=== PATIENT | male | born 1950 | race Caucasian/White ===

== ENCOUNTER → 2020-07-10 09:47 | Outpatient (BNVA) | payer MEDICARE, OTHER, SELFPAY | PROVIDERS: PCP Physician Assistant; Visit Provider Internal Medicine | DX: I48.19 Other persistent atrial fibrillation (principal); Z51.81 Encounter for therapeutic drug level monitoring; Z79.01 Long term (current) use of anticoagulants | CPT/HCPCS: 99211 ==

== ENCOUNTER → 2020-07-24 09:35 | Outpatient (BNVA) | payer MEDICARE, OTHER, SELFPAY | PROVIDERS: PCP Physician Assistant; Visit Provider Internal Medicine | DX: I48.19 Other persistent atrial fibrillation (principal); Z51.81 Encounter for therapeutic drug level monitoring; Z79.01 Long term (current) use of anticoagulants | CPT/HCPCS: Q3014 ==

== ENCOUNTER → 2020-08-07 08:54 | Outpatient (BNVA) | payer MEDICARE, OTHER, SELFPAY | PROVIDERS: PCP Physician Assistant; Visit Provider Internal Medicine | DX: Z76.89 Persons encountering health services in other specified circumstances (principal) ==

== ENCOUNTER → 2020-08-21 14:40 | Outpatient (BNVA) | payer MEDICARE, OTHER, SELFPAY | PROVIDERS: PCP Physician Assistant; Visit Provider Internal Medicine | DX: I48.19 Other persistent atrial fibrillation (principal); Z51.81 Encounter for therapeutic drug level monitoring; Z79.01 Long term (current) use of anticoagulants | CPT/HCPCS: 99211 ==

== ENCOUNTER → 2020-09-02 13:48 | Outpatient (BNVA) | payer MEDICARE, OTHER, SELFPAY | PROVIDERS: PCP Physician Assistant; Visit Provider Internal Medicine | DX: Z76.89 Persons encountering health services in other specified circumstances (principal) ==

== ENCOUNTER → 2020-09-11 14:20 | Outpatient (BNVA) | payer MEDICARE, OTHER, SELFPAY | PROVIDERS: PCP Physician Assistant; Visit Provider Internal Medicine | DX: Z76.89 Persons encountering health services in other specified circumstances (principal) ==

== ENCOUNTER → 2020-09-25 15:13 | Outpatient (BNVA) | payer MEDICARE, OTHER, SELFPAY | PROVIDERS: PCP Physician Assistant; Visit Provider Internal Medicine | DX: Z76.89 Persons encountering health services in other specified circumstances (principal) ==

== ENCOUNTER → 2020-10-09 14:06 | Outpatient (BNVA) | payer MEDICARE, OTHER, SELFPAY | PROVIDERS: PCP Physician Assistant; Visit Provider Internal Medicine | DX: Z76.89 Persons encountering health services in other specified circumstances (principal) ==

== ENCOUNTER → 2020-10-25 14:18 | Outpatient (BNVA) | payer MEDICARE, OTHER, SELFPAY | PROVIDERS: PCP Physician Assistant; Visit Provider Internal Medicine ==

== ENCOUNTER → 2020-11-08 15:03 | Outpatient (BNVA) | payer MEDICARE, OTHER, SELFPAY | PROVIDERS: PCP Physician Assistant; Visit Provider Internal Medicine ==

== ENCOUNTER 2020-11-11 13:42 | Outpatient (REF) | payer MEDICARE, OTHER, SELFPAY | END 2020-11-11 13:43 | disposition home or self-care (01) | LOC: HO.LAB 13:42 | PROVIDERS: Visit Provider Internal Medicine | DX: Z20.822 Contact with and (suspected) exposure to COVID-19 (principal) | CPT/HCPCS: 36415; C9803; U0003; U0005 ==

== ENCOUNTER → 2020-11-20 11:28 | Outpatient (BNVA) | payer MEDICARE, OTHER, SELFPAY | PROVIDERS: PCP Physician Assistant; Visit Provider Internal Medicine ==

== ENCOUNTER → 2020-11-27 16:27 | Outpatient (BNVA) | payer MEDICARE, OTHER, SELFPAY | PROVIDERS: PCP Physician Assistant; Visit Provider Internal Medicine ==

== ENCOUNTER → 2020-12-11 13:22 | Outpatient (BNVA) | payer MEDICARE, OTHER, SELFPAY | PROVIDERS: PCP Physician Assistant; Visit Provider Internal Medicine ==

== ENCOUNTER 2020-12-17 10:09 | Outpatient (REF) | payer MEDICARE, OTHER, SELFPAY | END 2020-12-17 10:10 | disposition home or self-care (01) | LOC: HO.LAB 10:09 | PROVIDERS: Visit Provider Internal Medicine | DX: Z13.89 Encounter for screening for other disorder (principal) | CPT/HCPCS: 36415; C9803; U0003 ==

== ENCOUNTER 2020-12-17 11:10 | Outpatient (REF) | payer MEDICARE, OTHER, SELFPAY ==
[2020-12-17 13:33] LABS: Estimated Average Glucose 108 mg/dL; Hemoglobin A1c % 5.4 %
[2020-12-17 13:38] LABS: Hematocrit 48.4 % (42-52); Hemoglobin 16.9 g/dl (14.0-18.0); Mean Corpuscular HGB Conc 34.9 g/dl (31.0-36.0); Mean Corpuscular Hemoglobin 33.7 pg (27.0-33.0); Mean Corpuscular Volume 96.4 fL (80-98); Mean Platelet Volume 11.8 fL (9.4-12.4); Platelet Count 179 X10*3/uL (160-400); Red Blood Count 5.02 X10*6/uL (4.60-5.80); Red Cell Distribution Width 14.8 % (11.0-16.0); White Blood Count 8.4 X10*3/uL (4.8-10.8)
[2020-12-17 13:44] LABS: Alanine Aminotransferase 22 U/L (0-40); Albumin Level 4.1 g/dL (3.5-5.0); Alkaline Phosphatase 44 U/L (39-117); Anion Gap 10 (12-20); Aspartate Amino Transferase 25 U/L (5-37); Bilirubin Total 0.9 mg/dL (0.0-1.0); Blood Urea Nitrogen 21 mg/dL (9-16); Calcium 8.5 mg/dL (8.4-10.2); Carbon Dioxide 26 mmol/L (22-29); Chloride 108 mmol/L (96-108); Cholesterol 157 mg/dL; Estimated Glomerular Filt Rate > 60; Glucose Fasting 96 mg/dL (60-99); HDL Cholesterol 44 mg/dL; LDL Cholesterol Calculated 85 mg/dl; Potassium 4.4 mmol/L (3.3-5.1); Sodium 140 mmol/L (135-145); Total Protein 6.7 g/dL (6.5-8.0); Triglycerides 140 mg/dL
[2020-12-17 13:57] LABS: TSH reflex Free T4 2.25 uIU/mL (0.32-4.0)
== END 2020-12-17 11:11 | disposition home or self-care (01) ==
LOC: HO.10HDL 11:10
PROVIDERS: Visit Provider Physician Assistant
DX: I10 Essential (primary) hypertension (principal); I48.19 Other persistent atrial fibrillation; E78.2 Mixed hyperlipidemia; Z20.822 Contact with and (suspected) exposure to COVID-19
CPT/HCPCS: 36415; 80053; 80061; 83036; 84443; 85027; C9803; U0003

== ENCOUNTER → 2020-12-25 12:41 | Outpatient (BNVA) | payer MEDICARE, OTHER, SELFPAY | PROVIDERS: PCP Physician Assistant; Visit Provider Internal Medicine ==

== ENCOUNTER → 2021-01-08 11:18 | Outpatient (BNVA) | payer MEDICARE, OTHER, SELFPAY | PROVIDERS: PCP Physician Assistant; Visit Provider Internal Medicine | DX: I48.19 Other persistent atrial fibrillation (principal); Z51.81 Encounter for therapeutic drug level monitoring; Z79.01 Long term (current) use of anticoagulants | CPT/HCPCS: Q3014 ==

== ENCOUNTER 2021-01-14 11:01 | Outpatient (REF) | payer MEDICARE, OTHER, SELFPAY | END 2021-01-14 11:02 | disposition home or self-care (01) | LOC: HO.LAB 11:01 | PROVIDERS: Visit Provider Internal Medicine | DX: Z20.822 Contact with and (suspected) exposure to COVID-19 (principal) | CPT/HCPCS: C9803; U0003; U0005 ==

== ENCOUNTER → 2021-01-16 10:23 | Outpatient (BNVA) | payer MEDICARE, OTHER, SELFPAY | PROVIDERS: PCP Physician Assistant; Visit Provider Internal Medicine | DX: I48.19 Other persistent atrial fibrillation (principal); Z79.01 Long term (current) use of anticoagulants; Z51.81 Encounter for therapeutic drug level monitoring | CPT/HCPCS: Q3014 ==

== ENCOUNTER → 2021-01-22 14:57 | Outpatient (BNVA) | payer MEDICARE, OTHER, SELFPAY | PROVIDERS: PCP Physician Assistant; Visit Provider Internal Medicine ==

== ENCOUNTER → 2021-01-29 14:41 | Outpatient (BNVA) | payer MEDICARE, OTHER, SELFPAY | PROVIDERS: PCP Physician Assistant; Visit Provider Internal Medicine ==

== ENCOUNTER → 2021-02-12 13:36 | Outpatient (BNVA) | payer MEDICARE, OTHER, SELFPAY | PROVIDERS: PCP Physician Assistant; Visit Provider Internal Medicine ==

== ENCOUNTER → 2021-02-26 12:02 | Outpatient (BNVA) | payer MEDICARE, OTHER, SELFPAY | PROVIDERS: PCP Physician Assistant; Visit Provider Internal Medicine ==

== ENCOUNTER → 2021-03-12 13:32 | Outpatient (BNVA) | payer MEDICARE, OTHER, SELFPAY | PROVIDERS: PCP Physician Assistant; Visit Provider Internal Medicine | DX: I48.19 Other persistent atrial fibrillation (principal) | CPT/HCPCS: Q3014 ==

== ENCOUNTER → 2021-03-19 15:50 | Outpatient (BNVA) | payer MEDICARE, OTHER, SELFPAY | PROVIDERS: PCP Physician Assistant; Visit Provider Internal Medicine ==

== ENCOUNTER → 2021-04-03 11:18 | Outpatient (BNVA) | payer MEDICARE, OTHER, SELFPAY | PROVIDERS: PCP Physician Assistant; Visit Provider Internal Medicine | DX: I48.19 Other persistent atrial fibrillation (principal); Z51.81 Encounter for therapeutic drug level monitoring; Z79.01 Long term (current) use of anticoagulants | CPT/HCPCS: Q3014 ==

== ENCOUNTER → 2021-04-21 11:42 | Outpatient (BNVA) | payer MEDICARE, OTHER, SELFPAY | PROVIDERS: PCP Physician Assistant; Visit Provider Internal Medicine ==

== ENCOUNTER → 2021-05-07 13:52 | Outpatient (BNVA) | payer MEDICARE, OTHER, SELFPAY | PROVIDERS: PCP Physician Assistant; Visit Provider Internal Medicine | DX: I48.19 Other persistent atrial fibrillation (principal) | CPT/HCPCS: Q3014 ==

== ENCOUNTER → 2021-05-09 15:12 | Outpatient (BNVA) | payer MEDICARE, OTHER, SELFPAY | PROVIDERS: PCP Physician Assistant; Visit Provider Internal Medicine | DX: I48.19 Other persistent atrial fibrillation (principal) | CPT/HCPCS: Q3014 ==

== ENCOUNTER → 2021-05-12 16:36 | Outpatient (BNVA) | payer MEDICARE, OTHER, SELFPAY | PROVIDERS: PCP Physician Assistant; Visit Provider Internal Medicine | DX: Z13.89 Encounter for screening for other disorder (principal) | CPT/HCPCS: Q3014 ==

== ENCOUNTER → 2021-05-21 13:15 | Outpatient (BNVA) | payer MEDICARE, OTHER, SELFPAY | PROVIDERS: PCP Physician Assistant; Visit Provider Internal Medicine | DX: I48.19 Other persistent atrial fibrillation (principal); Z51.81 Encounter for therapeutic drug level monitoring; Z79.01 Long term (current) use of anticoagulants | CPT/HCPCS: 85610; 99211 ==

== ENCOUNTER → 2021-05-23 13:43 | Outpatient (BNVA) | payer MEDICARE, OTHER, SELFPAY | PROVIDERS: PCP Physician Assistant; Visit Provider Internal Medicine | DX: I48.19 Other persistent atrial fibrillation (principal) | CPT/HCPCS: Q3014 ==

== ENCOUNTER → 2021-05-27 14:11 | Outpatient (BNVA) | payer MEDICARE, OTHER, SELFPAY | PROVIDERS: PCP Physician Assistant; Visit Provider Internal Medicine ==

== ENCOUNTER → 2021-06-03 10:46 | Outpatient (BNVA) | payer MEDICARE, OTHER, SELFPAY | PROVIDERS: PCP Physician Assistant; Visit Provider Internal Medicine ==

== ENCOUNTER 2021-06-04 15:52 | Outpatient (REF) | payer MEDICARE, OTHER, SELFPAY ==
[2021-06-04 17:05] LABS: Hematocrit 47.4 % (42-52); Hemoglobin 16.4 g/dl (14.0-18.0); Mean Corpuscular HGB Conc 34.6 g/dl (31.0-36.0); Mean Corpuscular Hemoglobin 33.3 pg (27.0-33.0); Mean Corpuscular Volume 96.3 fL (80-98); Mean Platelet Volume 10.8 fL (9.4-12.4); Platelet Count 217 X10*3/uL (160-400); Red Blood Count 4.92 X10*6/uL (4.60-5.80); Red Cell Distribution Width 15.3 % (11.0-16.0); White Blood Count 8.7 X10*3/uL (4.8-10.8)
[2021-06-04 17:26] LABS: Alanine Aminotransferase 18 U/L (0-40); Alkaline Phosphatase 47 U/L (39-117); Anion Gap 10 (12-20); Aspartate Amino Transferase 23 U/L (5-37); Bilirubin Direct 0.2 mg/dL (0.0-0.5); Bilirubin Total 0.5 mg/dL (0.0-1.0); Blood Urea Nitrogen 23 mg/dL (9-16); Calcium 9.2 mg/dL (8.4-10.2); Carbon Dioxide 28 mmol/L (22-29); Chloride 106 mmol/L (96-108); Estimated Glomerular Filt Rate > 60; Glucose Random 100 mg/dL (60-115); Potassium 4.4 mmol/L (3.3-5.1); Sodium 140 mmol/L (135-145); Total Protein 6.7 g/dL (6.5-8.0)
== END 2021-06-04 15:53 | disposition home or self-care (01) ==
LOC: HO.LAB 15:52
PROVIDERS: Visit Provider Physician Assistant
DX: Z01.818 Encounter for other preprocedural examination (principal); I10 Essential (primary) hypertension
CPT/HCPCS: 36415; 80048; 80076; 85027

== ENCOUNTER 2021-06-10 11:39 | Outpatient (REF) | payer MEDICARE, OTHER, SELFPAY | END 2021-06-10 11:40 | disposition home or self-care (01) | LOC: HO.LAB 11:39 | PROVIDERS: PCP Physician Assistant; Visit Provider Internal Medicine | DX: Z20.822 Contact with and (suspected) exposure to COVID-19 (principal) | CPT/HCPCS: C9803; U0003; U0005 ==

== ENCOUNTER → 2021-06-11 12:58 | Outpatient (BNVA) | payer MEDICARE, OTHER, SELFPAY | PROVIDERS: PCP Physician Assistant; Visit Provider Internal Medicine | DX: I48.19 Other persistent atrial fibrillation (principal); Z51.81 Encounter for therapeutic drug level monitoring; Z79.01 Long term (current) use of anticoagulants | CPT/HCPCS: Q3014 ==

== ENCOUNTER → 2021-06-27 13:57 | Outpatient (BNVA) | payer MEDICARE, OTHER, SELFPAY | PROVIDERS: PCP Physician Assistant; Visit Provider Internal Medicine | DX: I48.19 Other persistent atrial fibrillation (principal); Z51.81 Encounter for therapeutic drug level monitoring; Z79.01 Long term (current) use of anticoagulants | CPT/HCPCS: Q3014 ==

== ENCOUNTER → 2021-06-30 09:43 | Outpatient (BNVA) | payer MEDICARE, OTHER, SELFPAY | PROVIDERS: PCP Physician Assistant; Visit Provider Internal Medicine | DX: I48.19 Other persistent atrial fibrillation (principal) | CPT/HCPCS: Q3014 ==

== ENCOUNTER → 2021-07-02 09:48 | Outpatient (BNVA) | payer MEDICARE, OTHER, SELFPAY | PROVIDERS: PCP Physician Assistant; Visit Provider Internal Medicine | DX: I48.19 Other persistent atrial fibrillation (principal) | CPT/HCPCS: Q3014 ==

== ENCOUNTER → 2021-07-04 14:22 | Outpatient (BNVA) | payer MEDICARE, OTHER, SELFPAY | PROVIDERS: PCP Physician Assistant; Visit Provider Internal Medicine | DX: I48.19 Other persistent atrial fibrillation (principal) | CPT/HCPCS: Q3014 ==

== ENCOUNTER → 2021-07-07 13:26 | Outpatient (BNVA) | payer MEDICARE, OTHER, SELFPAY | PROVIDERS: PCP Physician Assistant; Visit Provider Internal Medicine | DX: I48.19 Other persistent atrial fibrillation (principal) | CPT/HCPCS: Q3014 ==

== ENCOUNTER → 2021-07-08 14:33 | Outpatient (BNVA) | payer MEDICARE, OTHER, SELFPAY | PROVIDERS: PCP Physician Assistant; Visit Provider Internal Medicine | DX: I48.19 Other persistent atrial fibrillation (principal) | CPT/HCPCS: Q3014 ==

== ENCOUNTER → 2021-07-09 11:08 | Outpatient (BNVA) | payer MEDICARE, OTHER, SELFPAY | PROVIDERS: PCP Physician Assistant; Visit Provider Internal Medicine | DX: I48.19 Other persistent atrial fibrillation (principal) | CPT/HCPCS: Q3014 ==

== ENCOUNTER → 2021-07-10 15:16 | Outpatient (BNVA) | payer MEDICARE, OTHER, SELFPAY | PROVIDERS: PCP Physician Assistant; Visit Provider Internal Medicine | DX: I48.19 Other persistent atrial fibrillation (principal) | CPT/HCPCS: Q3014 ==

== ENCOUNTER → 2021-07-16 09:59 | Outpatient (BNVA) | payer MEDICARE, OTHER, SELFPAY | PROVIDERS: PCP Physician Assistant; Visit Provider Internal Medicine | DX: I48.19 Other persistent atrial fibrillation (principal); Z51.81 Encounter for therapeutic drug level monitoring; Z79.01 Long term (current) use of anticoagulants | CPT/HCPCS: Q3014 ==

== ENCOUNTER → 2021-07-23 15:48 | Outpatient (BNVA) | payer MEDICARE, OTHER, SELFPAY | PROVIDERS: PCP Physician Assistant; Visit Provider Internal Medicine ==

== ENCOUNTER → 2021-07-31 08:12 | Outpatient (BNVA) | payer MEDICARE, OTHER, SELFPAY | PROVIDERS: PCP Physician Assistant; Visit Provider Internal Medicine | DX: I48.19 Other persistent atrial fibrillation (principal) | CPT/HCPCS: Q3014 ==

== ENCOUNTER → 2021-08-07 09:35 | Outpatient (BNVA) | payer MEDICARE, OTHER, SELFPAY | PROVIDERS: PCP Physician Assistant; Visit Provider Internal Medicine ==

== ENCOUNTER → 2021-08-13 14:53 | Outpatient (BNVA) | payer MEDICARE, OTHER, SELFPAY | PROVIDERS: PCP Physician Assistant; Visit Provider Internal Medicine | DX: I48.19 Other persistent atrial fibrillation (principal); Z51.81 Encounter for therapeutic drug level monitoring; Z79.01 Long term (current) use of anticoagulants | CPT/HCPCS: Q3014 ==

== ENCOUNTER → 2021-09-03 13:24 | Outpatient (BNVA) | payer MEDICARE, OTHER, SELFPAY | PROVIDERS: PCP Physician Assistant; Visit Provider Internal Medicine | DX: I48.19 Other persistent atrial fibrillation (principal) | CPT/HCPCS: Q3014 ==

== ENCOUNTER → 2021-09-10 15:19 | Outpatient (BNVA) | payer MEDICARE, OTHER, SELFPAY | PROVIDERS: PCP Physician Assistant; Visit Provider Internal Medicine | DX: I48.19 Other persistent atrial fibrillation (principal) | CPT/HCPCS: Q3014 ==

== ENCOUNTER → 2021-09-17 14:13 | Outpatient (BNVA) | payer MEDICARE, OTHER, SELFPAY | PROVIDERS: PCP Physician Assistant; Visit Provider Internal Medicine ==

== ENCOUNTER → 2021-09-24 15:48 | Outpatient (BNVA) | payer MEDICARE, OTHER, SELFPAY | PROVIDERS: PCP Physician Assistant; Visit Provider Internal Medicine ==

== ENCOUNTER → 2021-10-01 12:53 | Outpatient (BNVA) | payer MEDICARE, OTHER, SELFPAY | PROVIDERS: PCP Physician Assistant; Visit Provider Internal Medicine ==

== ENCOUNTER → 2021-10-08 15:18 | Outpatient (BNVA) | payer MEDICARE, OTHER, SELFPAY | PROVIDERS: PCP Physician Assistant; Visit Provider Internal Medicine ==

== ENCOUNTER → 2021-10-15 15:08 | Outpatient (BNVA) | payer MEDICARE, OTHER, SELFPAY | PROVIDERS: PCP Physician Assistant; Visit Provider Internal Medicine ==

== ENCOUNTER → 2021-10-29 15:34 | Outpatient (BNVA) | payer MEDICARE, OTHER, SELFPAY | PROVIDERS: PCP Physician Assistant; Visit Provider Internal Medicine ==

== ENCOUNTER → 2021-11-13 14:12 | Outpatient (BNVA) | payer MEDICARE, OTHER, SELFPAY | PROVIDERS: PCP Physician Assistant; Visit Provider Internal Medicine | DX: Z13.89 Encounter for screening for other disorder (principal) ==

== ENCOUNTER → 2021-11-26 11:44 | Outpatient (BNVA) | payer MEDICARE, OTHER, SELFPAY | PROVIDERS: PCP Physician Assistant; Visit Provider Internal Medicine | DX: Z13.89 Encounter for screening for other disorder (principal) ==

== ENCOUNTER → 2021-12-10 13:06 | Outpatient (BNVA) | payer MEDICARE, OTHER, SELFPAY | PROVIDERS: PCP Physician Assistant; Visit Provider Internal Medicine | DX: Z13.89 Encounter for screening for other disorder (principal) ==

== ENCOUNTER → 2021-12-24 13:59 | Outpatient (BNVA) | payer MEDICARE, OTHER, SELFPAY | PROVIDERS: PCP Physician Assistant; Visit Provider Internal Medicine | DX: Z13.89 Encounter for screening for other disorder (principal) ==

== ENCOUNTER → 2022-01-13 12:00 | Outpatient (BNVA) | payer MEDICARE, OTHER, SELFPAY | PROVIDERS: PCP Physician Assistant; Visit Provider Internal Medicine | DX: I48.19 Other persistent atrial fibrillation (principal); Z51.81 Encounter for therapeutic drug level monitoring; Z79.01 Long term (current) use of anticoagulants | CPT/HCPCS: Q3014 ==

== ENCOUNTER → 2022-01-20 15:38 | Outpatient (BNVA) | payer MEDICARE, OTHER, SELFPAY | PROVIDERS: PCP Physician Assistant; Visit Provider Internal Medicine | DX: Z13.89 Encounter for screening for other disorder (principal) ==

== ENCOUNTER → 2022-02-04 14:20 | Outpatient (BNVA) | payer MEDICARE, OTHER, SELFPAY | PROVIDERS: PCP Physician Assistant; Visit Provider Internal Medicine | DX: Z13.89 Encounter for screening for other disorder (principal) ==

== ENCOUNTER → 2022-02-18 13:57 | Outpatient (BNVA) | payer MEDICARE, OTHER, SELFPAY | PROVIDERS: PCP Physician Assistant; Visit Provider Internal Medicine | DX: Z79.01 Long term (current) use of anticoagulants (principal) ==

== ENCOUNTER → 2022-03-05 13:56 | Outpatient (BNVA) | payer MEDICARE, OTHER, SELFPAY | PROVIDERS: PCP Physician Assistant; Visit Provider Internal Medicine | DX: Z79.01 Long term (current) use of anticoagulants (principal) ==

== ENCOUNTER 2022-04-28 10:58 | Outpatient (REF) | payer MEDICARE, OTHER, SELFPAY ==
[2022-04-28 13:43] LABS: Hematocrit 46.2 % (42.0-52.0); Hemoglobin 15.9 g/dl (14.0-18.0); Mean Corpuscular HGB Conc 34.4 g/dl (31.0-36.0); Mean Corpuscular Hemoglobin 32.8 pg (27.0-33.0); Mean Corpuscular Volume 95.3 fL (80.0-98.0); Mean Platelet Volume 11.2 fL (9.4-12.4); Platelet Count 215 X10*3/uL (160-400); Red Blood Count 4.85 X10*6/uL (4.60-5.80); Red Cell Distribution Width 15.3 % (11.0-16.0)
[2022-04-28 16:10] LABS: Anion Gap 11 (12-20); Blood Urea Nitrogen 18 mg/dL (9-16); Calcium 8.7 mg/dL (8.4-10.2); Carbon Dioxide 26 mmol/L (22-29); Chloride 109 mmol/L (96-108); Estimated Glomerular Filt Rate > 60; Glucose Random 77 mg/dL (60-115); Iron 117 mcg/dL (45-160); Potassium 4.5 mmol/L (3.3-5.1); Sodium 141 mmol/L (135-145)
[2022-04-28 16:11] LABS: Percent Iron Saturation 49 % (15-50); Total Iron Binding Capacity 240 mcg/dL (228-428); Unsaturated Iron Binding 123 ug/dL
== END 2022-04-28 10:59 | disposition home or self-care (01) ==
LOC: HO.10HDL 10:58
PROVIDERS: Visit Provider Physician Assistant
DX: I95.0 Idiopathic hypotension (principal); D50.9 Iron deficiency anemia, unspecified
CPT/HCPCS: 36415; 80048; 83540; 85027

== ENCOUNTER → 2022-05-13 13:42 | Outpatient (BNVA) | payer MEDICARE, OTHER, SELFPAY | PROVIDERS: PCP Physician Assistant; Visit Provider Internal Medicine | DX: I48.19 Other persistent atrial fibrillation (principal); Z79.01 Long term (current) use of anticoagulants; Z51.81 Encounter for therapeutic drug level monitoring | CPT/HCPCS: Q3014 ==

== ENCOUNTER → 2022-05-21 13:06 | Outpatient (BNVA) | payer MEDICARE, OTHER, SELFPAY | PROVIDERS: PCP Physician Assistant; Visit Provider Internal Medicine | DX: I48.19 Other persistent atrial fibrillation (principal); Z79.01 Long term (current) use of anticoagulants; Z51.81 Encounter for therapeutic drug level monitoring | CPT/HCPCS: 85610; 99211 ==

== ENCOUNTER → 2022-06-04 15:17 | Outpatient (BNVA) | payer MEDICARE, OTHER, SELFPAY | PROVIDERS: PCP Physician Assistant; Visit Provider Internal Medicine | DX: I48.19 Other persistent atrial fibrillation (principal); Z51.81 Encounter for therapeutic drug level monitoring; Z79.01 Long term (current) use of anticoagulants | CPT/HCPCS: Q3014 ==

== ENCOUNTER → 2022-08-18 09:52 | Outpatient (BNVA) | payer MEDICARE, OTHER, SELFPAY | PROVIDERS: PCP Physician Assistant; Visit Provider Psychiatry & Neurology Neurology | DX: G30.9 Alzheimer's disease, unspecified (principal); F02.80 Dementia in other diseases classified elsewhere, unspecified severity, without behavioral disturbance, psychotic disturbance, mood disturbance, and anxiety; G47.33 Obstructive sleep apnea (adult) (pediatric) | CPT/HCPCS: 99202 ==

== ENCOUNTER → 2022-09-23 10:56 | Outpatient (BNVA) | payer MEDICARE, OTHER, SELFPAY | PROVIDERS: PCP Physician Assistant; Visit Provider Internal Medicine | DX: Z79.01 Long term (current) use of anticoagulants (principal) ==

== ENCOUNTER → 2022-09-29 15:10 | Outpatient (BNVA) | payer MEDICARE, OTHER, SELFPAY | PROVIDERS: PCP Physician Assistant; Visit Provider Internal Medicine | DX: Z79.01 Long term (current) use of anticoagulants (principal) ==

== ENCOUNTER → 2022-10-07 13:07 | Outpatient (BNVA) | payer MEDICARE, OTHER, SELFPAY | PROVIDERS: PCP Physician Assistant; Visit Provider Internal Medicine | DX: Z79.01 Long term (current) use of anticoagulants (principal) ==

== ENCOUNTER → 2022-10-14 10:43 | Outpatient (BNVA) | payer MEDICARE, OTHER, SELFPAY | PROVIDERS: PCP Physician Assistant; Visit Provider Internal Medicine | DX: Z79.01 Long term (current) use of anticoagulants (principal) ==

== ENCOUNTER → 2022-10-22 14:59 | Outpatient (BNVA) | payer MEDICARE, OTHER, SELFPAY | PROVIDERS: PCP Physician Assistant; Visit Provider Internal Medicine | DX: Z79.01 Long term (current) use of anticoagulants (principal) ==

== ENCOUNTER → 2022-10-28 13:17 | Outpatient (BNVA) | payer MEDICARE, OTHER, SELFPAY | PROVIDERS: PCP Physician Assistant; Visit Provider Internal Medicine | DX: Z79.01 Long term (current) use of anticoagulants (principal) ==

== ENCOUNTER → 2022-11-04 10:42 | Outpatient (BNVA) | payer MEDICARE, OTHER, SELFPAY | PROVIDERS: PCP Physician Assistant; Visit Provider Internal Medicine | DX: Z79.01 Long term (current) use of anticoagulants (principal) ==

== ENCOUNTER → 2022-11-18 11:54 | Outpatient (BNVA) | payer MEDICARE, OTHER, SELFPAY | PROVIDERS: PCP Physician Assistant; Visit Provider Internal Medicine | DX: Z79.01 Long term (current) use of anticoagulants (principal) ==

== ENCOUNTER → 2022-12-02 10:41 | Outpatient (BNVA) | payer MEDICARE, OTHER, SELFPAY | PROVIDERS: PCP Physician Assistant; Visit Provider Internal Medicine | DX: Z79.01 Long term (current) use of anticoagulants (principal) ==

== ENCOUNTER → 2022-12-16 09:08 | Outpatient (BNVA) | payer MEDICARE, OTHER, SELFPAY | PROVIDERS: PCP Physician Assistant; Visit Provider Internal Medicine | DX: Z79.01 Long term (current) use of anticoagulants (principal) ==

== ENCOUNTER → 2022-12-30 14:31 | Outpatient (BNVA) | payer MEDICARE, OTHER, SELFPAY | PROVIDERS: PCP Physician Assistant; Visit Provider Internal Medicine | DX: Z79.01 Long term (current) use of anticoagulants (principal) ==

== ENCOUNTER → 2023-01-13 14:50 | Outpatient (BNVA) | payer MEDICARE, OTHER, SELFPAY | PROVIDERS: PCP Physician Assistant; Visit Provider Internal Medicine ==

== ENCOUNTER 2023-01-20 09:47 | Outpatient (REF) | payer MEDICARE, OTHER, SELFPAY ==
[2023-01-20 11:06] LABS: Anion Gap 10 (12-20); Blood Urea Nitrogen 19 mg/dL (9-16); Calcium 8.8 mg/dL (8.4-10.2); Carbon Dioxide 30 mmol/L (22-29); Chloride 107 mmol/L (96-108); Cholesterol 141 mg/dL; Estimated Glomerular Filt Rate > 60; Glucose Fasting 101 mg/dL (60-99); HDL Cholesterol 38 mg/dL; LDL Cholesterol Calculated 77 mg/dl; Potassium 4.6 mmol/L (3.3-5.1); Sodium 142 mmol/L (135-145); Triglycerides 131 mg/dL
[2023-01-20 11:23] LABS: Prostate Specific Antigen 1.35 ng/mL (<0.05-4.0)
== END 2023-01-20 09:48 | disposition home or self-care (01) ==
LOC: HO.LAB 09:47
PROVIDERS: Nurse Practitioner Family; PCP Physician Assistant; Visit Provider Physician Assistant
DX: Z12.5 Encounter for screening for malignant neoplasm of prostate (principal); Z13.1 Encounter for screening for diabetes mellitus; E78.5 Hyperlipidemia, unspecified
CPT/HCPCS: 36415; 80048; 80061; 84153

== ENCOUNTER → 2023-01-27 13:26 | Outpatient (BNVA) | payer MEDICARE, OTHER, SELFPAY | PROVIDERS: PCP Physician Assistant; Visit Provider Internal Medicine ==

== ENCOUNTER → 2023-02-10 14:48 | Outpatient (BNVA) | payer MEDICARE, OTHER, SELFPAY | PROVIDERS: PCP Physician Assistant; Visit Provider Internal Medicine ==

== ENCOUNTER → 2023-02-16 10:44 | Outpatient (BNVA) | payer MEDICARE, OTHER, SELFPAY | PROVIDERS: PCP Physician Assistant; Visit Provider Psychiatry & Neurology Neurology | DX: G30.9 Alzheimer's disease, unspecified (principal); F02.80 Dementia in other diseases classified elsewhere, unspecified severity, without behavioral disturbance, psychotic disturbance, mood disturbance, and anxiety; G47.33 Obstructive sleep apnea (adult) (pediatric) | CPT/HCPCS: 99212 ==

== ENCOUNTER → 2023-02-24 13:54 | Outpatient (BNVA) | payer MEDICARE, OTHER, SELFPAY | PROVIDERS: PCP Physician Assistant; Visit Provider Internal Medicine ==

== ENCOUNTER → 2023-03-10 11:49 | Outpatient (BNVA) | payer MEDICARE, OTHER, SELFPAY | PROVIDERS: PCP Physician Assistant; Visit Provider Internal Medicine ==

== ENCOUNTER → 2023-03-24 09:12 | Outpatient (BNVA) | payer MEDICARE, OTHER, SELFPAY | PROVIDERS: PCP Physician Assistant; Visit Provider Internal Medicine ==

== ENCOUNTER → 2023-04-07 13:38 | Outpatient (BNVA) | payer MEDICARE, OTHER, SELFPAY | PROVIDERS: PCP Physician Assistant; Visit Provider Internal Medicine ==

== ENCOUNTER → 2023-04-21 13:56 | Outpatient (BNVA) | payer MEDICARE, OTHER, SELFPAY | PROVIDERS: PCP Physician Assistant; Visit Provider Internal Medicine ==

== ENCOUNTER → 2023-05-05 11:37 | Outpatient (BNVA) | payer MEDICARE, OTHER, SELFPAY | PROVIDERS: PCP Physician Assistant; Visit Provider Internal Medicine ==

== ENCOUNTER → 2023-05-19 08:49 | Outpatient (BNVA) | payer MEDICARE, OTHER, SELFPAY | PROVIDERS: PCP Physician Assistant; Visit Provider Internal Medicine ==

== ENCOUNTER → 2023-06-02 13:17 | Outpatient (BNVA) | payer MEDICARE, OTHER, SELFPAY | PROVIDERS: PCP Physician Assistant; Visit Provider Internal Medicine ==

== ENCOUNTER 2023-07-06 08:37 | Outpatient (REF) | payer MEDICARE, OTHER, SELFPAY ==
[2023-07-06 09:46] LABS: Hematocrit 47.3 % (42.0-52.0); Hemoglobin 16.4 g/dl (14.0-18.0); Mean Corpuscular HGB Conc 34.7 g/dl (31.0-36.0); Mean Corpuscular Hemoglobin 33.2 pg (27.0-33.0); Mean Corpuscular Volume 95.7 fL (80.0-98.0); Mean Platelet Volume 10.4 fL (9.4-12.4); Platelet Count 226 X10*3/uL (160-400); Red Blood Count 4.94 X10*6/uL (4.60-5.80); Red Cell Distribution Width 14.8 % (11.0-16.0); White Blood Count 9.2 X10*3/uL (4.8-10.8)
[2023-07-06 10:37] LABS: Prostate Specific Antigen Scr 1.61 ng/mL (<0.05-4.0)
[2023-07-06 10:39] LABS: Alanine Aminotransferase 18 U/L (0-40); Albumin Level 3.8 g/dL (3.5-5.0); Alkaline Phosphatase 41 U/L (39-117); Anion Gap 11 (12-20); Aspartate Amino Transferase 20 U/L (5-37); Bilirubin Total 0.8 mg/dL (0.0-1.0); Blood Urea Nitrogen 16 mg/dL (9-16); Carbon Dioxide 28 mmol/L (22-29); Chloride 107 mmol/L (96-108); Cholesterol 136 mg/dL (<200); Estimated Glomerular Filt Rate > 60; Glucose Fasting 103 mg/dL (60-99); HDL Cholesterol 45 mg/dL (>40); LDL Cholesterol Calculated 69 mg/dL (<100); Sodium 142 mmol/L (135-145); Total Protein 6.5 g/dL (6.5-8.0); Triglycerides 113 mg/dL (<150)
[2023-07-06 10:42] LABS: TSH reflex Free T4 2.91 uIU/mL (0.32-4.0)
== END 2023-07-06 08:38 | disposition home or self-care (01) ==
LOC: HO.LAB 08:37
PROVIDERS: PCP Physician Assistant; Visit Provider Physician Assistant
DX: I48.19 Other persistent atrial fibrillation (principal); E78.2 Mixed hyperlipidemia; Z12.5 Encounter for screening for malignant neoplasm of prostate
CPT/HCPCS: 36415; 80053; 80061; 84153; 84443; 85027

== ENCOUNTER 2023-08-19 15:09 | Outpatient (AMB) | payer MEDICARE, OTHER, SELFPAY ==
--- NOTE | 2023-08-19 15:37 | A.OFFVIS_ITS ---
Intake Vital Signs 08/19/23 15:39 Height 5 ft 11 in Weight 227 lb 4 oz BMI 31.7 BP 112/68 Blood Pressure Location Rt brachial Position Sitting Respiration 17 Pulse 68 Pulse Source Pulse Oximeter Pulse Oximetry (%) 97 Oxygen Delivery Method Room Air Intake Visit Reasons: 6 mnts f/u appt - Confirmed Intake Note: Pt presents to office for a 6 month follow up for dementia and Alzheimer's. Pt presents with his . She reports he has been sleepier than usual. Ruling Machine Set Up Operator Required: No Allergies cat dander [CAT DANDER] Allergy (Unknown, Verified 08/24/23 10:38) COUGHING seasonal Allergy (Unknown, Uncoded 08/19/23 15:38) UNKNOWN Medication List - Last Reconciled 08/19/23 by Therese Covarrubias MD [Alzheimers monoclonolantibody intravenously every 2 weeks for Alzheimer's research ] donepezil 10 mg PO DAILY finasteride 5 mg PO DAILY gabapentin 300 mg PO BEDTIME mecobalamin (vitamin B12) 1,000 mcg sublingual DAILY memantine 28 mg PO DAILY 90 days memantine ER (Namenda XR) PO PER PKG DIRections [NEURO MAG PO] rivaroxaban (Xarelto) 20 mg PO DAILY simvastatin 20 mg PO BEDTIME 90 days HPI HPI Comments History of Present Illness Details 72y/o male comes for further management of dementia ( Alzheimers ) .He is part of a study in [place] for amyloid plaques. He is sleeping more now - not sure if it is due to memantine. He started new CPAP and is using it regularly. In 2017 - he had a study that documented AMyloid Plaques and he started the study in 2019( Iv Antibody treatment q 2 weeks ). According to his he started having short term memory issues over 10 years ago which progressed. He was evaluated at [facility] and was diagnosed with A Lzheimers dementia. He has h/o VISHAL on CPAP. He is compliant with CPAP and sleeps good .He is followed up at Sleep Medicine services, [facility] home care. According to his he has declined . He is independent in all his ADLs, needs some cuing by , for dressing and showering.He is also more disinhibited. Both his parents had dementia His father had it in his 60s. [facility] Medical History DVT (deep venous thrombosis) Pre-op evaluation Surgical History History of hernia repair History of colonoscopy History of surgery Hx of arthrodesis S/P tendon repair Day[place] filter in place History of vasectomy History of splenectomy Family History Father Heart problem Cardiac arrest Dementia Mother Hypertension Dementia Glaucoma Daughter In good health Daughter In good health Daughter In good health Son In good health Housing: House Alcohol intake: current Alcohol intake frequency: holidays/special occasions only Alcohol type: beer Patient Tobacco Use Status: Never used Tobacco e-Cigarette/Vaping Use: Never Used Second Hand Smoke Exposure: No service: No Current occupational status: retired Cognitive needs: No Hearing needs: No Vision needs: No Physical Exam Vital Signs: Last Vital Signs Pulse 68 08/19/23 15:39 Resp 17 08/19/23 15:39 BP 112/68 08/19/23 15:39 Pulse Ox 97 08/19/23 15:39 Oxygen Delivery Method Room Air 08/19/23 15:39 BMI result Body Mass Index 31.7 Const General: cooperative, healthy appearing and comfortable Orientation/consciousness: oriented to person Limitations: no limitations Eyes Pupils: Equal, round and reactive pupils present Neck Neck: Yes no meningeal signs Neuro General: oriented to person, gait normal, tone normal, moves all extremities and no meningeal signs Cranial nerves: Yes CN's II-XII intact bilaterally, Yes Facial sensation intact/muscles of mastication intact, Yes Equal, round and reactive pupils present, Yes Bilaterally intact EOM present, Yes Nystagmus not present, Yes Normal facial strength present and Yes Midline tongue present Gait exam (Neuro): Normal gait present Motor exam (neuro): 5/5 motor strength present throughout, Normal motor muscle tone present throughout and Motor abnormalities not present Coordination: [id number] test normal Psych Appearance: grossly normal Speech and movement: Normal speech and movement present Assessment & Plan Assessment & Plan (1) Alzheimer's dementia: Comment: with disinhibition Code(s): G30.9 - Alzheimer's disease, unspecified; F02.80 - Dementia in other diseases classified elsewhere, unspecified severity, without behavioral disturbance, psychotic disturbance, mood disturbance, and anxiety Qualifiers: Alzheimer's disease onset: unspecified onset Dementia behavioral disturbance: without behavioral disturbance Qualified Code(s): G30.9 - Alzheimer's disease, unspecified; F02.80 - Dementia in other diseases classified elsewhere without behavioral disturbance (2) Obstructive sleep apnea: Code(s): G47.33 - Obstructive sleep apnea (adult) (pediatric) Plan Continue aricept 10mg qd Memantine XR 28 mg qd Continue CPAP . Medications: Refilled memantine 28 mg PO DAILY 90 ea 6RF 90 days donepezil 10 mg PO DAILY 90 tabs 2RF F02.80 - Dementia in other diseases classified elsewhere, unspecified severity, without behavioral disturbance, psychotic disturbance, mood disturbance, and anxiety, G30.9 - Alzheimer's disease, unspecified Coding Level of Care Code Est Pt Level 4 (22697) Diagnoses Alzheimer's dementia without behavioral disturbance, unspecified timing of dementia onset G30.9; F02.80 Alzheimer's disease onset: unspecified onset Dementia behavioral disturbance: without behavioral disturbance Obstructive sleep apnea G47.33
[2023-08-19 15:39] VITALS: BP 112/68; PULSE 68; RESP 17; O2SAT 97; BMI 31.7
== END 2023-08-19 16:04 | disposition home or self-care (01) ==
PROVIDERS: Visit Provider Psychiatry & Neurology Neurology
DX: G30.9 Alzheimer's disease, unspecified (principal); F02.80 Dementia in other diseases classified elsewhere, unspecified severity, without behavioral disturbance, psychotic disturbance, mood disturbance, and anxiety; G47.33 Obstructive sleep apnea (adult) (pediatric)
CPT/HCPCS: 99214

== ENCOUNTER → 2023-08-19 15:09 | Outpatient (BNVA) | payer MEDICARE, OTHER, SELFPAY | PROVIDERS: Visit Provider Psychiatry & Neurology Neurology | DX: G30.9 Alzheimer's disease, unspecified (principal); F02.80 Dementia in other diseases classified elsewhere, unspecified severity, without behavioral disturbance, psychotic disturbance, mood disturbance, and anxiety; G47.33 Obstructive sleep apnea (adult) (pediatric) | CPT/HCPCS: 99212 ==

== ENCOUNTER 2023-08-24 10:21 | Outpatient (AMB) | payer MEDICARE, OTHER, SELFPAY ==
--- NOTE | 2023-08-24 10:30 | MHC.PC.OV ---
Vital Signs 08/24/23 10:31 Height 5 ft 11 in Weight 225 lb 8 oz BMI 31.4 BP 112/60 Blood Pressure Location Lt brachial Position Sitting Pulse 65 Pulse Source Pulse Oximeter Pulse Oximetry (%) 97 Oxygen Delivery Method Room Air Intake Visit Reasons: f/u HLD Intake Note: Patient is here to follow up on HLD. Boarding Machine Operator Required: No Machine Cutter: Present Accompanied by: Daughter Allergies cat dander [CAT DANDER] Allergy (Unknown, Verified 08/24/23 10:38) COUGHING seasonal Allergy (Unknown, Uncoded 08/19/23 15:38) UNKNOWN Medication List - Last Reconciled 08/24/23 by Fabien Yang PA-C [Alzheimers monoclonolantibody intravenously every 2 weeks for Alzheimer's research ] donepezil 10 mg PO DAILY finasteride 5 mg PO DAILY gabapentin 300 mg PO BEDTIME mecobalamin (vitamin B12) 1,000 mcg sublingual DAILY memantine 28 mg PO DAILY 90 days [NEURO MAG PO] rivaroxaban (Xarelto) 20 mg PO DAILY simvastatin 20 mg PO BEDTIME 90 days Tobacco use date assessed: 08/24/23 Fall risk assessment: No Falls in past year Last assessed Fall Risk: 08/24/23 Dental Screening Dental Screen Date: 08/24/23 Did you have a dental visit in the last 12 months?: Yes Did you have a dental problem in the last 6 months where you did not have access to dental care?: No Was dental information given to patient?: Patient has dentist HPI f/u HLD HPI Details Patient is a 73-year-old male here ?today for follow-up visit..? Patient has a past medical history significant for persistent AFib, hyperlipidemia, BPH. .. Paroxysmal AFib:? Has been transition to Xarelto no overt signs of bleeding..? Denies any reports of chest discomfort, palpitations or shortness of breath. ? Obstructive sleep apnea:? patient uses CPAP nightly with Good affect. .. Alzheimer's disease:? Will be seeing a new neurologist in near future. At this time his makes all of his medical decisions. Continues on Namenda on denies a pill. reports his Alzheimer symptoms have been stable. Elevated fasting blood sugar: Noted elevated fasting blood sugar 103 on most recent labs. Will work on lifestyle modifications to reduce his blood sugars. .. Laboratory Tests 07/06/23 09:14 RBC 4.94 Fasting Glucose 103 H Cholesterol 136 LDL Cholesterol, C alc 69 PSA Screen 1.61 TSH 2.91 PFSH Medical History DVT (deep venous thrombosis) Pre-op evaluation Surgical History History of hernia repair History of colonoscopy History of surgery Hx of arthrodesis S/P tendon repair Froid filter in place History of vasectomy History of splenectomy Family History Father Heart problem Cardiac arrest Dementia Mother Hypertension Dementia Glaucoma Daughter In good health Daughter In good health Daughter In good health Son In good health Housing: House Alcohol intake: current Alcohol intake frequency: holidays/special occasions only Alcohol type: beer Patient Tobacco Use Status: Never used Tobacco e-Cigarette/Vaping Use: Never Used Second Hand Smoke Exposure: No service: No Current occupational status: retired Cognitive needs: No Hearing needs: No Vision needs: No Questionnaire Thrive Questionnaire Date Thrive assessed: 01/25/23 ROYER-7 AMB Questionnaire ROYER-7 Date ROYER - 7 assessed: 01/25/23 Source: Developed by Drs. Negro Hunt, Yee Castellano, Arya Singh and colleagues, with an educational randall from [employer]. Review of Systems Const Denies headache(s) Eyes Denies loss of vision ENT Denies vertigo, Denies dizziness, Denies headache(s) and Denies sore throat Card Denies chest pain, Denies leg edema and Denies lightheadedness Resp Denies cough, Denies hemoptysis and Denies wheezing GI Denies abdominal pain, Denies melena, Denies constipation, Denies diarrhea and Denies vomiting Denies dysuria, Denies urinary frequency and Denies urinary urgency Musc Denies arthralgias, Denies joint swelling, Denies numbness and Denies tingling Neuro Denies Abnormal speech present, Denies behavioral changes, Denies vertigo, Denies dizziness, Denies headache(s), Denies loss of vision, Denies memory loss, Denies numbness and Denies tingling Psych Denies anxiety, Denies behavioral changes, Denies depression, Denies memory loss and Denies panic attacks Bret/Lymph Denies easy bleeding and Denies easy bruising Aller/Immun Denies wheezing Physical exam (Primary Care) Vital Signs: Last Vital Signs Pulse 65 08/24/23 10:31 BP 112/60 08/24/23 10:31 Pulse Ox 97 08/24/23 10:31 Oxygen Delivery Method Room Air 08/24/23 10:31 BMI result Body Mass Index 31.4 BMI Assessment/Plan discussion: High Tobacco/Smoking Status: Tobacco use Status Tobacco use date assessed 08/24/23 08/24/23 10:36 Patient Tobacco Use Status Never used Tobacco 08/24/23 10:36 e-Cigarette/Vaping Use Never Used 08/24/23 10:36 Thrive Assessment: Date of Thrive Assessment Date Thrive assessed 01/25/23 08/24/23 10:36 Const Other: Obese General: healthy appearing, no acute distress, alert and awake Nutritional Appearance: well nourished Orientation/consciousness: oriented to person, oriented to place and oriented to time HENMT Ears: TM's normal bilaterally General nose exam: Normal nasal mucous membranes and turbinates present Eyes Conjunctivae: conjunctivae normal Sclerae: sclerae normal Pupils: Equal, round and reactive pupils present Neck Neck: Yes no lymphadenopathy and Yes no JVD Thyroid: Thyroid normal Carotids: no bruits Resp Effort & Inspection: normal respiratory effort and not tachypneic Auscultation: no crackles, no rales, no rhonchi and no wheezes Cardio Rate: regular rate Rhythm: regular rhythm Heart sounds: no murmurs and normal S1 and S2 GI Palpation (GI): Soft to palpation, nontender, no hepatomegaly and no splenomegaly Auscultation: normal bowel sounds Skin General skin exam: no rashes or lesions noted and dry skin Neuro General: oriented to person, oriented to place and oriented to time Cranial nerves: Yes Equal, round and reactive pupils present Speech: No Abnormal speech present Gait exam (Neuro): Normal gait present Motor exam (neuro): no tremor noted Extrem Right upper extremity: full ROM Left upper extremity: full ROM Right lower extremity: full ROM; no edema Left lower extremity: full ROM; no edema Psych Mental Status: mental status grossly normal Speech and movement: Normal speech and movement present Affect: normal affect Attitude: cooperative Thought process: Normal thought process present Assessment and Plan Assessment & Plan (1) Alzheimer's dementia: Comment: with disinhibition Code(s): G30.9 - Alzheimer's disease, unspecified; F02.80 - Dementia in other diseases classified elsewhere, unspecified severity, without behavioral disturbance, psychotic disturbance, mood disturbance, and anxiety Qualifiers: Alzheimer's disease onset: unspecified onset Dementia behavioral disturbance: without behavioral disturbance Qualified Code(s): G30.9 - Alzheimer's disease, unspecified; F02.80 - Dementia in other diseases classified elsewhere without behavioral disturbance Plan: Patient has a fairly advanced Alzheimer's dementia. Neurology Has made an adjustment in his medication. reports Alzheimer's symptoms have been stable. (2) Persistent atrial fibrillation: Code(s): I48.19 - Other persistent atrial fibrillation Plan: Patient anticoagulation has been transition to a DOAC. Has been stable without any overt signs of bleeding. (3) HLD (hyperlipidemia): Code(s): E78.5 - Hyperlipidemia, unspecified Qualifiers: Hyperlipidemia type: mixed hyperlipidemia Qualified Code(s): E78.2 - Mixed hyperlipidemia Plan: Patient continues on low-dose statin therapy without any side effect. Goal LDL to be below 130 (4) Obese: Code(s): E66.9 - Obesity, unspecified Qualifiers: Body mass index: BMI 30.0-30.9 Obesity classification: adult class 1 (BMI 30 - 34.9) Obesity type: due to excess calories Serious obesity comorbidity presence: without serious comorbidity Qualified Code(s): E66.09 - Other obesity due to excess calories; Z68.30 - Body mass index [BMI] 30.0-30.9, adult Plan: Patient does understand his BMI is over 30 and will work on better eating habits to reduce his weight Orders: Orders Lipid Panel 6 Months E78.2 - Mixed hyperlipidemia Complete Blood Count no Diff 6 Months I48.19 - Other persistent atrial fibrillation Comprehensive [place]. Panel Fast 6 Months I48.19 - Other persistent atrial fibrillation Hemoglobin A1c 6 Months R73.01 - Impaired fasting glucose Coding Level of Care Code Est Pt Level 4 (49030) Diagnoses Alzheimer's dementia without behavioral disturbance, unspecified timing of dementia onset G30.9; F02.80 Alzheimer's disease onset: unspecified onset Dementia behavioral disturbance: without behavioral disturbance Persistent atrial fibrillation I48.19 Mixed hyperlipidemia E78.2 Hyperlipidemia type: mixed hyperlipidemia Class 1 obesity due to excess calories without serious comorbidity with body mass index (BMI) of 30.0 to 30.9 in adult E66.09; Z68.30 Body mass index: BMI 30.0-30.9 Obesity classification: adult class 1 (BMI 30 - 34.9) Obesity type: due to excess calories Serious obesity comorbidity presence: without serious comorbidity
[2023-08-24 10:31] VITALS: BP 112/60; PULSE 65; O2SAT 97; BMI 31.4
== END 2023-08-24 10:56 | disposition home or self-care (01) ==
PROVIDERS: PCP Physician Assistant; Visit Provider Physician Assistant
DX: G30.9 Alzheimer's disease, unspecified (principal); F02.80 Dementia in other diseases classified elsewhere, unspecified severity, without behavioral disturbance, psychotic disturbance, mood disturbance, and anxiety; I48.19 Other persistent atrial fibrillation; E78.2 Mixed hyperlipidemia; E66.09 Other obesity due to excess calories; Z68.30 Body mass index [BMI] 30.0-30.9, adult
CPT/HCPCS: 99214

== ENCOUNTER 2024-02-03 10:19 | Outpatient (REF) | payer MEDICARE, OTHER, SELFPAY ==
[2024-02-03 11:12] LABS: Hematocrit 48.1 % (42.0-52.0); Hemoglobin 16.6 g/dl (14.0-18.0); Mean Corpuscular HGB Conc 34.5 g/dl (31.0-36.0); Mean Corpuscular Hemoglobin 33.4 pg (27.0-33.0); Mean Corpuscular Volume 96.8 fL (80.0-98.0); Platelet Count 217 X10*3/uL (160-400); Red Blood Count 4.97 X10*6/uL (4.60-5.80); Red Cell Distribution Width 15.3 % (11.0-16.0); White Blood Count 8.9 X10*3/uL (4.8-10.8)
[2024-02-03 11:20] LABS: Estimated Average Glucose 114 mg/dL; Hemoglobin A1c % 5.6 % (<6.0)
[2024-02-03 12:12] LABS: Alanine Aminotransferase 24 U/L (0-40); Albumin Level 3.9 g/dL (3.5-5.0); Alkaline Phosphatase 44 U/L (39-117); Anion Gap 12 (12-20); Aspartate Amino Transferase 25 U/L (5-37); Bilirubin Total 0.7 mg/dL (0.0-1.0); Blood Urea Nitrogen 21 mg/dL (9-16); Calcium 9.7 mg/dL (8.4-10.2); Carbon Dioxide 27 mmol/L (22-29); Chloride 106 mmol/L (96-108); Cholesterol 124 mg/dL (<200); Estimated Glomerular Filt Rate > 60; Glucose Fasting 103 mg/dL (60-99); HDL Cholesterol 41 mg/dL (>40); LDL Cholesterol Calculated 57 mg/dL (<100); Sodium 141 mmol/L (135-145); Total Protein 6.8 g/dL (6.5-8.0); Triglycerides 130 mg/dL (<150)
== END 2024-02-03 10:20 | disposition home or self-care (01) ==
LOC: HO.LAB 10:19
PROVIDERS: PCP Physician Assistant; Visit Provider Physician Assistant
DX: E78.2 Mixed hyperlipidemia (principal); I48.19 Other persistent atrial fibrillation; R73.01 Impaired fasting glucose
CPT/HCPCS: 36415; 80053; 80061; 83036; 85027

== ENCOUNTER 2024-02-22 11:06 | Outpatient (AMB) | payer MEDICARE, OTHER, SELFPAY ==
[2024-02-22 11:12] VITALS: BP 90/62; PULSE 51; O2SAT 95; BMI 31.4
--- NOTE | 2024-02-22 11:12 | A.OFFPC_ITS ---
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 Accompanied by: Spouse Allergies cat dander [CAT DANDER] Allergy (Unknown, Verified 02/22/24 11:35) COUGHING seasonal Allergy (Unknown, Uncoded 02/22/24 11:35) UNKNOWN Medication List - Last Reconciled 02/22/24 by Fabien Yang PA-C [Alzheimers monoclonolantibody intravenously every 2 weeks for Alzheimer's research ] donepezil 10 mg PO DAILY finasteride 5 mg PO DAILY gabapentin 300 mg PO BEDTIME mecobalamin (vitamin B12) 500 mcg sublingual DAILY memantine 28 mg PO DAILY 90 days [NEURO MAG PO] rivaroxaban (Xarelto) 20 mg PO DAILY simvastatin 20 mg PO BEDTIME 90 days Tobacco use date assessed: 02/22/24 Fall risk assessment: No Falls in past year Last assessed Fall Risk: 02/22/24 Dental Screening Dental Screen Date: 02/22/24 Did you have a dental visit in the last 12 months?: Yes Did you have a dental problem in the last 6 months where you did not have access to dental care?: No Was dental information given to patient?: Patient has dentist HPI f/u HLD/ AFIB HPI Details Patient is a 73-year-old male here ?today for follow-up visit..? Patient has a past medical history significant for persistent AFib, hyperlipidemia, BPH. .. Paroxysmal AFib:? Has been transition to Xarelto no overt signs of bleeding..? Denies any reports of chest discomfort, palpitations or shortness of breath. Noted low blood pressure reading today in office. Patient is completely asymptomatic. ? Obstructive sleep apnea:? patient uses CPAP nightly with Good affect. .. Alzheimer's disease:? Continues to follow a neurologist in [place]. Continues on a experimental treatment for Alzheimer's disease. At this time his makes all of his medical decisions. Continues on Namenda on denies a pill. reports his Alzheimer symptoms have been stable. Elevated fasting blood sugar: Noted elevated fasting blood sugar 103 on most recent labs. Will work on lifestyle modifications to reduce his blood sugars. Laboratory Tests 07/06/23 02/03/24 09:14 10:32 RBC 4.97 Creatinine 0.87 Fasting Glucose 103 H 103 H Hemoglobin A1c % 5.6 Cholesterol 124 REPLACED BY [facility] Medical History DVT (deep venous thrombosis) Pre-op evaluation Surgical History History of hernia repair History of colonoscopy History of surgery Hx of arthrodesis S/P tendon repair [place] filter in place History of vasectomy History of splenectomy Family History Father Heart problem Cardiac arrest Dementia Mother Hypertension Dementia Glaucoma Daughter In good health Daughter In good health Daughter In good health Son In good health Social History Housing: House Alcohol intake: current Alcohol intake frequency: holidays/special occasions only Alcohol type: beer Patient Tobacco Use Status: Never used Tobacco e-Cigarette/Vaping Use: Never Used Second Hand Smoke Exposure: No service: No Current occupational status: retired Cognitive needs: No Hearing needs: No Vision needs: No Questionnaire PHQ-9 Over the last 2 weeks, how often have you been bothered by any of the following problems? 1. Little interest or pleasure in doing things: not at all 2. Feeling down, depressed, or hopeless: not at all 3. Trouble falling or staying asleep, or sleeping too much: not at all 4. Feeling tired or having little energy: not at all 5. Poor appetite or overeating: not at all 6. Feeling bad about yourself - or that you are a failure or have let yourself or your family down: not at all 7. Trouble concentrating on things, such as reading the newspaper or watching television: not at all 8. Moving or speaking so slowly that other people could have noticed. Or the opposite - being so fidgety or restless that you have been moving around a lot more than usual: not at all 9. Thoughts that you would be better off or of hurting yourself in some way: not at all Total score: 0 Depression Screening Interpretation: Negative Depression Screening Done: Yes [id number] - PHQ-9 Billing: Yes Source: Developed by Drs. Negro Hunt, Arya Ramos and colleagues, with an educational randall from [facility]. Thrive Questionnaire Date Thrive assessed: 02/22/24 I am a: Patient What is your living situation today?: I have a steady place to live Within the past 12 months, did the food you bought not last and you didn't have the money to get more?: Never true Within the past 12 months, did you worry whether your food would run out before you got money to buy more?: Never true Do you have trouble paying for medicines?: No Do you have trouble getting transportation to medical appointments?: No Do you have trouble paying your heating and electricity bill?: No Do you have trouble taking care of your child, family member or friend?: No Do you have trouble with day-to-day activities such as bathing, preparing meals, shopping, managing finances, etc.?: No Are you currently unemployed and looking for a job?: No Are you interested in more education?: No Please select the resources that you would like help with: None Currently or been in a relationship where the following occur: no concerns reported THRIVE Score: 0 AUDIT C Alcohol Use Questionnaire (AUDIT-C) 1. How often do you have a drink containing alcohol?: Never 3. How often do you have six or more drinks on one occasion?: Never Total Score: 0 ROYER-7 AMB Questionnaire ROYER-7 Date ROYER - 7 assessed: 02/22/24 Feeling nervous, anxious, or on edge: 0 = Not at all Not being able to stop or control worryin = Not at all Worrying too much about different things: 0 = Not at all Trouble relaxin = Not at all Being so restless that it is hard to sit still: 0 = Not at all Becoming easily annoyed or irritable: 0 = Not at all Feeling afraid as if something awful might happen: 0 = Not at all Total ROYER-7 score (0-4 normal; 5-9 mild; 10-14 moderate; 15-21 severe): 0 Source: Developed by Yee Riddle Kurt Kroenke and colleagues, with an educational randall from [facility]. ROYER-7 Assessment Billing ROYER-7 Assessment Tool: ROYER-7 Assessment 24675 Review of Systems Const Denies headache(s) Eyes Denies loss of vision ENT Denies vertigo, Denies dizziness, Denies headache(s) and Denies sore throat Card Denies chest pain, Denies leg edema and Denies lightheadedness Resp Denies cough, Denies hemoptysis and Denies wheezing GI Denies abdominal pain, Denies melena, Denies constipation, Denies diarrhea and Denies vomiting Denies dysuria, Denies urinary frequency and Denies urinary urgency Musc Denies arthralgias, Denies joint swelling, Denies numbness and Denies tingling Neuro Denies Abnormal speech present, Denies behavioral changes, Denies vertigo, Denies dizziness, Denies headache(s), Denies loss of vision, Denies memory loss, Denies numbness and Denies tingling Psych Denies anxiety, Denies behavioral changes, Denies depression, Denies memory loss and Denies panic attacks Bret/Lymph Denies easy bleeding and Denies easy bruising Aller/Immun Denies wheezing Physical exam (Primary Care) Vital Signs: Last Vital Signs Pulse 51 02/22/24 11:12 BP 90/62 02/22/24 11:12 Pulse Ox 95 02/22/24 11:12 Oxygen Delivery Method Room Air 02/22/24 11:12 BMI result Body Mass Index 31.4 BMI Assessment/Plan discussion: High BMI High, discussed plan: lifestyle, weight reduction and dietary Tobacco/Smoking Status: Tobacco use Status Tobacco use date assessed 02/22/24 02/22/24 11:28 Patient Tobacco Use Status Never used Tobacco 02/22/24 11:12 e-Cigarette/Vaping Use Never Used 02/22/24 11:12 PHQ-9: PHQ-9 Score PHQ-9: Total score 0 02/22/24 11:37 Depression Screening Interpretation: Negative Thrive Assessment: Date of Thrive Assessment Date Thrive assessed 02/22/24 02/22/24 11:15 Currently or been in a relationship where the following occur: no concerns reported Const General: healthy appearing, no acute distress, alert and awake Nutritional Appearance: well nourished Orientation/consciousness: oriented to person, oriented to place and oriented to time HENMT Ears: TM's normal bilaterally General nose exam: Normal nasal mucous membranes and turbinates present Eyes Conjunctivae: conjunctivae normal Sclerae: sclerae normal Pupils: Equal, round and reactive pupils present Neck Neck: Yes no lymphadenopathy and Yes no JVD Thyroid: Thyroid normal Carotids: no bruits Resp Effort & Inspection: normal respiratory effort and not tachypneic Auscultation: no crackles, no rales, no rhonchi and no wheezes Cardio Rate: regular rate Rhythm: regular rhythm Heart sounds: no murmurs and normal S1 and S2 GI Palpation (GI): Soft to palpation, nontender, no hepatomegaly and no splenomegaly Auscultation: normal bowel sounds Skin General skin exam: no rashes or lesions noted and dry skin Neuro General: oriented to person, oriented to place and oriented to time Cranial nerves: Yes Equal, round and reactive pupils present Speech: No Abnormal speech present Gait exam (Neuro): Normal gait present Motor exam (neuro): no tremor noted Extrem Right upper extremity: full ROM Left upper extremity: full ROM Right lower extremity: full ROM; no edema Left lower extremity: full ROM; no edema Psych Mental Status: mental status grossly normal Speech and movement: Normal speech and movement present Affect: normal affect Attitude: cooperative Thought process: Normal thought process present Assessment and Plan Assessment & Plan (1) Alzheimer's dementia: Comment: with disinhibition Code(s): G30.9 - Alzheimer's disease, unspecified; F02.80 - Dementia in other diseases classified elsewhere, unspecified severity, without behavioral disturbance, psychotic disturbance, mood disturbance, and anxiety Qualifiers: Alzheimer's disease onset: unspecified onset Dementia behavioral d isturbance: without behavioral disturbance Qualified Code(s): G30.9 - Alzheimer's disease, unspecified; F02.80 - Dementia in other diseases classified elsewhere without behavioral disturbance Plan: Patient has a fairly advanced Alzheimer's dementia. Neurology Has made an adjustment in his medication. reports Alzheimer's symptoms have been stable. (2) Persistent atrial fibrillation: Code(s): I48.19 - Other persistent atrial fibrillation Plan: Patient anticoagulation has been transition to a DOAC. Has been stable without any overt signs of bleeding. He otherwise denies any dizziness, presyncopal episodes or heart palpitations. (3) HLD (hyperlipidemia): Code(s): E78.5 - Hyperlipidemia, unspecified Qualifiers: Hyperlipidemia type: mixed hyperlipidemia Qualified Code(s): E78.2 - Mixed hyperlipidemia Plan: Patient continues on low-dose statin therapy without any side effect. Goal LDL to be below 130 (4) Obese: Code(s): E66.9 - Obesity, unspecified Qualifiers: Body mass index: BMI 30.0-30.9 Obesity classification: adult class 1 (BMI 30 - 34.9) Obesity type: due to excess calories Serious obesity comorbidity presence: without serious comorbidity Qualified Code(s): E66.09 - Other obesity due to excess calories; Z68.30 - Body mass index [BMI] 30.0-30.9, adult Plan: Patient does understand his BMI is over 30 and will work on better eating habits to reduce his weight (5) Asthma: Code(s): J45.909 - Unspecified asthma, uncomplicated Qualifiers: Asthma complication type: uncomplicated Asthma persistence: intermittent Asthma severity: mild Qualified Code(s): J45.20 - Mild intermittent asthma, uncomplicated Plan: Reports having intermittent episodes of wheezing worse in the mornings and on exertion. Will supply patient with an albuterol inhaler to use on an as needed basis Orders: Orders Prostate Specific Antigen Scr 02/22/24 N40.0 - Benign prostatic hyperplasia w ithout lower urinary tract symptoms, Z12.5 - Encounter for screening for malignant neoplasm of prostate Lipid Panel 02/22/24 E78.2 - Mixed hyperlipidemia Complete Blood Count no Diff 02/22/24 I48.19 - Other persistent atrial fibrillation Comprehensive [place]. Panel Fast 02/22/24 E78.2 - Mixed hyperlipidemia Medications: New albuterol sulfate 90 mcg/actuation 1 inh inhalation QID PRN 8.5 grams 1RF shortness of breath or wheezing 30 days J45.20 - Mild intermittent asthma, uncomplicated Patient Instructions: Goals: LDL to remain below 130 Barriers: Adherence to physical activity and healthy eating habits. Coding Level of Care Code Est Pt Level 4 (45067) Diagnoses Alzheimer's dementia without behavioral disturbance, unspecified timing of dementia onset G30.9; F02.80 Alzheimer's disease onset: unspecified onset Dementia behavioral disturbance: without behavioral disturbance Persistent atrial fibrillation I48.19 Mixed hyperlipidemia E78.2 Hyperlipidemia type: mixed hyperlipidemia Class 1 obesity due to excess calories without serious comorbidity with body mass index (BMI) of 30.0 to 30.9 in adult E66.09; Z68.30 Body mass index: BMI 30.0-30.9 Obesity classification: adult class 1 (BMI 30 - 34.9) Obesity type: due to excess calories Serious obesity comorbidity presence: without serious comorbidity Mild intermittent asthma without complication J45.20 Asthma complication type: uncomplicated Asthma persistence: intermittent Asthma severity: mild Additional Codes ROYER-7 Assessment Billing - ROYER-7 Assessment Tool: ROYER-7 Assessment 18582 ([id number])
== END 2024-02-22 11:52 | disposition home or self-care (01) ==
PROVIDERS: PCP Physician Assistant; Visit Provider Physician Assistant
DX: G30.9 Alzheimer's disease, unspecified (principal); F02.80 Dementia in other diseases classified elsewhere, unspecified severity, without behavioral disturbance, psychotic disturbance, mood disturbance, and anxiety; I48.19 Other persistent atrial fibrillation; E78.2 Mixed hyperlipidemia; E66.09 Other obesity due to excess calories; Z68.30 Body mass index [BMI] 30.0-30.9, adult; J45.20 Mild intermittent asthma, uncomplicated
CPT/HCPCS: 99214

== ENCOUNTER 2024-08-10 08:25 | Outpatient (REF) | payer MEDICARE, OTHER, SELFPAY ==
[2024-08-10 09:11] LABS: Hematocrit 46.8 % (42.0-52.0); Hemoglobin 16.4 g/dl (14.0-18.0); Mean Corpuscular Hemoglobin 33.3 pg (27.0-33.0); Mean Corpuscular Volume 94.9 fL (80.0-98.0); Mean Platelet Volume 9.7 fL (9.4-12.4); Platelet Count 267 X10*3/uL (160-400); Red Blood Count 4.93 X10*6/uL (4.60-5.80); Red Cell Distribution Width 14.6 % (11.0-16.0); White Blood Count 9.7 X10*3/uL (4.8-10.8)
[2024-08-10 10:14] LABS: Alanine Aminotransferase 25 U/L (0-40); Albumin Level 3.8 g/dL (3.5-5.0); Alkaline Phosphatase 46 U/L (39-117); Anion Gap 11 (12-20); Aspartate Amino Transferase 29 U/L (5-37); Bilirubin Total 0.5 mg/dL (0.0-1.0); Blood Urea Nitrogen 18 mg/dL (9-16); Carbon Dioxide 29 mmol/L (22-29); Chloride 107 mmol/L (96-108); Cholesterol 131 mg/dL (<200); Estimated Glomerular Filt Rate > 60; Glucose Fasting 106 mg/dL (60-99); HDL Cholesterol 42 mg/dL (>40); LDL Cholesterol Calculated 69 mg/dL (<100); Sodium 142 mmol/L (135-145); Total Protein 6.8 g/dL (6.5-8.0); Triglycerides 103 mg/dL (<150)
[2024-08-10 10:39] LABS: Prostate Specific Antigen Scr 1.74 ng/mL (<0.05-4.0)
== END 2024-08-10 08:26 | disposition home or self-care (01) ==
LOC: HO.LAB 08:25
PROVIDERS: PCP Physician Assistant; Visit Provider Physician Assistant
DX: E78.2 Mixed hyperlipidemia (principal); N40.0 Benign prostatic hyperplasia without lower urinary tract symptoms; I48.19 Other persistent atrial fibrillation; Z12.5 Encounter for screening for malignant neoplasm of prostate
CPT/HCPCS: 36415; 80053; 80061; 84153; 85027

== ENCOUNTER 2024-08-21 12:18 | Outpatient (AMB) | payer MEDICARE, OTHER, SELFPAY ==
[2024-08-21 12:43] VITALS: BP 98/72; BMI 32.1
--- NOTE | 2024-08-21 12:43 | A.OFFVIS_ITS ---
Vital Signs 08/21/24 12:43 Height 5 ft 10 in Weight 224 lb BMI 32.1 BP 98/72 Blood Pressure Location Rt brachial Position Sitting Intake Visit Reasons: 1 yr f/u - LVM w/appt Intake Note: Patient presents for 1 year follow up Allergies cat dander [CAT DANDER] Allergy (Unknown, Verified 08/21/24 12:44) COUGHING seasonal Allergy (Unknown, Uncoded 08/21/24 12:44) UNKNOWN Medication List - Last Reconciled 08/21/24 by Reina Alejandre PA-C albuterol sulfate 90 mcg/actuation 1 inh inhalation QID PRN 30 days [Alzheimers monoclonolantibody intravenously every 2 weeks for Alzheimer's research ] donepezil 10 mg PO DAILY finasteride 5 mg PO DAILY gabapentin 300 mg PO BEDTIME mecobalamin (vitamin B12) 500 mcg sublingual DAILY memantine 28 mg PO DAILY 90 days [NEURO MAG PO] rivaroxaban (Xarelto) 20 mg PO DAILY simvastatin 20 mg PO BEDTIME 90 days HPI Comments Details: 72y/o male comes for further management of dementia ( Alzheimers ). He is part of a study in [place] for amyloid plaques. In 2017 - he had a study that documented AMyloid Plaques and he started the study in 2019( Iv Antibody treatment q 2 weeks ). According to his he started having short term memory issues over 10 years ago which progressed. He was evaluated at [facility] and was diagnosed with ALzheimers dementia. He has h/o VISHAL on CPAP. He is compliant with CPAP and sleeps good .He is followed up at Sleep Medicine services, [facility] home [facility]. His VISHAL compliance report today is > 4 hours 84% Autoset pressures [id number], AHI 1.1. According to his he has declined. He is independent in all his ADLs, needs some cuing by , for dressing and showering. He is also more disinhibited. Both his parents had dementia His father had it in his 60s. He has Raynauds, his notices his finger R. hand second digit blanching. He has urinary incontinence mainly overnight, waking daily with wet briefs. He is making more trips to the bathroom, frequency > urgency. [facility] Medical History DVT (deep venous thrombosis) Pre-op evaluation Surgical History History of hernia repair History of colonoscopy History of surgery Hx of arthrodesis S/P tendon repair [place] filter in place History of vasectomy History of splenectomy Family History Father Heart problem Cardiac arrest Dementia Mother Hypertension Dementia Glaucoma Daughter In good health Daughter In good health Daughter In good health Son In good health Social History Housing: House Alcohol intake: current Alcohol intake frequency: holidays/special occasions only Alcohol type: beer Patient Tobacco Use Status: Never used Tobacco e-Cigarette/Vaping Use: Never Used Second Hand Smoke Exposure: No service: No Current occupational status: retired Cognitive needs: No Hearing needs: No Vision needs: No Review of Systems ENT Reports Normal hearing present Neuro Reports Normal hearing present Physical Exam Vital Signs: Last Vital Signs BP 98/72 08/21/24 12:43 BMI result Body Mass Index 32.1 Const General: cooperative, comfortable and no acute distress Nutritional Appearance: obese Orientation/consciousness: patient oriented x3 HEENT Face and sinus: Yes normal facial exam and Yes face symmetric Eyes Pupils: Equal, round and reactive pupils present, Pupils normal by confrontation and Pupil accommodation reflex normal Neck Neck: Yes full ROM and Yes supple Resp Effort & Inspection: normal respiratory effort and able to speak in complete sentences Neuro General: patient oriented x3, gait normal, moves all extremities and Normal light touch and pain sensation Cranial nerves: Yes CN's II-XII intact bilaterally, Yes Facial sensation intact/muscles of mastication intact, Yes Equal, round and reactive pupils present, Yes Nystagmus not present, Yes Normal facial strength present, Yes Midline tongue present, Yes Normal hearing present, Yes Ability to bilaterally rotate head present and Yes Ability to bilaterally elevate shoulders present Motor exam (neuro): 5/5 motor strength present throughout and Normal motor muscle tone present throughout Deep tendon reflexes (DTR's): Right triceps reflex intensity grade: 2+, Left triceps reflex intensity grade: 2+, Rt Biceps (C5, C6): 2+, Left biceps reflex intensity grade: 2+, Right brachioradialis reflex intensity grade: 2+, Left br achioradialis reflex intensity grade: 2+, Right patellar reflex intensity grade: 2+ and Left patellar reflex intensity grade: 2+ Coordination: [id number] test normal Orientation What is the (year) (season) (date) (day) (month)?: season and month Where are we (state) (county) (town or city) (hospital) (floor)?: state and county Registration Name of 3 unrelated objects clearly and slowly, then ask patient to repeat all 3 of them. (1st repeat determines score. Make sure they can repeat all three): object 1, object 2 and object 3 Attention & Calculation (CHOOSE ONE) Ask pt to begin with 100 & count backward by 7. Stop after 5 repeats. If pt cannot ask them to spell the word WORLD backward.: 93, 86, 79, 72 and 65 Spell WORLD backwards (DLROW): 5 letters Language Show patient a wristwatch & ask what it is. Repeat for pencil.: watch and pencil Ask the patient to repeat the phrase 'No ifs, ands, or buts' after you.: correct Ask the patient to 'take a piece of paper with their right hand' 'fold paper in half' 'place paper on floor': take paper in right hand, fold paper in half and place paper on floor Print the sentence 'CLOSE YOUR EYES' on a piece. If patient actually closes eyes then score.: followed written direction Give patient a blank piece of paper & ask to write a sentence. Score if it contains a noun & verb.: sentence contains subject and verb Ask patient to copy figure of intersecting pentagons exactly. Score if all 10 angles & 2 intersects are included.: all 10 angles present & 2 are intersected Score Score: 26 Results Reviewed Results Reviewed: avoid fluids avoid intake of fluid wear thick pads at night Assessment & Plan Assessment & Plan (1) Alzheimer's dementia: Comment: with disinhibition Code(s): G30.9 - Alzheimer's disease, unspecified; F02.80 - Dementia in other diseases classified elsewhere, unspecified severity, without behavioral disturbance, psychotic disturbance, mood disturbance, and anxiety Category: Medical Qualifiers: Alzheimer's disease onset: unspecified onset Dementia behavioral disturbance: without behavioral disturbance Qualified Code(s): G30.9 - Alzheimer's disease, unspecified; F02.80 - Dementia in other diseases classified elsewhere without behavioral disturbance Plan PET Brain Beta Amyloid - Patient is in a controlled Alzheimers Dementia study w ith infusions every 2 weeks. VISHAL - Patient is compliant uses his device nightly. -Incontinence- Patient education, limiting fluid intake 3-4 hours prior to bed time, scheduled timed toileting breaks through the day. -Limit caffeine intake to no more than 1-2 beverages a day. -Exercise daily and routinely as tolerable, and monitor caloric intake to achieve and maintain BMI in the normal range. Orders: Orders PET Brain beta amyloid 08/21/24 F02.80 - Dementia in other diseases classified elsewhere, unspecified severity, without behavioral disturbance, psychotic disturbance, mood disturbance, and anxiety, G30.9 - Alzheimer's disease, unspecified Coding Level of Care Code Est Pt Level 4 (58113) Complex EM visit Add On G2211 Diagnoses Alzheimer's dementia without behavioral disturbance, unspecified timing of dementia onset G30.9; F02.80 Alzheimer's disease onset: unspecified onset Dementia behavioral disturbance: without behavioral disturbance
== END 2024-08-21 13:21 | disposition home or self-care (01) ==
PROVIDERS: PCP Physician Assistant; Visit Provider Physician Assistant Medical
DX: G30.9 Alzheimer's disease, unspecified (principal); F02.80 Dementia in other diseases classified elsewhere, unspecified severity, without behavioral disturbance, psychotic disturbance, mood disturbance, and anxiety
CPT/HCPCS: 99214; G2211

== ENCOUNTER → 2024-08-21 12:18 | Outpatient (BNVA) | payer MEDICARE, OTHER, SELFPAY | PROVIDERS: PCP Physician Assistant; Visit Provider Physician Assistant Medical | DX: G30.9 Alzheimer's disease, unspecified (principal); F02.80 Dementia in other diseases classified elsewhere, unspecified severity, without behavioral disturbance, psychotic disturbance, mood disturbance, and anxiety | CPT/HCPCS: 99212 ==

== ENCOUNTER 2024-08-28 11:27 | Outpatient (AMB) | payer MEDICARE, OTHER, SELFPAY ==
--- NOTE | 2024-08-28 11:25 | MHC.PC.OV ---
Vital Signs 08/28/24 11:46 Height 5 ft 10 in Weight 220 lb 2 oz BMI 31.6 BP 104/58 L Blood Pressure Location Lt brachial Position Sitting Pulse 60 Pulse Source Pulse Oximeter Pulse Oximetry (%) 96 Oxygen Delivery Method Room Air Intake Visit Reasons: PE Intake Note: Patient is here today for a physical. 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 Accompanied by: Spouse Allergies cat dander [CAT DANDER] Allergy (Unknown, Verified 08/28/24 11:47) COUGHING seasonal Allergy (Unknown, Uncoded 08/28/24 11:47) UNKNOWN Medication List - Last Reconciled 08/28/24 by Fabien Yang PA-C albuterol sulfate 90 mcg/actuation 1 inh inhalation QID PRN 30 days [Alzheimers monoclonolantibody intravenously every 2 weeks for Alzheimer's research ] donepezil 10 mg PO DAILY finasteride 5 mg PO DAILY mecobalamin (vitamin B12) 500 mcg sublingual DAILY memantine 28 mg PO DAILY 90 days [NEURO MAG PO] rivaroxaban (Xarelto) 20 mg PO DAILY simvastatin 20 mg PO BEDTIME 90 days Tobacco use date assessed: 02/22/24 Fall risk assessment: No Falls in past year Last assessed Fall Risk: 08/28/24 Dental Screening Dental Screen Date: 02/22/24 HPI PE HPI Details Patient is a 74-year-old male here ?today for routine annual physical? Patient has a past medical history significant for persistent AFib, hyperlipidemia, BPH. .. Paroxysmal AFib:? Has been transition to Xarelto no overt signs of bleeding..? Denies any reports of chest discomfort, palpitations or shortness of breath. Noted low blood pressure reading today in office. Patient is completely asymptomatic. ? Obstructive sleep apnea:? patient uses CPAP nightly with Good affect. .. Alzheimer's disease:? Continues to follow a neurologist in [place]. Continues on a experimental treatment for Alzheimer's disease which has been FDA approved recently. At this time his makes all of his medical decisions. reports his Alzheimer symptoms have been stable. Elevated fasting blood sugar: Noted elevated fasting blood sugar 103 on most recent labs. Will work on lifestyle modifications to reduce his blood sugars. Vaccine: Up-to-date with tetanus, pneumonia, COVID vaccines. Considering flu vaccine in near future Colorectal cancer screening: Up-to-date with colonoscopy Laboratory Tests 08/10/24 08:51 RBC 4.93 Creatinine 0.82 Fasting Glucose 106 H Cholesterol 131 PSA Screen 1.74 PFSH Medical History DVT (deep venous thrombosis) Pre-op evaluation Surgical History History of hernia repair History of colonoscopy History of surgery Hx of arthrodesis S/P tendon repair Prather filter in place History of vasectomy History of splenectomy Family History Father Heart problem Cardiac arrest Dementia Mother Hypertension Dementia Glaucoma Daughter In good health Daughter In good health Daughter In good health Son In good health Social History Housing: House Alcohol intake: current Alcohol intake frequency: holidays/special occasions only Alcohol type: beer Patient Tobacco Use Status: Never used Tobacco e-Cigarette/Vaping Use: Never Used Second Hand Smoke Exposure: No service: No Current occupational status: retired Cognitive needs: No Hearing needs: No Vision needs: No Questionnaire PHQ-9 Over the last 2 weeks, how often have you been bothered by any of the following problems? 1. Little interest or pleasure in doing things: not at all 2. Feeling down, depressed, or hopeless: not at all 3. Trouble falling or staying asleep, or sleeping too much: not at all 4. Feeling tired or having little energy: not at all 5. Poor appetite or overeating: not at all 6. Feeling bad about yourself - or that you are a failure or have let yourself or your family down: not at all 7. Trouble concentrating on things, such as reading the newspaper or watching television: not at all 8. Moving or speaking so slowly that other people could have noticed. Or the opposite - being so fidgety or restless that you have been moving around a lot more than usual: not at all 9. Thoughts that you would be better off or of hurting yourself in some way: not at all Total score: 0 Depression Screening Interpretation: Negative Depression Screening Done: Yes 16812 - PHQ-9 Billing: Yes Source: Developed by Drs. Negro Hunt, Yee Castellano, Arya Singh and colleagues, with an educational randall from [employer]. Thrive Questionnaire Date Thrive assessed: 08/28/24 I am a: Patient What is your living situation today?: I have a steady place to live Within the past 12 months, did the food you bought not last and you didn't have the money to get more?: Never true Within the past 12 months, did you worry whether your food would run out before you got money to buy more?: Never true Do you have trouble paying for medicines?: No Do you have trouble getting transportation to medical appointments?: No Do you have trouble paying your heating and electricity bill?: No Do you have trouble taking care of your child, family member or friend?: No Do you have trouble with day-to-day activities such as bathing, preparing meals, shopping, managing finances, etc.?: No Are you currently unemployed and looking for a job?: No Are you interested in more education?: No Please select the resources that you would like help with: None THRIVE Score: 0 ROYER-7 AMB Questionnaire ROYER-7 Date ROYER - 7 assessed: 02/22/24 Source: Developed by Drs. Negro Hunt, Yee Castellano, Arya Singh and colleagues, with an educational randall from [employer]. Review of Systems Const Denies body aches, Denies chills, Denies excessive sweating, Denies fatigue, Denies fever(s) and Denies headache(s) Eyes Denies blurry vision ENT Denies dysphagia, Denies vertigo, Denies dizziness, Denies headache(s), Denies hearing loss and Denies tinnitus Card Denies chest pain, Denies chest pain with activity, Denies syncope, Denies irregular heart rhythm and Denies dyspnea Resp Denies chest congestion, Denies cough, Denies hemoptysis, Denies dyspnea and Denies wheezing GI Denies abdominal pain, Denies melena, Denies hematochezia, Denies coffee ground emesis, Denies dysphagia, Denies diarrhea, Denies nausea and Denies vomiting Denies difficulty urinating, Denies dysuria, Denies urinary frequency, Denies urinary hesitancy and Denies urinary urgency Musc Denies arthralgias, Denies limited range of motion, Denies muscle cramps and Denies muscle weakness Skin/Breast Denies rash and Denies skin ulcer Neuro Denies Abnormal speech present, Denies confusion, Denies vertigo, Denies dizziness, Denies syncope, Denies headache(s), Denies memory loss and Denies seizure-like activity Psych Denies anxiety, Denies confusion, Denies depression, Denies memory loss, Denies panic attacks and Denies paranoia Endo Denies excessive sweating, Denies fatigue, Denies flushing, Denies polydipsia and Denies polyuria Aller/Immun Denies wheezing Physical exam (Primary Care) Vital Signs: Last Vital Signs Pulse 60 08/28/24 11:46 BP 104/58 L 08/28/24 11:46 Pulse Ox 96 08/28/24 11:46 Oxygen Delivery Method Room Air 08/28/24 11:46 BMI result Body Mass Index 31.6 Tobacco/Smoking Status: Tobacco use Status Tobacco use date assessed 02/22/24 08/28/24 11:25 Patient Tobacco Use Status Never used Tobacco 08/28/24 11:25 e-Cigarette/Vaping Use Never Used 08/28/24 11:25 PHQ-9: PHQ-9 Score PHQ-9: Total score 0 08/28/24 11:51 Depression Screening Interpretation: Negative Thrive Assessment: Date of Thrive Assessment Date Thrive assessed 08/28/24 08/28/24 11:25 Const General: cooperative, comfortable, no acute distress, alert and awake; No confusion Orientation/consciousness: oriented to person, oriented to place, patient oriented x3 and No confusion HENMT Head: Yes normocephalic Ears: external ears normal and TM's normal bilaterally Face and sinus: No sinus tenderness Mouth: Normal oral and palatal mucosa present and tongue normal Teeth and gingiva: dentition normal and gingiva normal Throat: Yes posterior oropharynx normal, Yes tonsils normal and Yes uvula midline Eyes Conjunctivae: conjunctivae normal Sclerae: sclerae normal Pupils: Equal, round and reactive pupils present EOM: EOMs intact bilaterally Direct Ophthalmoscopy: No no photophobia Neck Neck: Yes no lymphadenopathy, No tender and Yes no JVD Thyroid: Thyroid normal Carotids: no bruits Chest Chest palpation & inspection: no tenderness Resp Effort & Inspection: normal respiratory effort, no audible wheezes, not labored and no stridor Auscultation: no crackles, no rales, no rhonchi and no wheezes Cardio Jugular venous distension: no JVD Rate: regular rate, not bradycardic and not tachycardic Rhythm: regular rhythm Bruits: no carotid bruits Peripheral pulses: Peripheral pulses 2+ throughout GI Inspection: Yes normal to inspection, No abdominal wall ecchymosis and No visible herniation Palpation (GI): Soft to palpation, nontender, no guarding, not rigid and No hepatosplenomegaly present Auscultation: normoactive bowel sounds General: Yes no CVA tenderness Back/Spine/Pelvis Back: no CVA tenderness and No back tenderness Cervical Spine: cervical ROM normal Thoracic/Lumbar Spine: thoracic and lumbar spine normal to inspection, straight leg raise negative bilaterally, No thoraco-lumbar ROM limited and No lumbar spinal tenderness Skin Lesions: no lesions Rashes: no rashes Wounds: no wounds Neuro General: oriented to person, oriented to place, patient oriented x3, CN's II-XI intact bilaterally and No confusion Cranial nerves: Yes Equal, round and reactive pupils present and Yes Normal accommodation reflex present Cognition (Neuro): normal cognition Speech: No Abnormal speech present Gait exam (Neuro): Normal gait present Motor exam (neuro): 5/5 motor strength present throughout Extrem Right upper extremity: full ROM; no cyanosis Left upper extremity: full ROM; no cyanosis Right lower extremity: no edema Left lower extremity: no edema Psych Appearance: grossly normal Mental Status: mental status grossly normal Affect: normal affect Attitude: cooperative Thought process: Normal thought process present Office Procedures Flu Questionnaire Does the patient have a severe egg allergy?: No Immunizations Fluarix Triv [id number] (PF) 45 mcg (15 mcg x 3)/0.5 mL IM syringe Performing Provider: Fabien Yang PA-C Performing [place] [facility] Documented (not given) by: THAD Brown on 08/28/24 11:47 Reason Not Given: Patient Refused Coding Level of Care Code Est Pt Prev Care >65y(03514) Diagnoses Adult general medical exam Z00.00 Obstructive sleep apnea G47.33 Mixed hyperlipidemia E78.2 Hyperlipidemia type: mixed hyperlipidemia Persistent atrial fibrillation I48.19 Elevated fasting glucose R73.01 Additional Codes PHQ-9 - 16827 - PHQ-9 Billing: Yes ([id number]) Assessment & Plan Assessment & Plan (1) Adult general medical exam: Code(s): Z00.00 - Encounter for general adult medical examination without abnormal findings Category: Medical Plan: As per HPI (2) Obstructive sleep apnea: Code(s): G47.33 - Obstructive sleep apnea (adult) (pediatric) Category: Medical Plan: Patient using CPAP machine on a nightly basis with good effect. (3) HLD (hyperlipidemia): Code(s): E78.5 - Hyperlipidemia, unspecified Category: Medical Qualifiers: Hyperlipidemia type: mixed hyperlipidemia Qualified Code(s): E78.2 - Mixed hyperlipidemia Plan: Patient's most recent lipid panel showing excellent control of his total cholesterol and LDL. Will continue current dose of simvastatin 20 mg. Goal LDL is to remain below 130 (4) Persistent atrial fibrillation: Code(s): I48.19 - Other persistent atrial fibrillation Category: Medical Plan: Patient denies any dizziness, heart palpitations or chest pain. He continues with the use of Xarelto for his anticoagulation without any signs of overt bleeding. (5) Elevated fasting glucose: Code(s): R73.01 - Impaired fasting glucose Category: Medical Plan: Patient's fasting blood sugar remains slightly elevated. Will work on low carbohydrate diet. Orders: Orders Complete Blood Count no Diff 08/28/24 I48.19 - Other persistent atrial fibrillation Comprehensive [place]. Panel Fast 08/28/24 E78.2 - Mixed hyperlipidemia Influenza [id number] Immunization 08/28/24 Z23 - Encounter for immunization Lipid Panel 08/28/24 E78.2 - Mixed hyperlipidemia Prostate Specific Antigen Scr 08/28/24 E78.2 - Mixed hyperlipidemia, Z12.5 - Encounter for screening for malignant neoplasm of prostate
[2024-08-28 11:46] VITALS: BP 104/58; PULSE 60; O2SAT 96; BMI 31.6
== END 2024-08-28 12:04 | disposition home or self-care (01) ==
PROVIDERS: PCP Physician Assistant; Visit Provider Physician Assistant
DX: Z00.00 Encounter for general adult medical examination without abnormal findings (principal); G47.33 Obstructive sleep apnea (adult) (pediatric); E78.2 Mixed hyperlipidemia; I48.19 Other persistent atrial fibrillation; R73.01 Impaired fasting glucose

== ENCOUNTER → 2024-08-28 11:27 | Outpatient (BNVA) | payer MEDICARE, OTHER, SELFPAY | PROVIDERS: PCP Physician Assistant; Visit Provider Physician Assistant | DX: Z00.00 Encounter for general adult medical examination without abnormal findings (principal); E78.2 Mixed hyperlipidemia; G47.33 Obstructive sleep apnea (adult) (pediatric); I48.19 Other persistent atrial fibrillation; R73.01 Impaired fasting glucose | CPT/HCPCS: 90471; 96127; 99397 ==

== ENCOUNTER 2024-10-03 09:47 | Outpatient (REF) | payer MEDICARE, OTHER, SELFPAY ==
[2024-10-03 10:56] LABS: Hematocrit 47.6 % (42.0-52.0); Hemoglobin 16.7 g/dl (14.0-18.0); Mean Corpuscular HGB Conc 35.1 g/dl (31.0-36.0); Mean Corpuscular Hemoglobin 33.6 pg (27.0-33.0); Mean Corpuscular Volume 95.8 fL (80.0-98.0); Mean Platelet Volume 10.4 fL (9.4-12.4); Platelet Count 195 X10*3/uL (160-400); Red Blood Count 4.97 X10*6/uL (4.60-5.80); Red Cell Distribution Width 15.5 % (11.0-16.0); White Blood Count 8.5 X10*3/uL (4.8-10.8)
[2024-10-03 11:48] LABS: Alanine Aminotransferase 20 U/L (0-40); Albumin Level 3.8 g/dL (3.5-5.0); Alkaline Phosphatase 46 U/L (39-117); Anion Gap 10 (12-20); Aspartate Amino Transferase 26 U/L (5-37); Blood Urea Nitrogen 21 mg/dL (9-16); Calcium 9.1 mg/dL (8.4-10.2); Carbon Dioxide 28 mmol/L (22-29); Chloride 109 mmol/L (96-108); Cholesterol 138 mg/dL (<200); Estimated Glomerular Filt Rate > 60; Glucose Fasting 107 mg/dL (60-99); HDL Cholesterol 47 mg/dL (>40); LDL Cholesterol Calculated 69 mg/dL (<100); Potassium 4.7 mmol/L (3.3-5.1); Sodium 142 mmol/L (135-145); Total Protein 6.7 g/dL (6.5-8.0); Triglycerides 114 mg/dL (<150)
[2024-10-03 12:00] LABS: Prostate Specific Antigen Scr 2.09 ng/mL (<0.05-4.0)
[2024-10-03 12:09] LABS: TSH reflex Free T4 2.61 uIU/mL (0.32-4.0)
[2024-10-03 12:12] LABS: Vitamin B12 953 pg/mL (200-900)
== END 2024-10-03 09:48 | disposition home or self-care (01) ==
LOC: HO.LAB 09:47
PROVIDERS: PCP Physician Assistant; Referring Provider Psychiatry & Neurology Neurology; Visit Provider Physician Assistant Medical
DX: G30.9 Alzheimer's disease, unspecified (principal); F02.80 Dementia in other diseases classified elsewhere, unspecified severity, without behavioral disturbance, psychotic disturbance, mood disturbance, and anxiety; F09 Unspecified mental disorder due to known physiological condition; E78.2 Mixed hyperlipidemia; Z12.5 Encounter for screening for malignant neoplasm of prostate; I48.19 Other persistent atrial fibrillation
CPT/HCPCS: 36415; 80053; 80061; 82607; 82746; 84153; 84443; 85027

== ENCOUNTER 2024-11-29 16:11 | Outpatient (REF) | payer MEDICARE, OTHER, SELFPAY ==
--- NOTE | ~2024-11-29 | MR_ITS ---
CLINICAL HISTORY: F02.80 - Dementia in other diseases classified elsewhere, unspecified se... MR Brain without gadolinium Comparison: CT/SR - BRAIN WO IV CONTRAST [id number] - 11/09/16 18:03 EST , brain MRI report dated 03/13/2024, no images provided. Findings: No restricted diffusion. No intracranial mass or hemorrhage. No evidence of acute or chronic stroke. Moderately diffuse cerebral atrophy, most severe in the anterior temporal lobes. There are a few small T2 and FLAIR hyperintensities in the periventricular and subcortical white matter consistent with mild chronic small-vessel ischemic gliosis. No midline shift. No hydrocephalus. Vascular flow voids are intact. Orbital contents are unremarkable. Mucosal thickening of the right ethmoid and maxillary sinuses. No focal bone lesion. IMPRESSION: 1. Moderately diffuse cerebral atrophy with most prominent disease in the anterior temporal lobes, slightly progressed in comparison to head CT from 2016, but likely similar in comparison to MRI report from 2023. This document has been electronically signed by: Manolo Jackson MD on 11/29/2024 18:53:33
--- OUTSIDE RECORDS SUMMARY | 2024-11-29 19:39 | XMS_ITS | Encounter Summary ---
Author Organization [facility] Address [address] [place] [id number] Care Team Providers Care Washer Engineer Name Role Phone No, Pcp (Do Not Change Name) Primary Care Provid er Unavailable Encounter Details Date Type Department Care Team ([facility] st Contact Info) Description 01/17/2021 Scanned Document INTERFACE DEFAULT [address] [place] [id number] System, Provider Not In Social History Tobacco Use Types Packs/Day Years Used Date Smoking Tobacco: Never Smokeless Tobacco: Never Alcohol Use Standard Drinks/Week Comments Yes 7 (1 standard drink = 0.6 oz pur e alcohol) One a day Sex and Gender Information Value Date Recorded Sex Assigned at Not on file Legal Sex Male 11:14 AM EST Gender Identity Not on file Sexual Orientation Not on file COVID-19 Exposure Response Date Recorded In the last month, have you been in contact with someone who was confirmed or suspected to have Coronavirus / COVID-19? No / Unsure 01/17/2021 9:37 AM EDT documented as of this encounter Plan of Treatment Not on file documented as of this encounter Visit Diagnoses Not on filedocumented in this encounter Care Teams Washer Engineer Relationship Specialty Start Date End Date No, Pcp (Do Not Change Name) PCP - General 12/21/19 documented as of this encounter
== END 2024-11-29 16:12 | disposition home or self-care (01) ==
LOC: HO.MRI 16:11
PROVIDERS: PCP Physician Assistant; Visit Provider Physician Assistant Medical
DX: G30.9 Alzheimer's disease, unspecified (principal); F02.80 Dementia in other diseases classified elsewhere, unspecified severity, without behavioral disturbance, psychotic disturbance, mood disturbance, and anxiety
CPT/HCPCS: 70551

== ENCOUNTER → 2024-11-29 16:11 | Outpatient (BNV) | payer MEDICARE, OTHER, SELFPAY | PROVIDERS: PCP Physician Assistant; Visit Provider Radiology Diagnostic Radiology | DX: G31.9 Degenerative disease of nervous system, unspecified (principal) | CPT/HCPCS: 70551 ==

== ENCOUNTER 2025-01-03 13:00 | Outpatient (RCR) | payer MEDICARE, OTHER, SELFPAY ==
--- NOTE | 2024-11-06 12:25 | MHC.PT.EP ---
[facility] [place] [facility] [place] [facility] [place] [facility] [address] Janeen Koenig [address] [phone] F: [phone] F: [phone] F: [phone] F: [phone] Physical Therapy Plan of Care Date of Evaluation: 11/06/24 Date of Surgery: Diagnosis: other abnormalities of gait and mobility Assessment: Patient is a 74 year old R handed male who presents with s/s consistent with other abnormalities of gait and mobility, most notably a shuffling gait pattern. He is retired from a career in teaching. Patient past medical history includes alzheimers, quad tendon repair and ankle arthrodesis. Current impairments include pain, balance, ROM, strength, activity tolerance and functional mobility. Functional limitations include decreased ability to transfer, stand, walk, negotiate stairs and be active in the community. Patient is motivated with good rehab potential. Skilled PT will address impairments and functional limitations in order to achieve goals. Frequency and Duration: The patient will be seen 2x/week for 5 weeks Short Term Goals: I with HEP -2 weeks SLB > 5 seconds b/l - 3 weeks LE strength 4+/5 grossly - 3 weeks Care Home Goals: DGI 24/24 - 5 weeks SLB > 10 seconds b/l - 5 weeks LEFS 48/80 - 5 weeks Treatment Plan: Modalities to reduce pain, spasms and effusion. Manual therapy to restore motion and function. Therapeutic exercise to improve strength and flexibility. Neuromuscular re-education for posture and balance. Therapeutic activities to return to functional activities of daily living. Electronically signed by: Selvin Hobbs PT Please sign and return to therapist. Thank you for your referral.
--- NOTE | 2025-04-13 09:23 | MHC.PT.DC ---
[facility] [place] [facility] [place] [facility] [place] [facility] [address] Janeen Koenig [address] [phone] F: [phone] F: [phone] F: [phone] F: [phone] Physical Therapy Discharge Report Diagnosis: other abnormalities of gait and mobility Date of Surgery: Date of Evaluation: 11/06/24 Date of Discharge: Treatments to Date: 8 Cancellations to Date: No Shows to Date: Discharge Status: Improved Function Independent with HEP Discharge Summary: 01/03/25: pt has been feeling good overall. motivated throughout. I with HEP. SLB 5 seconds b/l. DGI . Pt is motivated to continue on his own. He has updated HEP and will d/c to HEP at this time. 12/20/24: pt progressing well. improved balance and strength since start of PT. continue to progress as tolerated and d/c to HEP [place]. 12/06/24: pt progressed with strength/resistance ex. fatigued by end of program. continue to progress as tolerated. 11/29/24: pt progressing slowly, improved carryover. we have been able to progress weights with ex with no adverse reactions. reduced HH assist used today. 11/21/24: pt with no pain. notes he needs to do a better job with his home exercises. progressed weight with retro/lat walking. continue to progress as tolerated. 11/15/24: pt progressing well. needs redirected at times and guarded often as carryover is lacking regarding exercise and safety. 11/13/24: pt progressing well with skilled PT. no adverse reactions. hep issued. Patient is a 74 year old R handed male who presents with s/s consistent with other abnormalities of gait and mobility, most notably a shuffling gait pattern. He is retired from a career in teaching. Patient past medical history includes alzheimers, quad tendon repair and ankle arthrodesis. Current impairments include pain, balance, ROM, strength, activity tolerance and functional mobility. Functional limitations include decreased ability to transfer, stand, walk, negotiate stairs and be active in the community. Patient is motivated with good rehab potential. Skilled PT will address impairments and functional limitations in order to achieve goals. Electronically signed by: Selvin Hobbs PT Please sign and return to therapist. Thank you for your referral.
== END 2025-04-13 09:23 | disposition home or self-care (01) ==
LOC: HO.PTCHIC 13:00
PROVIDERS: PCP Physician Assistant; Visit Provider Physician Assistant Medical
DX: R26.89 Other abnormalities of gait and mobility (principal)
CPT/HCPCS: 97110; 97112; 97163

== ENCOUNTER 2025-02-01 11:26 | Outpatient (REF) | payer MEDICARE, OTHER, SELFPAY ==
[2025-02-01 14:18] LABS: Hematocrit 48.9 % (42.0-52.0); Hemoglobin 17.3 g/dl (14.0-18.0); Mean Corpuscular HGB Conc 35.4 g/dl (31.0-36.0); Mean Corpuscular Volume 96.1 fL (80.0-98.0); Platelet Count 203 X10*3/uL (160-400); Red Blood Count 5.09 X10*6/uL (4.60-5.80); Red Cell Distribution Width 15.4 % (11.0-16.0); White Blood Count 7.6 X10*3/uL (4.8-10.8)
[2025-02-01 14:33] LABS: Alanine Aminotransferase 19 U/L (0-40); Albumin Level 3.9 g/dL (3.5-5.0); Alkaline Phosphatase 48 U/L (39-117); Anion Gap 10 (12-20); Aspartate Amino Transferase 27 U/L (5-37); Bilirubin Total 0.8 mg/dL (0.0-1.0); Blood Urea Nitrogen 32 mg/dL (9-16); Calcium 8.9 mg/dL (8.4-10.2); Carbon Dioxide 27 mmol/L (22-29); Chloride 108 mmol/L (96-108); Cholesterol 124 mg/dL (<200); Estimated Glomerular Filt Rate > 60; Glucose Fasting 105 mg/dL (60-99); HDL Cholesterol 41 mg/dL (>40); LDL Cholesterol Calculated 66 mg/dL (<100); Sodium 141 mmol/L (135-145); Total Protein 6.8 g/dL (6.5-8.0); Triglycerides 85 mg/dL (<150)
== END 2025-02-01 11:27 | disposition home or self-care (01) ==
LOC: HO.10HDL 11:26
PROVIDERS: Visit Provider Physician Assistant
DX: I48.19 Other persistent atrial fibrillation (principal); E78.2 Mixed hyperlipidemia
CPT/HCPCS: 36415; 80053; 80061; 85027

== ENCOUNTER 2025-02-27 08:17 | Outpatient (AMB) | payer MEDICARE, OTHER, SELFPAY ==
[2025-02-27 08:22] VITALS: BP 108/62; PULSE 69; O2SAT 96; BMI 31.3
--- NOTE | 2025-02-27 08:22 | A.OFFPC_ITS ---
Vital Signs 02/27/25 08:22 Height 5 ft 10 in Weight 218 lb 8 oz BMI 31.3 BP 108/62 Blood Pressure Location Lt brachial Position Sitting Pulse 69 Pulse Source Pulse Oximeter Pulse Oximetry (%) 96 Oxygen Delivery Method Room Air Intake Visit Reasons: f/u HLD/ IGM [place] Production Line Required: No Accompanied by: Self / Same As Patient Allergies cat dander [CAT DANDER] Allergy (Unknown, Verified 02/27/25 08:31) COUGHING seasonal Allergy (Unknown, Uncoded 02/27/25 08:31) UNKNOWN Medication List - Last Reconciled 02/27/25 by Fabien Yang PA-C albuterol sulfate 90 mcg/actuation 1 inh inhalation QID PRN 30 days [Alzheimers monoclonolantibody intravenously every 2 weeks for Alzheimer's research ] donepezil 10 mg PO DAILY finasteride 5 mg PO DAILY mecobalamin (vitamin B12) 500 mcg sublingual DAILY memantine 28 mg PO DAILY 90 days [NEURO MAG PO] rivaroxaban (Xarelto) 20 mg PO DAILY simvastatin 20 mg PO BEDTIME 90 days Tobacco use date assessed: 02/27/25 Fall risk assessment: No Falls in past year Last assessed Fall Risk: 02/27/25 Dental Screening Dental Screen Date: 02/27/25 Did you have a dental visit in the last 12 months?: No Did you have a dental problem in the last 6 months where you did not have access to dental care?: No Was dental information given to patient?: Patient has dentist HPI f/u HLD/ IGM HPI Details Patient is a 74-year-old male here ?today for a follow-up visit.? Patient has a past medical history significant for persistent AFib, hyperlipidemia, BPH. .. Paroxysmal AFib:? Has been transition to Xarelto no overt signs of bleeding..? Denies any reports of chest discomfort, palpitations or shortness of breath. Noted low blood pressure reading today in office. Patient is completely asymptomatic. ? Obstructive sleep apnea:? patient uses CPAP nightly with Good affect. .. Alzheimer's disease:? Continues to follow a neurologist . Continues on a experimental treatment for Alzheimer's disease which has been FDA approved recently. At this time his makes all of his medical decisions. His Alzheimer's has not seem to progress much as per . He recently had PET scan which did not show evidence of amyloid packs though will follow up with neurologist on interpretation in comparison to initial PET scan.. Elevated fasting blood sugar: Noted elevated fasting blood sugar 105 on most recent labs. Will work on lifestyle modifications to reduce his blood sugars. Laboratory Tests 10/03/24 02/01/25 10:32 11:30 RBC 5.09 Creatinine 0.84 Fasting Glucose 107 H 105 H Cholesterol 138 124 [facility] Medical History DVT (deep venous thrombosis) Pre-op evaluation Surgical History History of hernia repair History of colonoscopy History of surgery Hx of arthrodesis S/P tendon repair [place] filter in place History of vasectomy History of splenectomy Family History Father Heart problem Cardiac arrest Dementia Mother Hypertension Dementia Glaucoma Daughter In good health Daughter In good health Daughter In good health Son In good health Social History Housing: House Alcohol intake: current Alcohol intake frequency: holidays/special occasions only Alcohol type: beer Patient Tobacco Use Status: Never used Tobacco e-Cigarette/Vaping Use: Never Used Second Hand Smoke Exposure: No service: No Current occupational status: retired Cognitive needs: No Hearing needs: No Vision needs: No Questionnaire PHQ-9 Over the last 2 weeks, how often have you been bothered by any of the following problems? 1. Little interest or pleasure in doing things: not at all 2. Feeling down, depressed, or hopeless: not at all 3. Trouble falling or staying asleep, or sleeping too much: not at all 4. Feeling tired or having little energy: several days 5. Poor appetite or overeating: not at all 6. Feeling bad about yourself - or that you are a failure or have let yourself or your family down: not at all 7. Trouble concentrating on things, such as reading the newspaper or watching television: nearly every day 8. Moving or speaking so slowly that other people could have noticed. Or the opposite - being so fidgety or restless that you have been moving around a lot more than usual: not at all 9. Thoughts that you would be better off or of hurting yourself in some way: not at all Total score: 4 Depression Screening Interpretation: Positive Depression Screening Follow-up: Existing condition Depression Screening Done: Yes 85765 - PHQ-9 Billing: Yes Source: Developed by Drs. Negro Hunt, Yee Castellano, Arya Singh and colleagues, with an educational randall from [employer]. Thrive Questionnaire Date Thrive assessed: 02/27/25 I am a: Parent/Caregiver What is your living situation today?: I have a steady place to live Within the past 12 months, did the food you bought not last and you didn't have the money to get more?: Never true Within the past 12 months, did you worry whether your food would run out before you got money to buy more?: Never true Do you have trouble paying for medicines?: No Do you have trouble getting transportation to medical appointments?: No Do you have trouble paying your heating and electricity bill?: No Do you have trouble taking care of your child, family member or friend?: No Do you have trouble with day-to-day activities such as bathing, preparing meals, shopping, managing finances, etc.?: Yes Are you currently unemployed and looking for a job?: No Are you interested in more education?: No Please select the resources that you would like help with: Care for elder or disabled Currently or been in a relationship where the following occur: No concerns reported THRIVE Score: 0 AUDIT C Alcohol Use Questionnaire (AUDIT-C) 1. How often do you have a drink containing alcohol?: Monthly or less 2. How many drinks containing alcohol do you have on a typical day when you are drinking?: 1 or 2 3. How often do you have six or more drinks on one occasion?: Never Total Score: 1 ROY[place]-7 AMB Questionnaire ROYER-7 Date ROYER - 7 assessed: 02/27/25 Feeling nervous, anxious, or on edge: 0 = Not at all Not being able to stop or control worryin = Not at all Worrying too much about different things: 0 = Not at all Trouble relaxin = Not at all Being so restless that it is hard to sit still: 0 = Not at all Becoming easily annoyed or irritable: 0 = Not at all Feeling afraid as if something awful might happen: 0 = Not at all Total ROYER-7 score (0-4 normal; 5-9 mild; 10-14 moderate; 15-21 severe): 0 Source: Developed by Drs. Negro Hunt, Yee Castellano, Arya Singh and colleagues, with an educational randall from [employer]. ROYER-7 Assessment Billing ROYER-7 Assessment Tool: ROYER-7 Assessment 27470 Review of Systems Const Denies headache(s) Eyes Denies loss of vision ENT Denies vertigo, Denies dizziness, Denies headache(s) and Denies sore throat Card Denies chest pain, Denies leg edema and Denies lightheadedness Resp Denies cough, Denies hemoptysis and Denies wheezing GI Denies abdominal pain, Denies melena, Denies constipation, Denies diarrhea and Denies vomiting Denies dysuria, Denies urinary frequency and Denies urinary urgency Musc Denies arthralgias, Denies joint swelling, Denies numbness and Denies tingling Neuro Denies Abnormal speech present, Denies behavioral changes, Denies vertigo, Denies dizziness, Denies headache(s), Denies loss of vision, Denies memory loss, Denies numbness and Denies tingling Psych Denies anxiety, Denies behavioral changes, Denies depression, Denies memory loss and Denies panic attacks Bret/Lymph Denies easy bleeding and Denies easy bruising Aller/Immun Denies wheezing Physical exam (Primary Care) Vital Signs: Last Vital Signs Pulse 69 02/27/25 08:22 BP 108/62 02/27/25 08:22 Pulse Ox 96 02/27/25 08:22 Oxygen Delivery Method Room Air 02/27/25 08:22 BMI result Body Mass Index 31.3 Tobacco/Smoking Status: Tobacco use Status Tobacco use date assessed 02/27/25 02/27/25 08:28 Patient Tobacco Use Status Never used Tobacco 02/27/25 08:28 e-Cigarette/Vaping Use Never Used 02/27/25 08:28 PHQ-9: PHQ-9 Score PHQ-9: Total score 4 02/27/25 08:33 Depression Screening Interpretation: Positive Depression Screening Follow-up: Existing condition Thrive Assessment: Date of Thrive Assessment Date Thrive assessed 02/27/25 02/27/25 08:28 Currently or been in a relationship where the following occur: No concerns reported Const General: healthy appearing, no acute distress, alert and awake Nutritional Appearance: well nourished Orientation/consciousness: oriented to person, oriented to place and oriented to time HENMT Ears: TM's normal bilaterally General nose exam: Normal nasal mucous membranes and turbinates present Eyes Conjunctivae: conjunctivae normal Sclerae: sclerae normal Pupils: Equal, round and reactive pupils present Neck Neck: Yes no lymphadenopathy and Yes no JVD Thyroid: Thyroid normal Carotids: no bruits Resp Effort & Inspection: normal respiratory effort and not tachypneic Auscultation: no crackles, no rales, no rhonchi and no wheezes Cardio Rate: regular rate Rhythm: regular rhythm Heart sounds: no murmurs and normal S1 and S2 GI Palpation (GI): Soft to palpation, nontender, no hepatomegaly and no splenomegaly Auscultation: normal bowel sounds Skin General skin exam: no rashes or lesions noted and dry skin Neuro General: oriented to person, oriented to place and oriented to time Cranial nerves: Yes Equal, round and reactive pupils present Speech: No Abnormal speech present Gait exam (Neuro): Normal gait present Motor exam (neuro): no tremor noted Extrem Right upper extremity: full ROM Left upper extremity: full ROM Right lower extremity: full ROM; no edema Left lower extremity: full ROM; no edema Psych Mental Status: mental status grossly normal Speech and movement: Normal speech and movement present Affect: normal affect Attitude: cooperative Thought process: Normal thought process present Coding Level of Care Code Est Pt Level 4 (85953) Diagnoses Alzheimer's dementia without behavioral disturbance, unspecified timing of dementia onset G30.9; F02.80 Alzheimer's disease onset: unspecified onset Dementia behavioral disturbance: without behavioral disturbance Mixed hyperlipidemia E78.2 Hyperlipidemia type: mixed hyperlipidemia Obstructive sleep apnea G47.33 Persistent atrial fibrillation I48.19 Elevated fasting glucose R73.01 Class 1 obesity E66.811 Additional Codes PHQ-9 - 53155 - PHQ-9 Billing: Yes ([id number]) ROYER-7 Assessment Billing - ROYER-7 Assessment Tool: ROYER-7 Assessment 78258 ([id number]) Assessment & Plan Assessment & Plan (1) Alzheimer's dementia: Comment: with disinhibition Code(s): G30.9 - Alzheimer's disease, unspecified; F02.80 - Dementia in other diseases classified elsewhere, unspecified severity, without behavioral disturbance, psychotic disturbance, mood disturbance, and anxiety Category: Medical Qualifiers: Alzheimer's disease onset: unspecified onset Dementia behavioral disturbance: without behavioral disturbance Qualified Code(s): G30.9 - Alzheimer's disease, unspecified; F02.80 - Dementia in other diseases classified elsewhere without behavioral disturbance Plan: Patient continues to follow [facility]. He has been on experimental drug for the past few years. Most recent PET scan showing negative for amyloid plaque ? Patient's will reach out to Neurology for imaging PET scan evaluation/ interpretation (2) HLD (hyperlipidemia): Code(s): E78.5 - Hyperlipidemia, unspecified Category: Medical Qualifiers: Hyperlipidemia type: mixed hyperlipidemia Qualified Code(s): E78.2 - Mixed hyperlipidemia Plan: Patient's most recent lipid panel showing excellent control of his total cholesterol and LDL. Will continue current dose of simvastatin 20 mg. Goal LDL is to remain below 130 (3) Obstructive sleep apnea: Code(s): G47.33 - Obstructive sleep apnea (adult) (pediatric) Category: Medical Plan: Patient using CPAP machine on a nightly basis with good effect. (4) Persistent atrial fibrillation: Code(s): I48.19 - Other persistent atrial fibrillation Category: Medical Plan: Patient denies any dizziness, heart palpitations or chest pain. He continues with the use of Xarelto for his anticoagulation without any signs of overt bleeding. (5) Elevated fasting glucose: Code(s): R73.01 - Impaired fasting glucose Category: Medical Plan: Patient's fasting blood sugar remains slightly elevated at 105 A1c appropriate. Will work on low carbohydrate diet. (6) Class 1 obesity: Code(s): E66.811 - Obesity, class 1 Category: Medical Plan: Patient and family do understand [place] BMI is above 30 work on better eating habits to reduce his weight. Orders: Orders Prostate Specific Antigen Scr Today I48.19 - Other persistent atrial fibrillati on, Z12.5 - Encounter for screening for malignant neoplasm of prostate Hemoglobin A1c Today E78.2 - Mixed hyperlipidemia, R73.09 - Other abnormal glucose Lipid Panel Today E78.2 - Mixed hyperlipidemia Comprehensive [place]. Panel Fast Today I48.19 - Other persistent atrial fibrillation Complete Blood Count no Diff Today I48.19 - Other persistent atrial fibrillation
--- OUTSIDE RECORDS SUMMARY | 2025-02-27 08:23 | XMS_ITS | Clinical Summary ---
Author Organization [address] Address [address] [place] [id number] Care Team Providers Care Casing Fluid Tender Name Role Phone No, Pcp (Do Not Change Name) Primary Care Provid er Unavailable Allergies Active Allergy Reactions Criticality Noted Date Comments Cats Itching Low 12/07/2019 Itchiness to eyes. Dogs Itching Low 12/07/2019 Itchiness to eyes Medications * This document contains information received from the source organization and may not represent a complete record from that organization. warfarin (COUMADIN) 5 mg tablet Take 1 tablet (5 mg total) by mouth Daily @1800. Alternates with 7.5mg 3x weekly Active finasteride (PROSCAR) 5 mg tablet Take 1 tablet (5 mg total) by mouth daily. Active simvastatin (ZOCOR) 20 mg tablet Take 1 tablet (20 mg total) by mouth nightly. Active gabapentin (NEURONTIN) 300 mg capsule Take 1 capsule (300 mg total) by mouth Daily @1800. Active donepezil (ARICEPT) 10 mg tablet Take 1 tablet (10 mg total) by mouth nightly. Active cyanocobalamin (VITAMIN B-12) 1000 MCG tablet Take 1 tablet (1,000 mcg total) by mouth daily. Active MAGNESIUM ORALIndications :magnesium l-threonate Take 144 mg by mouth daily. Active enoxaparin sodium (LOVENOX SUBQ) Inject 20 mg under the skin 2 (two) times daily. Active Active Problems Problem Noted Date Diagnosed Date Research study patient 10/11/2019 Immunizations Name Administration Dates Next Due COVID-19 Vaccine - PFIZER 07/16/2021 Influenza, high-dose, split virus, trivalent,(65Yr+),injectable, preservative free 07/16/2021 Influenza, quad, adjuvanted, 0.5mL, preservative free 07/29/2020 Social History Tobacco Use Types Packs/Day Years Used Date Smoking Tobacco: Never Smokeless Tobacco: Never Alcohol Use Standard Drinks/Week Comments Yes 7 (1 standard drink = 0.6 oz pur e alcohol) One a day Interpersonal Safety Answer Date Record ed Is there anyone in your life that is hurting or threatening you in anyway? no 10/16/2024 Physical Indicators of Abuse No evidence of phys ical abuse 10/16/2024 Sex and Gender Information Value Date Recorded Sex Assigned at Not on file Legal Sex Male 11:14 AM EST Gender Identity Not on file Sexual Orientation Not on file Last Filed Vital Signs Vital Sign Reading Time Taken Comments Blood Pressure 122/70 10/16/2024 2:23 PM EST Pulse 57 10/16/2024 2:23 PM EST Temperature 36.2 ??C (97.1 ??F) 10/16/2024 2:23 PM ES T Respiratory Rate 16 10/16/2024 2:23 PM EST Oxygen Saturation 98% 10/16/2024 12:20 PM EST Inhaled Oxygen Concentration - - Weight - - Height - - Body Mass Index - - Plan of Treatment Health Maintenance Due Date Last Done Comments HIV screening 1963 Hepatitis C screening 1968 Lipid disorder screening 1990 Colon cancer screening, Colonoscopy 1995 Diabetes screening 1995 Shingles vaccine (Shingrix) (1 of 2 - Shingrix (RZV) 2 Dose Standard Series) 2000 RSV Immunization (1 - Risk 60-74 years 1-dose series) 2010 Pneumococcal Vaccine (50+ years) (2 of 2 - PCV) 12/15/2019 12/14/2018 Covid-19 vaccine series ( season) 2024 07/16/2021, 12/09/2020, 11/17/2020 Influenza vaccine 06/04/2025 07/16/2021, , 11/27/2019, Additional history exists Tetanus adult (Td q 10,TDAP once) 12/14/2028 12/14/2018, 04/25/2014 Meningococcal Vaccine Aged Out No irene treva eligible based on patient's age to complete this topic Insurance MEDICARE MEDICARE MEDICARE Care Teams Casing Fluid Tender Relationship Specialty Start Date End Date No, Pcp (Do Not Change Name) PCP - General 12/21/19
== END 2025-02-27 08:55 | disposition home or self-care (01) ==
LOC: HO.HMCH 08:18
PROVIDERS: PCP Physician Assistant; Visit Provider Physician Assistant
DX: I48.19 Other persistent atrial fibrillation (principal); G30.9 Alzheimer's disease, unspecified; F02.80 Dementia in other diseases classified elsewhere, unspecified severity, without behavioral disturbance, psychotic disturbance, mood disturbance, and anxiety; E66.811 Obesity, class 1; Z68.31 Body mass index [BMI] 31.0-31.9, adult; E78.2 Mixed hyperlipidemia; G47.33 Obstructive sleep apnea (adult) (pediatric); R73.01 Impaired fasting glucose

== ENCOUNTER → 2025-02-27 08:17 | Outpatient (BNVA) | payer MEDICARE, OTHER, SELFPAY | PROVIDERS: PCP Physician Assistant; Visit Provider Physician Assistant | DX: G30.9 Alzheimer's disease, unspecified (principal); F02.80 Dementia in other diseases classified elsewhere, unspecified severity, without behavioral disturbance, psychotic disturbance, mood disturbance, and anxiety; E78.2 Mixed hyperlipidemia; G47.33 Obstructive sleep apnea (adult) (pediatric); I48.19 Other persistent atrial fibrillation; R73.01 Impaired fasting glucose; E66.811 Obesity, class 1 | CPT/HCPCS: 96127; 99212 ==

== ENCOUNTER 2025-08-21 10:43 | Outpatient (AMB) | payer MEDICARE, OTHER, SELFPAY ==
[2025-08-21 11:12] VITALS: BP 110/64; PULSE 60; O2SAT 96; BMI 32.1
--- NOTE | 2025-08-21 11:12 | A.OFFVIS_ITS ---
Vital Signs 08/21/25 11:12 Height 5 ft 10 in Weight 223 lb 8 oz BMI 32.1 BP 110/64 Blood Pressure Location Rt brachial Position Sitting Pulse 60 Pulse Source Pulse Oximeter Pulse Oximetry (%) 96 Oxygen Delivery Method Room Air Intake Visit Reasons: 1yr f/u (CONF.) Intake Note: Patient presents follow up Alzheimer's. PETscan in chart. Accompanied by: Spouse Allergies cat dander (CAT DANDER) Allergy (Unknown, Verified 08/21/25 11:14) COUGHING seasonal Allergy (Unknown, Uncoded 02/27/25 08:31) UNKNOWN HPI Comments Details: 75 y/o male comes for further management of dementia (Alzheimers). Roxanne his helps with history taking. He was in a 2 year study with [facility] research program for Alzheimers medication trial- blind study (Leqembi). Medication was approved and would like to continue on therapy subq form every 4 weeks, pending insurance approval and next steps. Petscan 12/2024 was reviewed with pt today, and centiloid burden is 29.9, indicating moderate plaque intensity. 0-20 Centiloids is a negative scan. According to his he started having short term memory issues over 10 years ago which progressed. He was evaluated at [facility] and was diagnosed with Alzheimers dementia. He has h/o VISHAL on CPAP and compliant with use. He is followed by the [facility] in [facility]. His states he has declined. He is independent in all his ADLs, needs some cuing by , for dressing and showering. He has moved to a new home across the street, and does not remember directions, taking the garbage out into the kitchen / vs. garage. 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 Does not recognize his children and grand children, forgets his . He has Raynauds, his notices his finger R. hand second digit blanching, will refer to pcp for management. He has urinary incontinence mainly overnight, waking daily with wet briefs. He is making more trips to the bathroom, frequency > urgency. Mood is always pleasant, diet is stable, he walks as he is able to tolerate short distances. FH + both parents with dementia, dad in his 60s. Today he had a MMSE score of 21/30. PeT scan from [facility] Medical History DVT (deep venous thrombosis) Pre-op evaluation Surgical History History of hernia repair History of colonoscopy History of surgery Hx of arthrodesis S/P tendon repair [place] filter in place History of vasectomy History of splenectomy Family History Father Heart problem Cardiac arrest Dementia Mother Hypertension Dementia Glaucoma Daughter In good health Daughter In good health Daughter In good health Son In good health Social History Housing: House Alcohol intake: current Alcohol intake frequency: holidays/special occasions only Alcohol type: beer Patient Tobacco Use Status: Never used Tobacco e-Cigarette/Vaping Use: Never Used Second Hand Smoke Exposure: No service: No Current occupational status: retired Cognitive needs: No Hearing needs: No Vision needs: No Review of Systems ENT Reports Normal hearing present Neuro Reports Normal hearing present Physical Exam Vital Signs: Last Vital Signs Pulse 60 08/21/25 11:12 BP 110/64 08/21/25 11:12 Pulse Ox 96 08/21/25 11:12 Oxygen Delivery Method Room Air 08/21/25 11:12 BMI result Body Mass Index 32.1 Const General: cooperative, comfortable and no acute distress Nutritional Appearance: obese Orientation/consciousness: patient oriented x3 HEENT Face and sinus: Yes normal facial exam and Yes face symmetric Eyes Pupils: Equal, round and reactive pupils present, Pupils normal by confrontation and Pupil accommodation reflex normal Neck Neck: Yes full ROM and Yes supple Resp Effort & Inspection: normal respiratory effort and able to speak in complete sentences Neuro General: patient oriented x3, gait normal, moves all extremities and Normal light touch and pain sensation Cranial nerves: Yes CN's II-XII intact bilaterally, Yes Facial sensation intact/muscles of mastication intact, Yes Equal, round and reactive pupils present, Yes Nystagmus not present, Yes Normal facial strength present, Yes Midline tongue present, Yes Normal hearing present, Yes Ability to bilaterally rotate head present and Yes Ability to bilaterally elevate shoulders present Motor exam (neuro): 5/5 motor strength present throughout and Normal motor muscle tone present throughout Deep tendon reflexes (DTR's): Right triceps reflex intensity grade: 2+, Left triceps reflex intensity grade: 2+, Rt Biceps (C5, C6): 2+, Left biceps reflex intensity grade: 2+, Right brachioradialis reflex intensity grade: 2+, Left brachioradialis reflex intensity grade: 2+, Right patellar reflex intensity grade: 2+ and Left patellar reflex intensity grade: 2+ Coordination: [id number] test normal Psych Other: MMSE is 21/ 30 Appearance: well kempt Mental Status: other Speech and movement: Normal speech and movement present Orientation Where are we (state) (county) (town or city) (hospital) (floor)?: state, hospital/clinic and floor Registration Name of 3 unrelated objects clearly and slowly, then ask patient to repeat all 3 of them. (1st repeat determines score. Make sure they can repeat all three): object 1, object 2 and object 3 Attention & Calculation (CHOOSE ONE) Ask pt to begin with 100 & count backward by 7. Stop after 5 repeats. If pt cannot ask them to spell the word WORLD backward.: 93, 86, 79, 72 and 65 Recall Ask patient to repeat the 3 items from question #3.: object 1 and object 2 Language Show patient a wristwatch & ask what it is. Repeat for pencil.: watch and pencil Ask the patient to repeat the phrase 'No ifs, ands, or buts' after you.: correct Ask the patient to 'take a piece of paper with their right hand' 'fold paper in half' 'place paper on floor': take paper in right hand, fold paper in half and place paper on floor Print the sentence 'CLOSE YOUR EYES' on a piece. If patient actually closes eyes then score.: followed written direction Give patient a blank piece of paper & ask to write a sentence. Score if it contains a noun & verb.: sentence contains subject and verb Score Score: 21 Results Reviewed Results Reviewed: Petscan 12/2024 was reviewed with pt today, and centiloid burden is 29.9, indicating moderate plaque intensity. 0-20 Centiloids is a negative scan. MMSE is 21- mild cognitive impairment. Assessment & Plan Assessment & Plan (1) Alzheimer's dementia: Comment: with disinhibition Code(s): G30.9 - Alzheimer's disease, unspecified; F02.80 - Dementia in other diseases classified elsewhere, unspecified severity, without behavioral disturbance, psychotic disturbance, mood disturbance, and anxiety Category: Medical Qualifiers: Alzheimer's disease onset: unspecified onset Dementia behavioral disturbance: without behavioral disturbance Qualified Code(s): G30.9 - Alzheimer's disease, unspecified; F02.80 - Dementia in other diseases classified elsewhere without behavioral disturbance (2) Forgetfulness: Code(s): R68.89 - Other general symptoms and signs Category: Medical (3) Mild cognitive impairment: Code(s): G31.84 - Mild cognitive impairment of uncertain or unknown etiology Category: Medical Plan Mild Cognitive Impairment MMSE is 2130 Alzheimers Dementia 12/2024 PETscan reviewed with pt and Centiloid plaque intensity is 29.9. Negative scan is 0-20, however symptoms can be present with negative scans. Patient completed trial and last infusion was in March 2025, he would like to start Leqembi subq every 4 weeks, pending insurance. Continue Memantine 28mg po daily and Donepezil 10mg po daily. VISHAL Patient is compliant uses his device nightly and managed by the [facility]. Elier will refer to PCP for management. Pt edcuation re: diet and lifetyle changes: Exercise daily and routinely as tolerable, monitor caloric intake to achieve and maintain BMI in the normal range for age. Increase social activities, puzzles, and games with friends and family. Patient Instructions: Requested PETscan from [facility] >8 years ago, first diagnosed with Alzheimers dementia. Marci torrez RN will be in contact with information re: infusions and getting approved for therapy and next steps. Contact PCP re: Sonnys F/U. Contact [facility] for any supplies for sleep apnea needs. F/u in 6 months or sooner as needed. Infusion Center Information: March 07 2025 he had his last infusion and MRI post leqembi infusion in the infusion center. point of contact name Zohreh / POC at center is [place] Nurse visits at home for infusions. Coding Level of Care Code Est Pt Level 4 (20656) Diagnoses Alzheimer's dementia without behavioral disturbance, unspecified timing of dementia onset G30.9; F02.80 Alzheimer's disease onset: unspecified onset Dementia behavioral disturbance: without behavioral disturbance Forgetfulness R68.89 Mild cognitive impairment G31.84
== END 2025-08-21 12:25 | disposition home or self-care (01) ==
LOC: HO.HSMS 10:44
PROVIDERS: PCP Physician Assistant; Visit Provider Physician Assistant Medical
DX: G30.9 Alzheimer's disease, unspecified (principal); F02.80 Dementia in other diseases classified elsewhere, unspecified severity, without behavioral disturbance, psychotic disturbance, mood disturbance, and anxiety; R68.89 Other general symptoms and signs; G31.84 Mild cognitive impairment of uncertain or unknown etiology
CPT/HCPCS: 99214

== ENCOUNTER → 2025-08-21 10:43 | Outpatient (BNVA) | payer MEDICARE, OTHER, SELFPAY | PROVIDERS: PCP Physician Assistant; Visit Provider Physician Assistant Medical | DX: G30.9 Alzheimer's disease, unspecified (principal); F02.80 Dementia in other diseases classified elsewhere, unspecified severity, without behavioral disturbance, psychotic disturbance, mood disturbance, and anxiety; G47.33 Obstructive sleep apnea (adult) (pediatric); Z99.89 Dependence on other enabling machines and devices; N39.44 Nocturnal enuresis; R35.1 Nocturia | CPT/HCPCS: 99212 ==

== ENCOUNTER 2025-09-04 11:00 | Outpatient (AMB) | payer MEDICARE, OTHER, SELFPAY ==
--- NOTE | 2025-09-04 11:16 | MHC.PC.OV ---
Vital Signs 09/04/25 11:17 Height 5 ft 10 in Weight 221 lb 4 oz BMI 31.7 BP 124/74 Blood Pressure Location Lt brachial Position Sitting Pulse 51 Pulse Source Pulse Oximeter Temp 97.3 F Temp Source Temporal Artery Scan Pulse Oximetry (%) 98 Oxygen Delivery Method Room Air Intake Visit Reasons: PE Intake Note: Patient is here today for a physical. Emergency Department Manager Required: No Merchandise Pickup/Receiving Associate: Present Accompanied by: Spouse Allergies cat dander (CAT DANDER) Allergy (Unknown, Verified 09/04/25 11:45) COUGHING seasonal Allergy (Unknown, Uncoded 09/04/25 11:45) UNKNOWN Medication List - Last Reconciled 09/04/25 by Fabien Yang PA-C albuterol sulfate 90 mcg/actuation 1 inh inhalation QID PRN 30 days donepezil 10 mg PO DAILY finasteride 5 mg PO DAILY mecobalamin (vitamin B12) 500 mcg sublingual DAILY memantine 28 mg PO DAILY 90 days [NEURO MAG PO] rivaroxaban (Xarelto) 20 mg PO DAILY simvastatin 20 mg PO BEDTIME 90 days Tobacco use date assessed: 09/04/25 Fall risk assessment: No Falls in past year Last assessed Fall Risk: 09/04/25 Dental Screening Dental Screen Date: 02/27/25 HPI PE HPI Details Patient is a 75-year-old male here ?today for an annual physical. ? Patient has a past medical history significant for persistent AFib, hyperlipidemia, BPH. Concern--> The patient has been experiencing episodes where fingers turn white with a clear demarcation, which has been concerning. One recent episode lasted for approximately 10 minutes before color returned. These symptoms are isolated to the hands, with no complaints regarding the feet. A neurologist had previously suggested a rheumatology consultation for Raynaud's disease. .. Paroxysmal AFib:? Has been transition to Xarelto no overt signs of bleeding..? Denies any reports of chest discomfort, palpitations or shortness of breath. Noted low heart rate today in office. Also has been noted by his business office representative, will send for EKG along with his labs to eval for any AV node block Patient is completely asymptomatic. ? Obstructive sleep apnea:? patient uses CPAP nightly with Good affect. .. Alzheimer's disease:? Continues to follow a neurologist . Continues on a experimental treatment for Alzheimer's disease which has been FDA approved recently. At this time his makes all of his medical decisions. His Alzheimer's has not seem to progress much as per . He recently had PET scan which did not show evidence of amyloid packs though will follow up with neurologist on interpretation in comparison to initial PET scan.. Elevated fasting blood sugar: Noted elevated fasting blood sugar 105 on most recent labs. Family notes dietary indiscretion. Will work on lifestyle modifications to reduce his blood sugars. Vaccine: Up-to-date with tetanus, pneumonia, COVID vaccines. ConsideringHigh dose flu vaccine in near future Colorectal cancer screening: DOne in 2017- normal - repat 10 years [facility] Medical History DVT (deep venous thrombosis) Pre-op evaluation Surgical History History of hernia repair History of colonoscopy History of surgery Hx of arthrodesis S/P tendon repair E[place] filter in place History of vasectomy History of splenectomy Family History Father Heart problem Cardiac arrest Dementia Mother Hypertension Dementia Glaucoma Daughter In good health Daughter In good health Daughter In good health Son In good health Social History Housing: House Alcohol intake: current Alcohol intake frequency: holidays/special occasions only Alcohol type: beer Patient Tobacco Use Status: Never used Tobacco e-Cigarette/Vaping Use: Never Used Second Hand Smoke Exposure: No service: No Current occupational status: retired Cognitive needs: No Hearing needs: No Vision needs: No Questionnaire Thrive Questionnaire Date Thrive assessed: 02/27/25 I am a: Parent/Caregiver What is your living situation today?: I have a steady place to live Within the past 12 months, did the food you bought not last and you didn't have the money to get more?: Never true Within the past 12 months, did you worry whether your food would run out before you got money to buy more?: Never true Do you have trouble paying for medicines?: No Do you have trouble getting transportation to medical appointments?: No Do you have trouble paying your heating and electricity bill?: No Do you have trouble taking care of your child, family member or friend?: No Do you have trouble with day-to-day activities such as bathing, preparing meals, shopping, managing finances, etc.?: Yes Are you currently unemployed and looking for a job?: No Are you interested in more education?: No Please select the resources that you would like help with: Care for elder or disabled Currently or been in a relationship where the following occur: No concerns reported THRIVE Score: 0 ROYER-7 AMB Questionnaire ROYER-7 Date ROYER - 7 assessed: 02/27/25 Source: Developed by Drs. Negro Hunt, Yee Castellano, Arya Singh and colleagues, with an educational randall from [employer]. Review of Systems Const Denies body aches, Denies chills, Denies excessive sweating, Denies fatigue, Denies fever(s) and Denies headache(s) Eyes Denies blurry vision ENT Denies dysphagia, Denies vertigo, Denies dizziness, Denies headache(s), Denies hearing loss and Denies tinnitus Card Denies chest pain, Denies chest pain with activity, Denies syncope, Denies irregular heart rhythm and Denies dyspnea Resp Denies chest congestion, Denies cough, Denies hemoptysis, Denies dyspnea and Denies wheezing GI Denies abdominal pain, Denies melena, Denies hematochezia, Denies coffee ground emesis, Denies dysphagia, Denies diarrhea, Denies nausea and Denies vomiting Denies difficulty urinating, Denies dysuria, Denies urinary frequency, Denies urinary hesitancy and Denies urinary urgency Musc Denies arthralgias, Denies limited range of motion, Denies muscle cramps and Denies muscle weakness Skin/Breast Denies rash and Denies skin ulcer Neuro Denies Abnormal speech present, Denies confusion, Denies vertigo, Denies dizziness, Denies syncope, Denies headache(s), Denies memory loss and Denies seizure-like activity Psych Denies anxiety, Denies confusion, Denies depression, Denies memory loss, Denies panic attacks and Denies paranoia Endo Denies excessive sweating, Denies fatigue, Denies flushing, Denies polydipsia and Denies polyuria Aller/Immun Denies wheezing Physical exam (Primary Care) Vital Signs: Last Vital Signs Temp 97.3 F 12/02/25 11:17 Pulse 51 09/04/25 11:17 BP 124/74 09/04/25 11:17 Pulse Ox 98 09/04/25 11:17 Oxygen Delivery Method Room Air 09/04/25 11:17 BMI result Body Mass Index 31.7 Tobacco/Smoking Status: Tobacco use Status Tobacco use date assessed 09/04/25 09/04/25 11:17 Patient Tobacco Use Status Never used Tobacco 09/04/25 11:17 e-Cigarette/Vaping Use Never Used 09/04/25 11:17 Thrive Assessment: Date of Thrive Assessment Date Thrive assessed 02/27/25 09/04/25 11:17 Currently or been in a relationship where the following occur: No concerns reported Const General: cooperative, comfortable, no acute distress, alert and awake; No confusion Orientation/consciousness: oriented to person, oriented to place, patient oriented x3 and No confusion HENMT Head: Yes normocephalic Ears: external ears normal and TM's normal bilaterally Face and sinus: No sinus tenderness Mouth: Normal oral and palatal mucosa present and tongue normal Teeth and gingiva: dentition normal and gingiva normal Throat: Yes posterior oropharynx normal, Yes tonsils normal and Yes uvula midline Eyes Conjunctivae: conjunctivae normal Sclerae: sclerae normal Pupils: Equal, round and reactive pupils present EOM: EOMs intact bilaterally Direct Ophthalmoscopy: No no photophobia Neck Neck: Yes no lymphadenopathy, No tender and Yes no JVD Thyroid: Thyroid normal Carotids: no bruits Chest Chest palpation & inspection: no tenderness Resp Effort & Inspection: normal respiratory effort, no audible wheezes, not labored and no stridor Auscultation: no crackles, no rales, no rhonchi and no wheezes Cardio Jugular venous distension: no JVD Rate: regular rate, not bradycardic and not tachycardic Rhythm: regular rhythm Bruits: no carotid bruits Peripheral pulses: Peripheral pulses 2+ throughout GI Inspection: Yes normal to inspection, No abdominal wall ecchymosis and No visible herniation Palpation (GI): Soft to palpation, nontender, no guarding, not rigid and No hepatosplenomegaly present Auscultation: normoactive bowel sounds General: Yes no CVA tenderness Back/Spine/Pelvis Back: no CVA tenderness and No back tenderness Cervical Spine: cervical ROM normal Thoracic/Lumbar Spine: thoracic and lumbar spine normal to inspection, straight leg raise negative bilaterally, No thoraco-lumbar ROM limited and No lumbar spinal tenderness Skin Lesions: no lesions Rashes: no rashes Wounds: no wounds Neuro General: oriented to person, oriented to place, patient oriented x3, CN's II-XI intact bilaterally and No confusion Cranial nerves: Yes Equal, round and reactive pupils present and Yes Normal accommodation reflex present Cognition (Neuro): normal cognition Speech: No Abnormal speech present Gait exam (Neuro): Normal gait present Motor exam (neuro): 5/5 motor strength present throughout Extrem Right upper extremity: full ROM; no cyanosis Left upper extremity: full ROM; no cyanosis Right lower extremity: no edema Left lower extremity: no edema Psych Appearance: grossly normal Mental Status: mental status grossly normal Affect: normal affect Attitude: cooperative Thought process: Normal thought process present Coding Level of Care Code Est Pt Prev Care >65y(47280) Diagnoses Annual physical exam Z00. Raynaud's disease without gangrene I73.00 Raynaud?s-associated gangrene presence: without gangrene Alzheimer's dementia without behavioral disturbance, unspecified timing of dementia onset G30.9; F02.80 Alzheimer's disease onset: unspecified onset Dementia behavioral disturbance: without behavioral disturbance Mixed hyperlipidemia E78.2 Hyperlipidemia type: mixed hyperlipidemia Obstructive sleep apnea G47.33 Persistent atrial fibrillation I48.19 Elevated fasting glucose R73.01 Bradycardia R00.1 Class 1 obesity E66.811 Assessment & Plan Assessment & Plan (1) Annual physical exam: Code(s): Z00.00 - Encounter for general adult medical examination without abnormal findings Category: Medical Plan: As per HPI (2) Raynauds syndrome: Code(s): I73.00 - Raynaud's syndrome without gangrene Category: Medical Qualifiers: Raynaud?s-associated gangrene presence: without gangrene Qualified Code(s): I73.00 - Raynaud's syndrome without gangrene Plan: Regarding the Raynaud's phenomenon, a rheumatology consultation is not deemed necessary at this time, as symptoms are intermittent and not severe. Management will focus on conservative measures, such as avoiding cold triggers and keeping hands warm with gloves. Medication, such as calcium channel blockers, is not indicated at this time. (3) Alzheimer's dementia: Comment: with disinhibition Code(s): G30.9 - Alzheimer's disease, unspecified; F02.80 - Dementia in other diseases classified elsewhere, unspecified severity, without behavioral disturbance, psychotic disturbance, mood disturbance, and anxiety Category: Medical Qualifiers: Alzheimer's disease onset: unspecified onset Dementia behavioral disturbance: without behavioral disturbance Qualified Code(s): G30.9 - Alzheimer's disease, unspecified; F02.80 - Dementia in other diseases classified elsewhere without behavioral disturbance Plan: Patient continues to follow [facility]. He has been on experimental drug for the past few years. Most recent PET scan showing negative for amyloid plaque (4) HLD (hyperlipidemia): Code(s): E78.5 - Hyperlipidemia, unspecified Category: Medical Qualifiers: Hyperlipidemia type: mixed hyperlipidemia Qualified Code(s): E78.2 - Mixed hyperlipidemia Plan: Patient's most recent lipid panel showing excellent control of his total cholesterol and LDL. Will continue current dose of simvastatin 20 mg. Goal LDL is to remain below 130 (5) Obstructive sleep apnea: Code(s): G47.33 - Obstructive sleep apnea (adult) (pediatric) Category: Medical Plan: Patient using CPAP machine on a nightly basis with good effect. (6) Persistent atrial fibrillation: Code(s): I48.19 - Other persistent atrial fibrillation Category: Medical Plan: Patient denies any dizziness, heart palpitations or chest pain. He continues with the use of Xarelto for his anticoagulation without any signs of overt bleeding. Noted slightly low heart rate today in office, patient asymptomatic. Will send for EKGs to [facility] for any heart block. (7) Elevated fasting glucose: Code(s): R73.01 - Impaired fasting glucose Category: Medical Plan: Patient's fasting blood sugar remains slightly elevated at 105 A1c appropriate. Will work on low carbohydrate diet. (8) Bradycardia: Code(s): R00.1 - Bradycardia, unspecified Category: Medical Plan: To evaluate the bradycardia (heart rate of 51), an EKG will be ordered to be completed along with the patient's pending lab work, though the patient reports no significant symptoms. (9) Class 1 obesity: Code(s): E66.811 - Obesity, class 1 Category: Medical Plan: Patient and family do understand his BMI is over 30 will continue working on lifestyle and dietary modifications to reduce his weight. Orders: Orders ECG 12 lead EKG 09/04/25 R00.1 - Bradycardia, unspecified
[2025-09-04 11:17] VITALS: BP 124/74; PULSE 51; TEMP 36.3; O2SAT 98; BMI 31.7
--- OUTSIDE RECORDS SUMMARY | 2025-09-04 13:00 | XMS_ITS | Encounter Summary ---
Author Organization [facility] Address [address] [facility] [address] [place] [address] Phone Care Team Providers Care Glaucoma Specialist Name Role Phone Jose Cruz DO Primary Care Provider [phone] Andres De La Fuente DO Primary Care Provider Fabien Yang Primary Care Provider + Encounter Details Date Type Department Care Team (Latest Contact Info) Description 03/21/2018 Transcribe Orders [facility] Specimen Processing 30 [place] [address] Taran Ortiz MD 38 [facility] 204, [address] [place] [address] [email or web address] Anticoagulated on Coumadin (Primary Dx) Social History Tobacco Use Types Packs/Day Years Used Date Smoking Tobacco: Never Smokeless Tobacco: Never Alcohol Use Standard Drinks/Week Comments Yes 7 (1 standard drink = 0.6 oz pur e alcohol) Sex and Gender Information Value Date Recorded Sex Assigned at Male 03/20/2021 5:28 PM EDT Legal Sex Male 10:02 PM EDT Gender Identity Male 03/20/2021 5:28 PM EDT Sexual Orientation Not on file documented as of this encounter Plan of Treatment Upcoming Encounters Date Type Department Care Team (Late st Contact Info) Description 02/20/2026 11:00 AM EDT Office Visit [facility] [address] [facility] 3rd Floor, [address] [place] [address] Cris Drake, CHELSIE [address] [facility], [address] [place] [address] [email or web address] documented as of this encounter Results * PSA (screening) (03/21/2018 3:30 PM EDT) PSA 1.50 0 - 4.00 ng/mL [facility] Blood 03/21/2018 3:30 PM EDT 03/21/2018 3:35 PM EDT us Taran Ortiz MD LAB BLOOD BKR ORDERABLES Final R esult Performing Organization Address City/[facility]/ZIP Co de Phone Number [address] [address] * (ABNORMAL) PT-INR (03/21/2018 3:00 PM EDT) PT 15.3(H) 10.2 - 12.9 sec [facility] INR 1.4(H) 0.9 - 1.1 [facility] Comment:Therapeutic range fo r oral Vitamin K antagonists: 2.0-3.5 Blood 03/21/2018 3:00 PM EDT 03/21/2018 3:33 PM EDT us Taran Ortiz MD LAB BLOOD BKR ORDERABLES Final R esult Performing Organization Address [facility]/ZIP Co de Phone Number [address] [address] documented in this encounter Visit Diagnoses Diagnosis Anticoagulated on Coumadin- Primary documented in this encounter Care Teams Glaucoma Specialist Relationship Specialty Start Date End Date Jose Cruz DO [address] [place] [address] PCP - General 07/22/17 04/02/18 Andres De La Fuente DO [address] [place] [address] PCP - General Family Medicine 04/03/18 07/09/19 Fabien Yang PA [address] [place] [address] PCP - General 07/10/19 documented as of this encounter Additional Source Comments The information contained in this document represents components of the legal health record. It is not the complete legal health record.[facility]
--- OUTSIDE RECORDS SUMMARY | 2025-09-04 13:00 | XMS_ITS | Encounter Summary ---
Author Organization [facility] Address [facility] [address] [address] Phone Care Team Providers Care Credit Risk Modeler Name Role Phone Jose Cruz DO Primary Care Provider [phone]- [phone] Andres De La Fuente DO Primary Care Provider [phone] Fabien Yang Primary Care Provider + Reason for Referral * Physical Therapy (Routine) - Closed Specialty Diagnoses / Procedures Referred By Alicia ferrer Referred To Contact Physical Therapy Diagnoses Encounter for rehabilitation preop mobility assessment right triple arthodesis Procedures physical therapy System, Provider Not In, PhD [id number] [place] [address] [address] [place] [address] Phone: tel: Referral ID Status Reason Start Date Expiration Date Visits Re quested Visits Authorized [id number] Closed 01/27/2018 10/03/2018 99 99 Encounter Details Date Type Department Care Team (Latest Contact Info) Description 01/20/2018 Transcribe Orders [facility] [address] [place] [address] Sina Bianchi MD [address] [place] [address] Encounter for rehabilitation (Primary Dx) Social History Tobacco Use Types [...] Description 02/20/2026 11:00 AM EDT Office Visit [facility] [address] [place] [address] 3rd Floor, [address] [place] [address] Cris Drake, [address] [address] [email or web address] documented as of this encounter Procedures Procedure Name Priority Date/Time Associated Diagnosis Comments AMB REFERRAL TO [facility] PHYSICAL THERAPY Routine 01/27/2018 6:57 PM EDT Encounter for rehabilitation documented in this encounter Results * Ambulatory referral to [facility] Physical Therapy (01/27/2018 6:57 PM EDT) us Provider Not In System PhD AMB [facility] REFERRALS Fin al Result documented in this encounter Visit Diagnoses Diagnosis Encounter for rehabilitation- Primary documented in this encounter Care Teams Credit Risk Modeler Relationship Specialty Start Date End Date Jose Cruz DO [address] [place] [address] PCP - General 07/22/17 04/02/18 Andres De La Fuente DO [address] [place] [address] PCP - General Family Medicine 04/03/18 07/09/19 Fabien Yang PA [address] [place] [address] PCP - General 07/10/19 documented as of this encounter Additional Source Comments The information contained in this document represents components of the legal health record. It is not the complete legal health record.[facility]
--- OUTSIDE RECORDS SUMMARY | 2025-09-04 13:00 | XMS_ITS | Encounter Summary ---
Author Organization [facility] Address [address] [employer] [facility] [address] [place] [address] Phone Care Team Providers Care Mgmt Analyst Name Role Phone Jose Cruz DO Primary Care Provider [phone] Andres De La Fuente DO Primary Care Provider [phone] Fabien Yang Primary Care Provider + Encounter Details Date Type Department Care Team (Late st Contact Info) Description 11/22/2017 Transcribe Orders [address] [address] Ascencion Meza MD [address] [place] [address] [address] [place] [address] Malignant neoplasm of prostate (Primary Dx) Social History Tobacco Use Types Packs/Day Years Used Date Smoking Tobacco: Never Assessed Sex and Gender Information Value Date Recorded Sex Assigned at Male 03/20/2021 5:28 PM EDT Legal Sex Male 10:02 PM EDT Gender Identity Male 03/20/2021 5:28 PM EDT Sexual Orientation Not on file documented as of this encounter Plan of Treatment Upcoming Encounters Date Type Department Care Team (Late st Contact Info) Description 02/20/2026 11:00 AM EDT Office Visit [facility] 22 [facility] 3rd Floor, [address] [place] [address] Cris Drake, CHELSIE 22 [facility], [address] [place] [address] [email or web address] documented as of this encounter Results * PSA (screening) (11/22/2017 8:20 AM EST) PSA 2.10 0 - 4.00 ng/mL [facility] Blood 11/22/2017 8:20 AM EST 11/22/2017 8:24 AM EST us Ascencion Meza MD LAB BLOOD BKR ORDERAB LES Final Result [facility] [address] [place] [address] documented in this encounter Visit Diagnoses Diagnosis Malignant neoplasm of prostate- Primary documented in this encounter Care Teams Mgmt Analyst Relationship Specialty Start Date End Date Jose Cruz DO [address] [place] [address] PCP - General 07/22/17 04/02/18 Andres De La Fuente DO [address] [place] [address] PCP - General Family Medicine 04/03/18 07/09/19 Fabien Yang PA [address] [place] [address] PCP - General 07/10/19 documented as of this encounter Additional Source Comments The information contained in this document represents components of the legal health record. It is not the complete legal health record.[facility]
--- OUTSIDE RECORDS SUMMARY | 2025-09-04 13:00 | XMS_ITS | Encounter Summary ---
Author Organization [facility] Address [address] [place] [address] Phone Care Team Providers Care Gamma Ray Operator Name Role Phone Fabien Yang Primary Care Provider + Encounter Details Date Type Department Care Team (Late st Contact Info) Description 06/24/2021 Procedure Pass OR Admitting Dept - Virtual Department 30 [place] [address] Social History Tobacco Use Types Packs/Day Years Used Date Smoking Tobacco: Never Smokeless Tobacco: Never Comments:lives with a smoker Alcohol Use Standard Drinks/Week Comments Yes 7 (1 standard drink = 0.6 oz pur e alcohol) at most usually less Sex and Gender Information Value Date Recorded Sex Assigned at Male 03/20/2021 5:28 PM EDT Legal Sex Male 10:02 PM EDT Gender Identity Male 03/20/2021 5:28 PM EDT Sexual Orientation Not on file documented as of this encounter Plan of Treatment Upcoming Encounters Date Type Department Care Team (Late st Contact Info) Description 02/20/2026 11:00 AM EDT Office Visit [facility] [address] [place] [address] 3rd Floor, [address] [place] [address] Cris Drake, CHELSIE 22 [facility], [address] [place] [address] [email or web address] documented as of this encounter Visit Diagnoses Not on filedocumented in this encounter Care Teams Gamma Ray Operator Relationship Specialty Start Date End Date Fabien Yang PA [address] [place] [address] PCP - General 07/10/19 documented as of this encounter Additional Source Comments The information contained in this document represents components of the legal health record. It is not the complete legal health record.[facility]
--- OUTSIDE RECORDS SUMMARY | 2025-09-04 13:00 | XMS_ITS | Clinical Summary ---
Author Organization [address] Address [address] [place] [id number] Care Team Providers Care Bottle Packing Machine Cleaner Name Role Phone No, Pcp (Do Not [...] Diagnosed Date Research study patient 10/11/2019 Immunizations Immunization Administration Dates Next Due COVID-19 Vaccine - [...] 57 10/16/2024 2:23 PM EST Temperature 36.2 C (97.1 F) 10/16/2024 2:23 PM EST Respiratory Rate 16 10/16/2024 2:23 PM EST [...] Shingrix (RZV) 2 Dose Standard Series) 2000 Pneumococcal Vaccine (50+ years) (2 of 2 - PCV) 12/15/2019 12/14/2018 Influenza vaccine 05/04/2025 07/16/2021, , 11/27/2019, Additional history exists Covid-19 vaccine series ( - 2024- season) 2025 07/16/2021, 12/09/2020, 11/17/2020 RSV Immunization (1 - 1-dose 75+ series) 2025 Tetanus adult (Td q 10,TDAP once) 12/14/2028 12/14/2018, 04/25/2014 Meningococcal B Vaccine Aged Out No l onger eligible based on patient's age to complete this topic Meningococcal Vaccine Aged Out No irene treva eligible based on patient's age to complete this topic Insurance MEDICARE MEDICARE MEDICARE Care Teams Bottle Packing Machine Cleaner Relationship Specialty Start Date End Date No, Pcp (Do Not Change Name) PCP - General 12/21/19
--- OUTSIDE RECORDS SUMMARY | 2025-09-04 13:00 | XMS_ITS | Encounter Summary ---
Author Organization [facility] Address [facility] [employer] [facility] [address] [place] [address] Phone Care Team Providers Care Teacher Adventure Education Name Role Phone Nancy Jose Neil DO Primary Care Provider [phone] Andres De La Fuente DO Primary Care Provider [phone] Fabien Yang Primary Care Provider + Encounter Details Date Type Department Care Team (Late st Contact Info) Description 03/19/2018 Transcribe Orders [facility] Specimen Processing 30 [place] [address] Taran Ortiz MD 38 [facility] [address], [address] [place] [address] [email or web address] Atrial fibrillation, unspecified type (Primary Dx) Social History Tobacco Use Types [...] Description 02/20/2026 11:00 AM EDT Office Visit [facility] [address] [facility] 3rd Floor, [address] [place] [address] Cris Drake, CHELSIE 22 [facility], [address] [place] [address] [email or web address] documented as of this encounter Results * (ABNORMAL) PT-INR (03/19/2018 5:45 AM EDT) PT 14.3(H) 10.2 - 12.9 sec [facility] INR 1.3(H) 0.9 - 1.1 [facility] Comment:Therapeutic range fo r oral Vitamin K antagonists: 2.0-3.5 Blood 03/19/2018 5:45 AM EDT 03/19/2018 6:03 AM EDT us Taran Ortiz MD LAB BLOOD BKR ORDERABLES Final R esult [facility] [address] [place] [address] documented in this encounter Visit Diagnoses Diagnosis Atrial fibrillation, unspecified type- Primary documented in this encounter Care Teams Teacher Adventure Education Relationship Specialty Start Date End Date Jose Cruz DO [address] [place] [address] PCP - General 07/22/17 04/02/18 Andres De La Fuente DO [address] [place] [address] PCP - General Family Medicine 04/03/18 07/09/19 Fabien Yang PA [address] [place] [address] PCP - General 07/10/19 documented as of this encounter Additional Source Comments The information contained in this document represents components of the legal health record. It is not the complete legal health record.[facility]
--- OUTSIDE RECORDS SUMMARY | 2025-09-04 13:00 | XMS_ITS | Encounter Summary ---
Author Organization [facility] Address [facility] [address] [place] [address] Phone Care Team Providers Care Whizzer Operator Name Role Phone Fabien Yang Primary Care Provider + Encounter Details Date Type Department Care Team (Late st Contact Info) Description 03/20/2021 Procedure Pass [facility], Ct Scan - [address] [address] Social History Tobacco Use Types Packs/Day Years [...] on file documented as of this encounter Functional Status * Calculated C-SSRS Risk Score (Lifetime/Recent) Answer Date of Assessment Author No Risk Indicated 03/20/2021 5:28 PM EDT Karma Patel RN * Hanson Suicide Severity Rating Scale (Screener/Recent Self-Report) Question Answer Date of Assessment Author 1. Wish to be (Past 1 Month) No 03/20/2021 5:28 PM EDT Nayeli Pereyra, RN 2. Non-Specific Active Suicidal Thoughts (Past 1 Month) No 03/20/2021 5:28 PM EDT Nayeli Pereyra, RN 6. Suicidal Behavior (Lifetime) No 03/20/2021 5:28 PM EDT Nayeli Pereyra, RN documented as of this encounter Plan of Treatment Upcoming Encounters Date Type Department Care Team (Late st Contact Info) Description 02/20/2026 11:00 AM EDT Office Visit [facility] [address] [place] [address] 3rd Floor, [address] [place] [address] Cris Drake DNP 22 [facility], [address] [place] [address] [email or web address] documented as of this encounter Visit Diagnoses Not on filedocumented in this encounter Care Teams Whizzer Operator Relationship Specialty Start Date End Date Fabien Yang PA [address] [place] [address] PCP - General 07/10/19 documented as of this encounter Additional Source Comments The information contained in this document represents components of the legal health record. It is not the complete legal health record.[facility]
--- OUTSIDE RECORDS SUMMARY | 2025-09-04 13:00 | XMS_ITS | Encounter Summary ---
Author Organization [facility] Address [facility] [address] [place] [address] Phone Care Team Providers Care Broadcast Operations Engineer Name Role Phone Nancy Jose Neil DO Primary Care Provider [phone] Andres De La Fuente DO Primary Care Provider [phone] Fabien Yang Primary Care Provider + Encounter Details Date Type Department Care Team (Late st Contact Info) Description 03/25/2018 Transcribe Orders [facility] Specimen Processing [address] [place] [address] Taran Ortiz MD 38 [facility] [place] [address], [address] [place] [address] [email or web address] Atrial fibrillation, unspecified type (Primary Dx) Social [...] Description 02/20/2026 11:00 AM EDT Office Visit [facility] [address] [facility] 3rd Floor, [address] [place] [address] Cris Drake, CHELSIE 22 [facility], [address] [place] [address] [email or web address] documented as of this encounter Results * (ABNORMAL) PT-INR (03/25/2018 5:50 AM EDT) PT 15.6(H) 10.2 - 12.9 sec [facility] INR 1.4(H) 0.9 - 1.1 [facility] Comment:Therapeutic range fo r oral Vitamin K antagonists: 2.0-3.5 Blood 03/25/2018 5:50 AM EDT 03/25/2018 9:26 AM EDT us Taran Ortiz MD LAB BLOOD BKR ORDERABLES Final R esult [facility] [address] [place] [address] documented in this encounter Visit Diagnoses Diagnosis Atrial fibrillation, unspecified type- Primary documented in this encounter Care Teams Broadcast Operations Engineer Relationship Specialty Start Date End Date Jose Cruz DO [address] [place] [address] PCP - General 07/22/17 04/02/18 Andres De La Fuente DO [address] [place] [address] PCP - General Family Medicine 04/03/18 07/09/19 Fabien Yang PA [address] [place] [address] PCP - General 07/10/19 documented as of this encounter Additional Source Comments The information contained in this document represents components of the legal health record. It is not the complete legal health record.[facility]
--- OUTSIDE RECORDS SUMMARY | 2025-09-04 13:00 | XMS_ITS | Encounter Summary ---
Author Organization [facility] Address [facility] [employer] [facility] [address] [place] [address] Phone Care Team Providers Care Hall Monitor Name Role Phone Nancy Jose Neil DO Primary Care Provider [phone] Andres De La Fuente DO Primary Care Provider [phone] Fabien Yang Primary Care Provider + Encounter Details Date Type Department Care Team (Late st Contact Info) Description 03/18/2018 Transcribe Orders [facility] Specimen Processing [address] [place] [address] Taran Ortiz MD 38 [facility] [address], [address] [place] [address] [email or web address] Atrial fibrillation, unspecified type (Primary Dx); Benign prostatic hyperplasia without lower urinary tract symptoms; Alzheimer's disease with early onset (CODE) Social History Tobacco Use Types Packs/Day Years [...] Upcoming Encounters Date Type Department Care Team (Faisal st Contact Info) Description 02/20/2026 11:00 AM EDT Office Visit [facility] 22 [facility] 3rd Floor, [address] [place] [address] Cris Drake, CHELSIE 22 [facility], [address] [place] [address] [email or web address] documented as of this encounter Results * (ABNORMAL) PT-INR (03/18/2018 5:45 AM EDT) PT 13.1(H) 10.2 - 12.9 sec [facility] INR 1.2(H) 0.9 - 1.1 [facility] Comment:Therapeutic range fo r oral Vitamin K antagonists: 2.0-3.5 Blood 03/18/2018 5:45 AM EDT 03/18/2018 8:38 AM EDT us Taran Ortiz MD LAB BLOOD BKR ORDERABLES Final R esult [facility] [address] [place] [address] * (ABNORMAL) CBC (03/18/2018 5:45 AM EDT) WBC 9.95 3.40 - 11.20 K/uL [facility] RBC 4.36(L) 4.50 - 5.50 M/uL [facility] HGB 14.6 13.0 - 17.0 g/dL [facility] HCT 42.3 40.0 - 51.0 % [facility] PLT 207 130 - 400 K/uL [facility] MCV 97.0 79.0 - 98.0 fL [facility] MCH 33.5 27.0 - 34.8 pg [facility] MCHC 34.5 31.5 - 36.0 g/dL [facility] RDW 15.3(H) 10.8 - 14.6 % [facility] MPV 11.4 9.4 - 12.4 fl [facility] NRBC 0.00 /100 WBCs [facility] ABSOLUTE NRBC 0.00 K/uL [facility] Blood 03/18/2018 5:45 AM EDT 03/18/2018 8:38 AM EDT us Taran Ortiz MD LAB BLOOD BKR ORDERABLES Final R esult [facility] [address] [place] [address] * (ABNORMAL) Comprehensive metabolic panel (03/18/2018 5:45 AM EDT) SODIUM 146 133 - 146 mmol/L [facility] POTASSIUM 4.2 3.3 - 5.1 mmol/L [facility] CHLORIDE 105 96 - 108 mmol/L [facility] CO2 29 21 - 35 mmol/L [facility] BUN 19 6 - 19 mg/dL [facility] CREATININE 0.80 0.5 - 1.5 mg/dL [facility] GLUCOSE 90 70 - 99 mg/dL [facility] ALBUMIN 3.3(L) 3.9 - 4.8 g/dL [facility] TOTAL PROTEIN 5.9(L) 6.5 - 8.0 g/dL [facility] CALCIUM 8.5 8.4 - 10.3 mg/dL [facility] ALKALINE PHOSPHATASE 36(L) 39 - 117 U/L [facility] TOTAL BILIRUBIN 0.2 0.0 - 1.2 mg/dL [facility] AST 15 0 - 37 U/L [facility] ALT 18 0 - 40 U/L [facility] GLOBULIN 2.6 1 - 4.8 g/dL [facility] EGFR 92 >59 mL/min/1.7 3m2 [facility] Comment:If patient is black, multiply result by 1.159. Estimated glomerular filtration rate calculated using the CKD-EPI equation. ANION GAP 16 10 - 20 mmol/L [facility] Blood 03/18/2018 5:45 AM EDT 03/18/2018 8:38 AM EDT us Taran Ortiz MD LAB BLOOD BKR ORDERABLES Final R esult [facility] [address] [place] [address] documented in this encounter Visit Diagnoses Diagnosis Atrial fibrillation, unspecified type- Primary Benign prostatic hyperplasia without lower urinary tract symptoms Alzheimer's disease with early onset (CODE) documented in this encounter Care Teams Hall Monitor Relationship Specialty Start Date End Date Jose Cruz DO [address] [place] [address] PCP - General 07/22/17 04/02/18 Andres De La Fuente DO [address] [place] [address] PCP - General Family Medicine 04/03/18 07/09/19 Fabien Yang PA [address] [place] [address] PCP - General 07/10/19 documented as of this encounter Additional Source Comments The information contained in this document represents components of the legal health record. It is not the complete legal health record.[facility]
--- OUTSIDE RECORDS SUMMARY | 2025-09-04 13:00 | XMS_ITS | Encounter Summary ---
Author Organization [facility] Address [facility] [address] [place] [address] Phone Care Team Providers Care Automatic I Threading Machine Feeder Name Role Phone Nancy Jose Neil DO Primary Care Provider [phone] Andres De La Fuente DO Primary Care Provider [phone] Fabien Yang Primary Care Provider + Encounter Details Date Type Department Care Team (Late st Contact Info) Description 03/21/2018 Transcribe Orders [facility] Specimen Processing [address] [place] [address] Taran Ortiz MD 38 [facility] [address], [address] [place] [address] [email or web address] Atrial fibrillation, unspecified type (Primary Dx) Social [...] Description 02/20/2026 11:00 AM EDT Office Visit [facility] [address] [facility] 3rd Floor, [address] [place] [address] Cris Drake, DNP 22 [facility], [address] [place] [address] [email or web address] documented as of this encounter Results * (ABNORMAL) Basic metabolic panel (03/21/2018 5:50 AM EDT) SODIUM 143 133 - 146 mmol/L [facility] CHLORIDE 102 96 - 108 mmol/L [facility] POTASSIUM 4.9 3.3 - 5.1 mmol/L [facility] CO2 30 21 - 35 mmol/L [facility] BUN 25(H) 6 - 19 mg/dL [facility] CREATININE 0.80 0.5 - 1.5 mg/dL [facility] GLUCOSE 76 70 - 99 mg/dL [facility] CALCIUM 8.8 8.4 - 10.3 mg/dL [facility] EGFR 92 >59 mL/min/1.7 3m2 [facility] Comment:If patient is black, multiply result by 1.159. Estimated glomerular filtration rate calculated using the CKD-EPI equation. ANION GAP 16 10 - 20 mmol/L [facility] Blood 03/21/2018 5:50 AM EDT 03/21/2018 12:40 PM EDT us Taran Ortiz MD LAB BLOOD BKR ORDERABLES Final R esult [facility] [address] [place] [address] * (ABNORMAL) CBC (03/21/2018 5:50 AM EDT) WBC 9.05 3.40 - 11.20 K/uL [facility] RBC 4.53 4.50 - 5.50 M/uL [facility] HGB 15.2 13.0 - 17.0 g/dL [facility] HCT 45.5 40.0 - 51.0 % [facility] PLT 262 130 - 400 K/uL [facility] MCV 100.4(H) 79.0 - 98.0 fL [facility] MCH 33.6 27.0 - 34.8 pg [facility] MCHC 33.4 31.5 - 36.0 g/dL [facility] RDW 15.3(H) 10.8 - 14.6 % [facility] MPV 10.9 9.4 - 12.4 [facility] NRBC 0.00 /100 WBCs [facility] ABSOLUTE NRBC 0.00 K/uL [facility] Blood 03/21/2018 5:50 AM EDT 03/21/2018 12:40 PM EDT us Taran Ortiz MD LAB BLOOD BKR ORDERABLES Final R esult Performing Organization Address City/State/[facility] Co de Phone Number [address] [address] documented in this encounter Visit Diagnoses Diagnosis Atrial fibrillation, unspecified type- Primary documented in this encounter Care Teams Automatic I Threading Machine Feeder Relationship Specialty Start Date End Date Jose Cruz DO [address] [place] [address] PCP - General 07/22/17 04/02/18 Andres De La Fuente DO [address] [place] [address] PCP - General Family Medicine 04/03/18 07/09/19 Fabien Yang PA [address] [place] [address] PCP - General 07/10/19 documented as of this encounter Additional Source Comments The information contained in this document represents components of the legal health record. It is not the complete legal health record.[facility]
--- OUTSIDE RECORDS SUMMARY | 2025-09-04 13:00 | XMS_ITS | Encounter Summary ---
Author Organization [facility] Address [address] [facility] [address] [place] [address] Phone Care Team Providers Care Manufacturing Systems Engineer Name Role Phone Fabien Yang Primary Care Provider + Encounter Details Date Type Department Care Team (Late st Contact Info) Description 01/26/2022 Procedure Pass [facility] [place] [place] [address] Social History Tobacco Use Types Packs/Day Years [...] Description 02/20/2026 11:00 AM EDT Office Visit [facility] [address] [place] [address] 3rd Floor, [address] [place] [address] Cris Drake DNP 22 [facility], [address] [place] [address] [email or web address] documented as of this encounter Visit Diagnoses Not on filedocumented in this encounter Care Teams Manufacturing Systems Engineer Relationship Specialty Start Date End Date Fabien Yang PA [address] [place] [address] PCP - General 07/10/19 documented as of this encounter Additional Source Comments The information contained in this document represents components of the legal health record. It is not the complete legal health record.[facility]
--- OUTSIDE RECORDS SUMMARY | 2025-09-04 13:00 | XMS_ITS | Encounter Summary ---
Author Organization [facility] Address [address] [place] [address] Phone Care Team Providers Care Cycle Director Name Role Phone Fabien Yang Primary Care Provider + Encounter Details Date Type Department Care Team (Late st Contact Info) Description 05/17/2025 Procedure Pass Echo Lab [place] [place] [address] Social History Tobacco Use Types Packs/Day Years Used Date Smoking Tobacco: Never Smokeless Tobacco: Never Comments:lives with a smoker Alcohol Use Standard Drinks/Week Comments Yes 7 (1 standard drink = 0.6 oz pur e alcohol) at most usually less Education Answer Date Recorded Are you interested in more education? Not on nicole e 01/29/2023 Are you concerned about learning? Not on file 01/29/2023 No 01/29/2023 No 01/29/2023 Digital Access Answer Date Recorded No 02/27/2023 No 02/27/2023 Reliable internet access at home? Not on file 02/27/2023 Device with a working camera? Not on file Sex and Gender Information Value Date Recorded Sex Assigned at Male 03/20/2021 5:28 PM EDT Legal Sex Male 10:02 PM EDT Gender Identity Male 03/20/2021 5:28 PM EDT Sexual Orientation Not on file documented as of this encounter Plan of Treatment Upcoming Encounters Date Type Department Care Team (Late st Contact Info) Description 02/20/2026 11:00 AM EDT Office Visit [facility] [address] [facility] 3rd Floor, [address] [place] [address] Cris Drake DNP 22 [facility], [address] [place] [address] [email or web address] documented as of this encounter Visit Diagnoses Not on filedocumented in this encounter Care Teams Cycle Director Relationship Specialty Start Date End Date Fabien Yang PA [facility] [place] [address] PCP - General 07/10/19 documented as of this encounter Additional Source Comments The information contained in this document represents components of the legal health record. It is not the complete legal health record.[facility]
--- OUTSIDE RECORDS SUMMARY | 2025-09-04 13:00 | XMS_ITS | Encounter Summary ---
Author Organization [facility] Address [facility] [facility] [address] [place] [address] Phone Care Team Providers Care Pediatric Physiatrist Name Role Phone Nancy Jose Neil DO Primary Care Provider [phone] Andres De La Fuente DO Primary Care Provider [phone] Fabien Yang Primary Care Provider + Encounter Details Date Type Department Care Team (Late st Contact Info) Description 03/23/2018 Transcribe Orders [facility] Specimen Processing 30 [place] [address] Taran Ortiz MD [address] [facility] [address], [address] [place] [address] [email or web address] Atrial fibrillation, unspecified type (Primary Dx) Social [...] Description 02/20/2026 11:00 AM EDT Office Visit [facility] [address] [facility] 3rd Floor, [address] [place] [address] Cris Drake, CHELSIE 22 [facility], [address] [place] [address] [email or web address] documented as of this encounter Results * (ABNORMAL) PT-INR (03/23/2018 5:55 AM EDT) PT 16.8(H) 10.2 - 12.9 sec [facility] INR 1.5(H) 0.9 - 1.1 [facility] Comment:Therapeutic range fo r oral Vitamin K antagonists: 2.0-3.5 Blood 03/23/2018 5:55 AM EDT 03/23/2018 7:48 AM EDT us Taran Ortiz MD LAB BLOOD BKR ORDERABLES Final R esult [facility] [address] [place] [address] documented in this encounter Visit Diagnoses Diagnosis Atrial fibrillation, unspecified type- Primary documented in this encounter Care Teams Pediatric Physiatrist Relationship Specialty Start Date End Date Jose Cruz DO [address] [place] [address] PCP - General 07/22/17 04/02/18 Andres De La Fuente DO [address] [place] [address] PCP - General Family Medicine 04/03/18 07/09/19 Fabien Yang PA [address] [place] [address] PCP - General 07/10/19 documented as of this encounter Additional Source Comments The information contained in this document represents components of the legal health record. It is not the complete legal health record.[facility]
--- OUTSIDE RECORDS SUMMARY | 2025-09-04 13:01 | XMS_ITS | Encounter Summary ---
Author Organization [facility] Address [facility] [address] [place] [address] Phone Care Team Providers Care Gel Coat Sprayer Name Role Phone Jose Cruz DO Primary Care Provider [phone] Andres De La Fuente DO Primary Care Provider [phone] Fabien Yang Primary Care Provider + Encounter Details Date Type Department Care Team (Late st Contact Info) Description 04/01/2018 Transcribe Orders [facility] Specimen Processing [address] [place] [address] Taran Ortiz MD 38 [facility] [address], [address] [place] [address] [email or web address] Encounter for monitoring coumadin therapy (Primary Dx) Social History Tobacco Use Types [...] Description 02/20/2026 11:00 AM EDT Office Visit [facility] [address] [facility] 3rd Floor, [address] [place] [address] Cris Drake, CHELSIE 22 [facility], [address] [place] [address] [email or web address] documented as of this encounter Results * (ABNORMAL) PT-INR (04/01/2018 5:40 AM EDT) PT 28.5(H) 10.2 - 12.9 sec [facility] INR 2.5(H) 0.9 - 1.1 [facility] Comment:Therapeutic range fo r oral Vitamin K antagonists: 2.0-3.5 Blood 04/01/2018 5:40 AM EDT 04/01/2018 8:46 AM EDT us Taran Ortiz MD LAB BLOOD BKR ORDERABLES Final R esult [facility] [address] [place] [address] documented in this encounter Visit Diagnoses Diagnosis Encounter for monitoring Coumadin therapy- Primary documented in this encounter Care Teams Gel Coat Sprayer Relationship Specialty Start Date End Date Jose Cruz DO [address] [place] [address] PCP - General 07/22/17 04/02/18 Andres De La Fuente DO [address] [place] [address] PCP - General Family Medicine 04/03/18 07/09/19 Fabien Yang PA [address] [place] [address] PCP - General 07/10/19 documented as of this encounter Additional Source Comments The information contained in this document represents components of the legal health record. It is not the complete legal health record.[facility]
--- OUTSIDE RECORDS SUMMARY | 2025-09-04 13:01 | XMS_ITS | Encounter Summary ---
Author Organization [facility] Address [facility] [address] [place] [address] Phone Care Team Providers Care Bookstore Manager Name Role Phone Andres De La Fuente DO Primary Care Provider [phone] Fabien Yang Primary Care Provider + Encounter Details Date Type Department Care Team (Late st Contact Info) Description 04/04/2018 Transcribe Orders [facility] Specimen Processing [address] [place] [address] Taran Ortiz MD 38 [facility] [address], [address] [place] [address] [email or web address] Atrial fibrillation, unspecified type (Primary Dx) Social [...] Description 02/20/2026 11:00 AM EDT Office Visit [facility] [address] [facility] 3rd Floor, [address] [place] [address] Cris Drake, CHELSIE 22 [facility], [address] [place] [address] [email or web address] documented as of this encounter Results * (ABNORMAL) PT-INR (04/04/2018 6:00 AM EDT) PT 35.0(H) 10.2 - 12.9 sec [facility] INR 3.1(H) 0.9 - 1.1 [facility] Comment:Therapeutic range fo r oral Vitamin K antagonists: 2.0-3.5 Blood 04/04/2018 6:00 AM EDT 04/04/2018 9:58 AM EDT us Taran Ortiz MD LAB BLOOD BKR ORDERABLES Final R esult [facility] [address] [place] [address] * (ABNORMAL) CBC (04/04/2018 6:00 AM EDT) WBC 9.69 3.40 - 11.20 K/uL [facility] RBC 4.50 4.50 - 5.50 M/uL [facility] HGB 15.0 13.0 - 17.0 g/dL [facility] HCT 44.2 40.0 - 51.0 % [facility] PLT 247 130 - 400 K/uL [facility] MCV 98.2(H) 79.0 - 98.0 fL [facility] MCH 33.3 27.0 - 34.8 pg [facility] MCHC 33.9 31.5 - 36.0 g/dL [facility] RDW 15.0(H) 10.8 - 14.6 % [facility] MPV 10.8 9.4 - 12.4 fl [facility] NRBC 0.00 /100 WBCs [facility] ABSOLUTE NRBC 0.00 K/uL [facility] Blood 04/04/2018 6:00 AM EDT 04/04/2018 9:58 AM EDT us Taran Ortiz MD LAB BLOOD BKR ORDERABLES Final R esult Performing Organization Address City/[facility]/ZIP Co de Phone Number [address] [address] * Basic metabolic panel (04/04/2018 6:00 AM EDT) SODIUM 143 133 - 146 mmol/L [facility] CHLORIDE 103 96 - 108 mmol/L [facility] POTASSIUM 4.6 3.3 - 5.1 mmol/L [facility] CO2 29 21 - 35 mmol/L [facility] BUN 17 6 - 19 mg/dL [facility] CREATININE 0.80 0.5 - 1.5 mg/dL [facility] GLUCOSE 73 70 - 99 mg/dL [facility] CALCIUM 9.0 8.4 - 10.3 mg/dL [facility] EGFR 92 >59 mL/min/1.7 3m2 [facility] Comment:If patient is black, multiply result by 1.159. Estimated glomerular filtration rate calculated using the CKD-EPI equation. ANION GAP 16 10 - 20 mmol/L [facility] Blood 04/04/2018 6:00 AM EDT 04/04/2018 9:58 AM EDT us Taran Ortiz MD LAB BLOOD BKR ORDERABLES Final R esult [address] [address] documented in this encounter Visit Diagnoses Diagnosis Atrial fibrillation, unspecified type- Primary documented in this encounter Care Teams Bookstore Manager Relationship Specialty Start Date End Date Andres De La Fuente DO PCP - General Family Medicine 04/03/18 07/09/19 Fabien Yang PA [address] [place] [address] PCP - General 07/10/19 documented as of this encounter Additional Source Comments The information contained in this document represents components of the legal health record. It is not the complete legal health record.[facility]
--- OUTSIDE RECORDS SUMMARY | 2025-09-04 13:01 | XMS_ITS | Encounter Summary ---
Author Organization [facility] Address [address] [place] [phone] Care Team Providers Care Felt Hat Inspector And Packer Name Role Phone No, Pcp (Do Not Change Name) Primary Care Provid er Unavailable Encounter Details Date Type Department Care Team ([facility] st Contact Info) Description 01/17/2021 Scanned Document INTERFACE DEFAULT [address] [place] [address] System, Provider Not In Social History Tobacco [...] on filedocumented in this encounter Care Teams Felt Hat Inspector And Packer Relationship Specialty Start Date End Date No, Pcp (Do Not Change Name) PCP - General 12/21/19 documented as of this encounter
--- OUTSIDE RECORDS SUMMARY | 2025-09-04 13:01 | XMS_ITS | Encounter Summary ---
Author Organization [facility] Address [facility] [address] [place] [address] Phone Care Team Providers Care Radar Systems Engineer Name Role Phone Nancy Jose Neil DO Primary Care Provider [phone] Andres De La Fuente DO Primary Care Provider Fabien Yang Primary Care Provider + Encounter Details Date Type Department Care Team (Late st Contact Info) Description 03/28/2018 Transcribe Orders [facility] Specimen Processing [address] [place] [address] Taran Ortiz MD 38 [facility] [address], [address] [place] [address] [email or web address] Atrial fibrillation, unspecified type (Primary Dx); Dementia without behavioral disturbance, unspecified dementia type Social History Tobacco Use Types Packs/Day Years [...] Description 02/20/2026 11:00 AM EDT Office Visit [facility] [address] [facility] 3rd Floor, [address] [place] [address] Cris Drake, CHELSIE 22 [facility], [address] [place] [address] [email or web address] documented as of this encounter Results * (ABNORMAL) PT-INR (03/28/2018 5:45 AM EDT) [facility] PT 22.0(H) 10.2 - 12.9 sec [facility] INR 1.9(H) 0.9 - 1.1 [facility] Comment:Therapeutic range fo r oral Vitamin K antagonists: 2.0-3.5 Blood 03/28/2018 5:45 AM EDT 03/28/2018 10:32 AM EDT us Taran Ortiz MD LAB BLOOD BKR ORDERABLES Final R esult [facility] [address] [place] [address] * (ABNORMAL) CBC (03/28/2018 5:45 AM EDT) [facility] WBC 10.24 3.40 - 11.20 K/uL [facility] RBC 4.61 4.50 - 5.50 M/uL [facility] HGB 15.2 13.0 - 17.0 g/dL [facility] HCT 45.2 40.0 - 51.0 % [facility] PLT 339 130 - 400 K/uL [facility] MCV 98.0 79.0 - 98.0 fL [facility] MCH 33.0 27.0 - 34.8 pg [facility] MCHC 33.6 31.5 - 36.0 g/dL [facility] RDW 14.7(H) 10.8 - 14.6 % [facility] MPV 10.5 9.4 - 12.4 fl [facility] NRBC 0.00 /100 WBCs [facility] ABSOLUTE NRBC 0.00 K/uL [facility] Blood 03/28/2018 5:45 AM EDT 03/28/2018 10:32 AM EDT us Taran Ortiz MD LAB BLOOD BKR ORDERABLES Final R esult [address] [address] * Basic metabolic panel (03/28/2018 5:45 AM EDT) SODIUM 144 133 - 146 mmol/L [facility] CHLORIDE 103 96 - 108 mmol/L [facility] POTASSIUM 4.6 3.3 - 5.1 mmol/L [facility] CO2 28 21 - 35 mmol/L [facility] BUN 17 6 - 19 mg/dL [facility] CREATININE 0.70 0.5 - 1.5 mg/dL [facility] GLUCOSE 76 70 - 99 mg/dL [facility] CALCIUM 8.8 8.4 - 10.3 mg/dL [facility] EGFR 98 >59 mL/min/1.7 3m2 [facility] Comment:If patient is black, multiply result by 1.159. Estimated glomerular filtration rate calculated using the CKD-EPI equation. ANION GAP 18 10 - 20 mmol/L [facility] Blood 03/28/2018 5:45 AM EDT 03/28/2018 10:32 AM EDT us Taran Ortiz MD LAB BLOOD BKR ORDERABLES Final R esult Performing Organization Address City/[facility]/ZIP Co de Phone Number [address] [address] documented in this encounter Visit Diagnoses Diagnosis Atrial fibrillation, unspecified type- Primary Dementia without behavioral disturbance, unspecified dementia type documented in this encounter Care Teams Radar Systems Engineer Relationship Specialty Start Date End Date Jose Cruz DO [address] [place] [address] PCP - General 07/22/17 04/02/18 Andres De La Fuente DO [address] [place] [address] PCP - General Family Medicine 04/03/18 07/09/19 Fabien Yang PA [address] [place] [address] PCP - General 07/10/19 documented as of this encounter Additional Source Comments The information contained in this document represents components of the legal health record. It is not the complete legal health record.[facility]
--- OUTSIDE RECORDS SUMMARY | 2025-09-04 13:01 | XMS_ITS | Clinical Summary ---
Author Organization [facility] Address [address] [place] [address] Phone Care Team Providers Care Welcome Hostess Name Role Phone Fabien Yang Primary Care Provider + Allergies Active Allergy Reactions Criticality Noted Date Comments Cat Hair Standardized Allergenic Extract 02/18/2018 Other 03/31/2023 Medications finasteride (PROSCAR) 5 mg tablet Take 5 mg by mouth daily. Active donepeziL (ARICEPT) 10 MG tablet Take 10 mg by mouth nightly. Active cyanocobalamin , vitamin B-12, 1000 MCG tablet Take 1,000 mcg by mouth daily. Twice a week Active simvastatin (ZOCOR) 20 MG tablet Take 20 mg by mouth nightly. Active magnesium 250 mg Tab Take 1 tablet by mouth daily. Active memantine (NAMENDA XR) 28 mg 24 hr sprinkle capsule 02/17/20 23 Active Medication-Pramod e Text Is on medication trial for Band 2401 for alzheimers trial Active albuterol 90 mcg/actuation inhaler Inhale 1 puff into the lungs as needed. 02/22/20 24 Active XARELTO 20 mg TabIndications :Medication refill TAKE ONE TABLET BY MOUTH EVERY DAY WITH DINNER 90 tablet 3 08/22/20 25 Active gabapentin 300 mg Tb24 Take 1 tablet by mouth nightly. 025 Discontinued(Er ror) rivaroxaban (XARELTO) 20 mg TabIndications :Medication refill Take 1 tablet (20 mg total) by mouth daily with dinner. 90 tablet 5 05/25/20 24 025 Discontinued Active Problems Problem Noted Date Diagnosed Date Obesity (BMI 30-39.9) 10/09/2020 Assessment & Plan (11/01/2023 3:33 PM EST): He does not exercise. He does have Alzheimer's and is pretty sedentary and does sleep a lot question of whether this is medication however he is encouraged to follow her healthy diet and to stay active. Assessment & Plan (08/03/2022 1:55 PM EDT): He has been eating nonstop per his and he has lost about 3 pounds over several months. Will defer to PCP for weight loss if this continues. There is no cardiovascular reason to explain his weight loss at this time. Assessment & Plan (10/09/2020 10:23 AM EST): BMI of 32 Discussed importance of leading heart healthy lifestyle with regular exercise of 30 minutes daily, Mediterranean diet, restriction of sodium intake, and maintenance of ideal body weight. History of DVT (deep vein thrombosis) 08/11/2018 Other hyperlipidemia 08/11/2018 Assessment & Plan (08/23/2025 12:54 PM EST): Continue simvastatin 20 mg daily. PCP is monitoring cholesterol Assessment & Plan (11/01/2023 3:33 PM EST): Continue simvastatin 20 mg daily. Assessment & Plan (08/03/2022 1:54 PM EDT): Continue simvastatin 20mg daily Pre-operative cardiovascular examination 018 Assessment & Plan (02/18/2018 3:28 PM EDT): As mentioned above, we are recommending bridging with Lovenox in light of his history of recurrent DVT. We do have on record that he has a history of PE but the patient and his adamantly deny this. He does not require any cardiac testing prior to his upcoming procedure. Would resume anticoagulation as soon as it is safe to do so per the recommendation of the orthopedist. We do recommend Lovenox postoperatively as well until the patient's INR is therapeutic. Chronic atrial fibrillation 12/01/2017 Assessment & Plan (08/23/2025 12:54 PM EST): Continues to deny symptoms for atrial fibrillation. He is anticoagulated on Xarelto 20 mg daily which he will continue without change. He is on no AV luca blockers. Assessment & Plan (11/01/2023 3:32 PM EST): Denies symptoms for atrial fibrillation. He is rate controlled without any AV luca blockers. He is on Xarelto 20 mg daily for anticoagulation which she will remain on without change. Assessment & Plan (08/03/2022 1:53 PM EDT): He is asymptomatic, He is on no AV luca blockers his heart rate is 52bpm here in the office. He is on coumadin for anticoagulation which he will Remain on his medication without change. 06/19/2022 echocardiogram EF 55-60%. Diastolic function was unable to be assessed due to the presence of atrial fibrillation. There is mild aortic regurgitation. There is mild mitral regurgitation. No prior echo for comparison. Assessment & Plan (10/09/2020 10:21 AM EST): Intrinsically rate controlled. Anticoagulated with Coumadin managed by [facility]. [id number] score of 3 (history of DVT/PE and age) Assessment & Plan (02/18/2018 3:26 PM EDT): He has chronic atrial fibrillation. He is appropriately anticoagulated on Coumadin. He also has a history of recurrent DVT. He is here today for preoperative cardiac risk assessment. We are recommending that he be bridged with Lovenox to reduce the risk for embolism. His Coumadin is managed by his PCP office, Dr. Cruz. I will forward this recommendation to Dr. Cruz's office. History of pulmonary embolism 12/01/2017 Obstructive sleep apnea of adult 12/01/2017 Assessment & Plan (10/09/2020 10:21 AM EST): Patient reports nightly use of at least 6 to 8 hours per night. Follows with [facility] sleep medicine. Assessment & Plan (02/18/2018 3:26 PM EDT): He is being treated for his sleep apnea. His fatigue is much better. Encounters Date Type Department Care Team Description 08/23/2025 12:30 PM EST Office Visit [facility] [address] [facility], [address] [place] [address] Cris Drake DNP Chronic atrial fibrillation (Primary Dx); Other hyperlipidemia 08/21/2025 Refill [facility] [address] [facility], [address] [place] [address] Kameron Richardson MD Medication Refill 07/25/2025 9:22 AM EDT - 07/25/2025 11:59 PM EDT Hospital Encounter Echo Lab [address] [place] [address] Kameron Richardson MD Discharge Disposition: Home or Self Care 07/04/2025 Telephone [facility] [address] 3[address], [address] [place] [address] Eliza Charles 05/17/2025 Procedure Pass Echo Lab [address] [place] [address] from Last 3 Months Immunizations Immunization Administration Dates Next Due COVID-19 (Pre-07/26) Pfizer Vaccine, mRNA, PF 12/09/2020,11/17/2020 INFLUENZA, SPLIT VIRUS, TRIV ALENT W/ PRESERVATIVE IM 08/23/2015 Influenza High-Dose Trivalen t Preservative Free IM 11/27/2019,07/16/2019,12/14/2018,06/15,09/03/2016 Influenza Quadrivalent Adjuv anted Preservative Free IM 07/29/2020 Pneumococcal polysaccharide PPSV23 12/14/2018 Tdap 12/14/2018 Family History Medical History Relation Comments Heart disease Father Relation Status Comments Father Social History Tobacco Use Types Packs/Day Years [...] PM EDT Sexual Orientation Not on file Last Filed Vital Signs Vital Sign Reading Time Taken Comments Blood Pressure 114/64 08/23/2025 12:20 PM EST Pulse 45 08/23/2025 12:20 PM EST Temperature 36.2 C (97.2 F) 06/24/2021 1:00 PM EDT Respiratory Rate 12 06/24/2021 12:30 PM EDT Oxygen Saturation 95% 08/23/2025 12:20 PM EST Inhaled Oxygen Concentration - - Weight 101.2 kg (223 lb) 08/23/2025 12:20 PM EST Height 177.8 cm (5' 10 ) 08/23/2025 12:20 PM EST Body Mass Index 32 08/23/2025 12:20 PM EST Plan of Treatment Upcoming Encounters Date Type Department Care Team (Late st Contact Info) Description 02/20/2026 11:00 AM EDT Office Visit [facility] [address] [facility] 3rd Floor, [address] [place] [address] Cris Drake, CHELSIE [address] [facility], [address] [place] [address] Health Maintenance Due Date Last Done Comments DEPRESSION SCREENING 1962 COLOGUARD 1995 COLONOSCOPY 1995 COLORECTAL CANCER SCREENING 1995 FIT TEST 1995 FOBT 1995 SIGMOIDOSCOPY 1995 VIRTUAL COLONOSCOPY 1995 ZOSTER VACCINES (1 of 2) 2000 PNEUMOCOCCAL VACCINES (50+ years) (2 of 2 - PCV) 12/15/2019 12/14/2018 INFLUENZA VACCINE (#1) 2025 3, 08/14/2022, 07/16/2021, Additional history exists COVID-19 VACCINE (3 - 2024- season) 2025 12/09/2020, 11/17/2020 RSV VACCINE (1 - 1-dose 75+ series) 2025 CREATININE LEVEL 05/11/2026 05/11/2025, 05/2022, 03/20/2021, Additional history exists Adult Td,Tdap Booster 12/14/2028 12/14/2018, 014 LIPID PANEL 05/11/2030 05/11/2025, 07/0 05/2022, 12/17/2020, Additional history exists HEPATITIS C SCREENING Completed 12/24/2018 SMOKING STATUS SCREENING (Once After 26 Yrs) Completed 08/23/2025 HEPATITIS A VACCINES Aged Out No long er eligible based on patient's age to complete this topic HIB VACCINES Aged Out No longer eligi ble based on patient's age to complete this topic MENINGOCOCCAL VACCINES (ACWY) Aged Out No longer eligible based on patient's age to complete this topic MENINGOCOCCAL VACCINES (B) Aged Out N o longer eligible based on patient's age to complete this topic Medical Devices Implanted Type Area Allergist/Md Device Identifier Shelf Expiration Date Model / Serial / Lot Filter Filter Vena Cava Pin Pin Right: Ankle Mesh Graft 1.6x1.9in 4.1 4.8cm Lg Perfix Polypropylene Monofilament Plug Inguinal Hernia Soft Tissue Repair Cs/2ea - [id number] Implanted:Qty: 1 on 06/24/2021 by Linda Mobley MD at [facility] STANDARD Right: Groin DAVOL 01/29/2026 [id number] / / [id number] Procedures Procedure Name Priority Date/Time Associated Diagnosis Comments TTE COMPREHENSIVE Routine 07/25/2025 10: 21 AM EDT Shortness of breath LIPID PANEL Routine 05/11/2025 10:51 AM EDT Other hyperlipidemia COMPREHENSIVE METABOLIC PANEL (CMP) Routine 05/11/2025 10:51 AM EDT Other hyperlipidemia from Last 3 Months or Most Recently Relevant to Health Maintenance Results * TTE COMPREHENSIVE (07/25/2025 10:21 AM EDT) Height 178 cm Weight 98 kg Systolic BP 124 mmHg Diastolic BP 56 mmHg Interventricular Septum Thickness 11 6 - 11 mm Left Ventricle Internal Diameter End Diastole 50 42 - 58 mm Left Ventricle Internal Diameter End Systole 30 <40 mm Left Ventricular Outflow Tract Diameter 22.0 mm Left Ventricular Posterior Wall Thickness 12 6 - 11 mm Ejection Fraction 78 50 - 75 Percent Left Atrium Dimension Anterior-Posterior 47 15 - 40 mm Aortic Valve Mean Gradient 4 mmHg Aortic Valve Time Velocity Integral 283.0 mm Aortic Valve Peak Velocity 1.4 m/s Aortic Valve Peak Gradient 7 mmHg Aortic Arch Diameter 30 mm Aortic Sinus Diameter 42 <40 mm Ascending Aorta Diameter 41 <36 mm Inferior Vena Cava Diameter 17 <21 mm Pulmonary Valve Peak Velocity 0.8 m/s Pulmonary Valve Peak Gradient 3 mmHg Right Ventricle Basal Diameter 55 25 - 41 mm Tricuspid Valve Peak Velocity 2.1 m/s Raw LV EF% 64 % Relative Wall Thickness 0.48 0.22 - 0.42 Aortic Valve Prosthetic Peak Gradient 7 mmHg Aorta Sinus Index by Height 2.36 cm/m Aorta Sinus CSA index by Height 7.78 cm2/m Asc Aorta CSA Index by Height 7.41 cm2/m Right Ventricle to Right Atrium Pressure Gradient 18 mmHg Right Ventricle Peak Systolic Pressure (Assuming RAP 10) 28 mmHg MGB CV ECHO TV RVSP (ASSUMING RAP OF 5) 23 mmHg RVSP (Exclusive of RAP) 18 mmHg Pulmonic Valve Prosthetic Peak Gradient 3 mmHg Body Surface Area 2.16 m2 Left Ventricle indexed to BSA 102.0 g/m2 Left Ventricular Outflow Tract Velocity 1.0 m/s Aortic Valve Prosthetic Mean Gradient 4 mmHg LVOT VTI REST 18.0 cm Aortic Valve Sinus Index by BSA 19 mm/m2 Ascending Aorta Index 19 mm/m2 MGB CV AV DIMENSIONLESS INDEX (PEAK) - STRESS ECHO DOBUT - REST 0.71 Ascending Aorta Index 19 mm Aortic Sinus Index 19 mm Ascending Aorta Diameter 19 mm Aortic Valve Sinus Index 1 19 20 - 32 mm AO ASC DIAM BSA INDEX 18.98 Left Atrial Volume Index 63 16 - 34 mL/m2 Left Atrial Volume 135 mL Left Atrial Volume Index by Height 76 mL/m Right Atrium Area 35 cm2 Right Atrium Area index 16 cm2/m2 Anatomical Region Laterality Modality Heart Ultrasound Narrative 07/26/2025 9:01 AM EDT Images from the original result were not included. Mild LVH with normal LV size and function EF 55 to 60%. Aortic root is mildly dilated measuring 4.2 cm ascending aorta 4.1 cm. RV measures moderately dilated but RV function looks grossly normal. PA pressure estimation within normal limits at 21 mmHg. Moderate left atrial enlargement. Trace mitral regurgitation. Mild aortic insufficiency. Compared to prior study from 2021, no real significant change. Left Ventricle The left ventricle is normal in size. There is mild concentric hypertrophy. There is normal left ventricular systolic function. The LV ejection fraction is 55-60% (visually estimated). LV diastolic function was not assessed. Right Ventricle The right ventricle is moderately dilated. There is normal right ventricular systolic function. Left Atrium The left atrium is moderately dilated. Right Atrium The right atrium is severely dilated. The IVC is normal in size with normal inspiratory collapse. Mitral Valve The mitral valve appears normal. There is no mitral stenosis. There is trace to mild mitral regurgitation. Tricuspid Valve The tricuspid valve appears normal. There is no tricuspid stenosis. There is trace tricuspid regurgitation. Aortic Valve The aortic valve is tricuspid. There is no aortic stenosis. The aortic valve peak velocity is 1.4 m/s. The peak and mean aortic valve gradients are 7 mmHg and 4 mmHg respectively. There is mild aortic regurgitation. The aortic sinuses are dilated. The ascending aorta is dilated. Pulmonic Valve The pulmonic valve appears normal. There is no pulmonic stenosis. There is trace pulmonic regurgitation. Pericardium There is no pericardial effusion. General Findings The image quality was fair (3). Technique(s) used in the evaluation: Multiplane, Color flow Doppler, Spectral Doppler and Epiaortic scan. IAS/IVS The interatrial septum appears normal. There is no evidence of patent foramen ovale (PFO). The interventricular septum appears normal. us Kameron Richardson MD CV ECHO ORDERABLES Final Re sult * (ABNORMAL) Comprehensive metabolic panel (05/11/2025 10:51 AM EDT) SODIUM 143 133 - 146 mmol/L [facility] POTASSIUM 4.4 3.3 - 5.1 mmol/L [facility] CHLORIDE 107 96 - 108 mmol/L [facility] CO2 25 21 - 35 mmol/L [facility] BUN 27(H) 6 - 19 mg/dL [facility] CREATININE 0.80 0.5 - 1.5 mg/dL [facility] GLUCOSE 110(H) 70 - 99 mg/dL [facility] ALBUMIN 4.0 3.9 - 4.8 g/dL [facility] TOTAL PROTEIN 6.9 6.5 - 8.0 g/dL [facility] CALCIUM 9.3 8.4 - 10.3 mg/dL [facility] ALKALINE PHOSPHATASE 46 39 - 117 U/L [facility] TOTAL BILIRUBIN 0.7 0.0 - 1.2 mg/dL [facility] AST 24 0 - 37 U/L [facility] ALT 17 0 - 40 U/L [facility] GLOBULIN 2.9 1 - 4.8 g/dL [facility] EGFR 93 >59 mL/min/1.7 3m2 [facility] Comment:Estimated glomerular filtration rate calculated using the CKD-EPI refit equation. ANION GAP 15 10 - 20 mmol/L [facility] Blood 05/11/2025 10:5 1 AM EDT 05/11/2025 11:00 AM EDT us Kameron Richardson MD LAB BLOOD BKR ORDERABLES Fi nal Result [address] [address] * (ABNORMAL) Lipid panel (05/11/2025 10:51 AM EDT) HDL 50 mg/dL [facility] Comment: Interpretation <40 mg/dL: Low HDL cholesterol (major risk factor for CHD) Greater than or equal to 60 mg/dL: High HDL cholesterol ( negative risk factor for CHD) HDL - cholesterol is affected by a number of factors, e.g. smoking, excerise, hormones, sex and age. CHOLESTEROL 145 0 - 240 mg/dL [facility] TRIGLYCERIDES 111 30 - 160 mg/dL [facility] LDL 73 50 - 129 mg/dL [facility] Comment: LDL levels in terms of risk for coronary heart disease: <100 mg/dL: Optimal 100-129 mg/dL: Near or above optimal 130-159 mg/dL: Borderline high 160-189 mg/dL: High >190 mg/dL: Very High CARDIAC RISK RATIO 2.9(L) 3.4 - 5.0 [facility] Blood 05/11/2025 10:5 1 AM EDT 05/11/2025 11:00 AM EDT us Kameron Richardson MD LAB BLOOD BKR ORDERABLES Fi nal Result [address] [address] from Last 3 Months or Most Recently Relevant to Health Maintenance Insurance MEDICARE PART A & B [facility]IC[facility] SUPPLEMENT MEDICARE PART A & B [employer] MEDICARE SUPPLEMENT MEDICARE PART A & B [facility] MEDICARE SUPPLEMENT MEDICARE PART A & B [facility] MEDICARE SUPPLEMENT MEDICARE PART A & B [facility] MEDICARE SUPPLEMENT MEDICARE PART A & B [facility] MEDICARE SUPPLEMENT MEDICARE PART A & B [employer] MEDICARE SUPPLEMENT MEDICARE PART A & B [employer] MEDICARE SUPPLEMENT MEDICARE PART A & B [facility] EXTENSION MEDICARE SUPPLEMENT Advance Directives For more information, please contact: [phone] (9AM - 5PM [facility], Wednesday-Wednesday) * Full Code (Latest Code Status on File) Date Activated Date Inactivated Comments 06/24/2021 7:09 AM Question Answer Comments Code Status Confirmed With: Patient Care Teams Welcome Hostess Relationship Specialty Start Date End Date Fabien Yang PA [address] [place] [address] PCP - General 07/10/19 Additional Source Comments The information contained in this document represents components of the legal health record. It is not the complete legal health record.[facility]
--- OUTSIDE RECORDS SUMMARY | 2025-09-04 13:01 | XMS_ITS | Encounter Summary ---
Author Organization [facility] Address [facility]ly [facility] [employer] [facility] [address] [place] [phone] Phone Care Team Providers Care Supervisor Chassis Assembly Name Role Phone SudhakarAndres Primary Care Provider [phone] Fabien Yang Primary Care Provider + Encounter Details Date Type Department Care Team (Latest Contact Info) Description 05/13/2018 Transcribe Orders [facility] Specimen Processing [address] [place] [address] Jose Cruz DO [address] [place] [address] Encounter for monitoring coumadin therapy (Primary Dx) [...] Description 02/20/2026 11:00 AM EDT Office Visit [facility] [address] [facility] 3rd Floor, [address] [place] [address] Cris Drake DNP [address] [facility], [address] [place] [address] [email or web address] documented as of this encounter Results * (ABNORMAL) PT-INR (05/13/2018 12:05 PM EDT) PT 32.0(H) 10.2 - 12.9 sec [facility] INR 2.9(H) 0.9 - 1.1 [facility] Comment:Therapeutic range fo r oral Vitamin K antagonists: 2.0-3.5 Blood 05/13/2018 12:0 5 PM EDT 05/13/2018 1:09 PM EDT Jose Cruz DO LAB BLOOD BKR ORDERABLES F inal Result [facility] [address] [place] [address] documented in this encounter Visit Diagnoses Diagnosis Encounter for monitoring Coumadin therapy- Primary documented in this encounter Care Teams Supervisor Chassis Assembly Relationship Specialty Start Date End Date Andres De La Fuente DO PCP - General Family Medicine 04/03/18 07/09/19 Fabien Yang PA [address] [place] [id number] PCP - General 07/10/19 documented as of this encounter Additional Source Comments The information contained in this document represents components of the legal health record. It is not the complete legal health record.[facility]
--- OUTSIDE RECORDS SUMMARY | 2025-09-04 13:01 | XMS_ITS | Encounter Summary ---
Author Organization [facility] Address [facility] [address] [address] Phone Care Team Providers Care Wastewater Supervisor Name Role Phone Andres De La Fuente Primary Care Provider [phone] Fabien Yang Primary Care Provider + Encounter Details Date Type Department Care Team (Late st Contact Info) Description 06/13/2018 Transcribe Orders [address] [address] System, Provider Not In, [facility] [address] [address] Other abnormal glucose (Primary Dx); Pure hypercholesterolemia ; Atrial fibrillation, unspecified type Social History Tobacco Use Types Packs/Day [...] Description 02/20/2026 11:00 AM EDT Office Visit [facility] [address] [facility] 3rd Floor, [address] [place] [address] Cris Drake, CHELSIE [address] [facility], [address] [place] [address] [email or web address] documented as of this encounter Results * (ABNORMAL) CBC and differential (06/13/2018 9:28 AM EDT) WBC 9.54 3.40 - 11.20 K/uL [facility] RBC 5.00 4.50 - 5.50 M/uL [facility] HGB 16.2 13.0 - 17.0 g/dL [facility] HCT 47.6 40.0 - 51.0 % [facility] PLT 278 130 - 400 K/uL [facility] MCV 95.2 79.0 - 98.0 fL [facility] MCH 32.4 27.0 - 34.8 pg [facility] MCHC 34.0 31.5 - 36.0 g/dL [facility] RDW 15.2(H) 10.8 - 14.6 % [facility] MPV 10.4 9.4 - 12.4 fl [facility] NRBC 0.00 /100 WBCs [facility] ABSOLUTE NRBC 0.00 K/uL [facility] DIFF METHOD Auto [facility] NEUTS 52.9 45.30 - 77.70 % [facility] LYMPHS 29.5 12.30 - 39.70 % [facility] MONOS 12.1 4.10 - 12.80 % [facility] EOS 2.7 0 - 7.2 % [facility] BASOS 1.2 0 - 2.80 % [facility] Granulocytes, immature (%) 1.6(H) 0.0 - 0.9 % [facility] ABSOLUTE NEUTS 5.06 1.40 - 7.70 K/uL [facility] ABSOLUTE LYMPHS 2.81 0.60 - 3.20 K/uL [facility] ABSOLUTE MONOS 1.15(H) 0.11 - 0.59 K/uL [facility] ABSOLUTE EOS 0.26 0.01 - 0.50 K/uL [facility] ABSOLUTE BASOS 0.11(H) 0.00 - 0.08 K/uL [facility] Granulocytes, immature 0.15(H) 0.00 - 0.05 K/uL [facility] Blood 06/13/2018 9:28 AM EDT 06/13/2018 9:35 AM EDT us Provider Not In System PhD LAB BLOOD BKR ORDERAB LES Final Result [address] [address] * PSA (screening) (06/13/2018 9:28 AM EDT) PSA 2.38 0 - 4.00 ng/mL [facility] Blood 06/13/2018 9:28 AM EDT 06/13/2018 9:35 AM EDT us Provider Not In System PhD LAB BLOOD BKR ORDERAB LES Final Result Performing Organization Address City/[facility]/ZIP Co de Phone Number [address] [address] * Alanine aminotransferase (ALT) (06/13/2018 9:28 AM EDT) ALT 12 0 - 40 U/L [facility] Blood 06/13/2018 9:28 AM EDT 06/13/2018 9:35 AM EDT us Provider Not In System PhD LAB BLOOD BKR ORDERAB LES Final Result Performing Organization Address City/[facility]/ZIP Co de Phone Number [address] [address] * Aspartate aminotransferase (AST) (06/13/2018 9:28 AM EDT) AST 22 0 - 37 U/L [facility] Blood 06/13/2018 9:28 AM EDT 06/13/2018 9:35 AM EDT us Provider Not In System PhD LAB BLOOD BKR ORDERAB LES Final Result Performing Organization Address City/[facility]/ZIP Co de Phone Number [address] [address] * (ABNORMAL) Lipid panel (06/13/2018 9:28 AM EDT) HDL 46 mg/dL [facility] Comment: Interpretation: Risk Level Males Decreased >45 mg/dL Average 40-45 mg/dL Increased <40 mg/dL CHOLESTEROL 154 0 - 240 mg/dL [facility] TRIGLYCERIDES 132 30 - 160 mg/dL [facility] LDL 82 50 - 129 mg/dL [facility] Comment: LDL levels in terms of risk for coronary heart disease: <100 mg/dL: Optimal 100-129 mg/dL: Near or above optimal 130-159 mg/dL: Borderline high 160-189 mg/dL: High >190 mg/dL: Very High CARDIAC RISK RATIO 3.3(L) 3.4 - 5.0 C [facility] Blood 06/13/2018 9:28 AM EDT 06/13/2018 9:35 AM EDT us Provider Not In System PhD LAB BLOOD BKR ORDERAB LES Final Result Performing Organization Address [facility]/ZIP Co de Phone Number [address] [address] * (ABNORMAL) Glucose (06/13/2018 9:28 AM EDT) GLUCOSE 102(H) 70 - 99 mg/dL [facility] Blood 06/13/2018 9:28 AM EDT 06/13/2018 9:35 AM EDT us Provider Not In System PhD LAB BLOOD BKR ORDERAB LES Final Result Performing Organization Address City/[facility]/ZIP Co de Phone Number [address] [address] documented in this encounter Visit Diagnoses Diagnosis Other abnormal glucose- Primary Pure hypercholesterolemia Atrial fibrillation, unspecified type documented in this encounter Care Teams Wastewater Supervisor Relationship Specialty Start Date End Date Andres De La Fuente DO PCP - General Family Medicine 04/03/18 07/09/19 Fabien Yang PA [address] [place] [address] PCP - General 07/10/19 documented as of this encounter Additional Source Comments The information contained in this document represents components of the legal health record. It is not the complete legal health record.[facility]
--- OUTSIDE RECORDS SUMMARY | 2025-09-04 13:01 | XMS_ITS | Encounter Summary ---
Author Organization [facility] Address [facility] [address] [place] [address] Phone Care Team Providers Care Coater Operator Name Role Phone Nancy Jose Neil DO Primary Care Provider [phone] Andres De La Fuente DO Primary Care Provider [phone] Fabien Yang Primary Care Provider + Encounter Details Date Type Department Care Team (Late st Contact Info) Description 03/31/2018 Transcribe Orders [facility] Specimen Processing [address] [place] [address] Taran Ortiz MD [address] [facility] [address], [address] [place] [address] [email or web address] Atrial fibrillation, unspecified type (Primary Dx); History of DVT (deep vein thrombosis) Social History Tobacco Use Types Packs/Day Years [...] Description 02/20/2026 11:00 AM EDT Office Visit [facility] [address] [facility] 3rd Floor, [address] [place] [address] Cris Drake, CHELSIE [address] [facility], [address] [place] [address] [email or web address] documented as of this encounter Results * (ABNORMAL) PT-INR (03/31/2018 5:45 AM EDT) PT 32.5(H) 10.2 - 12.9 sec [facility] INR 2.9(H) 0.9 - 1.1 [facility] Comment:Therapeutic range fo r oral Vitamin K antagonists: 2.0-3.5 Blood 03/31/2018 5:45 AM EDT 03/31/2018 9:11 AM EDT us Taran Ortiz MD LAB BLOOD BKR ORDERABLES Final R esult [facility] [address] [place] [address] documented in this encounter Visit Diagnoses Diagnosis Atrial fibrillation, unspecified type- Primary History of DVT (deep vein thrombosis) documented in this encounter Care Teams Coater Operator Relationship Specialty Start Date End Date Jose Cruz DO [address] [place] [address] PCP - General 07/22/17 04/02/18 Andres De La Fuente DO [address] [place] [address] PCP - General Family Medicine 04/03/18 07/09/19 Fabien Yang PA NPI: [id number] [place] [id number] PCP - General 07/10/19 documented as of this encounter Additional Source Comments The information contained in this document represents components of the legal health record. It is not the complete legal health record.[facility]
--- OUTSIDE RECORDS SUMMARY | 2025-09-04 13:01 | XMS_ITS | Encounter Summary ---
Author Organization [facility] Address [facility] [address] [place] [address] Phone Care Team Providers Care Beam Saw Operator Name Role Phone Andres De La Fuente Primary Care Provider [phone] Fabien Yang Primary Care Provider + Encounter Details Date Type Department Care Team (Latest Contact Info) Description 04/05/2018 Transcribe Orders [facility] Specimen Processing [address] [place] [address] Taran Ortiz MD [address] [facility] [address], [address] [place] [address] [email or web address] Anticoagulant long-term use (Primary Dx) Social History Tobacco Use Types [...] Description 02/20/2026 11:00 AM EDT Office Visit [facility] [address] [facility] 3rd Floor, [address] [place] [address] Cris Drake, CHELSIE [address] [facility], [address] [place] [address] [email or web address] documented as of this encounter Results * (ABNORMAL) PT-INR (04/05/2018 5:40 AM EDT) PT 28.9(H) 10.2 - 12.9 sec [facility] INR 2.6(H) 0.9 - 1.1 [facility] Comment:Therapeutic range fo r oral Vitamin K antagonists: 2.0-3.5 Blood 04/05/2018 5:40 AM EDT 04/05/2018 8:48 AM EDT us Taran Ortiz MD LAB BLOOD BKR ORDERABLES Final R esult [facility] [address] [place] [address] documented in this encounter Visit Diagnoses Diagnosis Anticoagulant long-term use- Primary Encounter for long-term (current) use of anticoagulants documented in this encounter Care Teams Beam Saw Operator Relationship Specialty Start Date End Date Andres De La Fuente DO PCP - General Family Medicine 04/03/18 07/09/19 Fabien Yang PA [address] [place] [address] PCP - General 07/10/19 documented as of this encounter Additional Source Comments The information contained in this document represents components of the legal health record. It is not the complete legal health record.[facility]
== END 2025-09-04 12:09 | disposition home or self-care (01) ==
LOC: HO.HMCH 11:02
PROVIDERS: PCP Physician Assistant; Visit Provider Physician Assistant
DX: Z00.00 Encounter for general adult medical examination without abnormal findings (principal); G30.9 Alzheimer's disease, unspecified; F02.80 Dementia in other diseases classified elsewhere, unspecified severity, without behavioral disturbance, psychotic disturbance, mood disturbance, and anxiety; I48.19 Other persistent atrial fibrillation; I73.00 Raynaud's syndrome without gangrene; E66.811 Obesity, class 1; G47.33 Obstructive sleep apnea (adult) (pediatric); Z68.31 Body mass index [BMI] 31.0-31.9, adult; E78.2 Mixed hyperlipidemia; R73.01 Impaired fasting glucose; R00.1 Bradycardia, unspecified

== ENCOUNTER → 2025-09-04 11:00 | Outpatient (BNVA) | payer MEDICARE, OTHER, SELFPAY | PROVIDERS: PCP Physician Assistant; Visit Provider Physician Assistant | DX: Z00.00 Encounter for general adult medical examination without abnormal findings (principal); I73.00 Raynaud's syndrome without gangrene; G30.9 Alzheimer's disease, unspecified; F02.80 Dementia in other diseases classified elsewhere, unspecified severity, without behavioral disturbance, psychotic disturbance, mood disturbance, and anxiety; E78.2 Mixed hyperlipidemia; G47.33 Obstructive sleep apnea (adult) (pediatric); Z99.89 Dependence on other enabling machines and devices; I48.19 Other persistent atrial fibrillation; R73.01 Impaired fasting glucose; R00.1 Bradycardia, unspecified; E66.811 Obesity, class 1 | CPT/HCPCS: 99397 ==